=== PATIENT | female | born 1955 | race Caucasian/White ===

== ENCOUNTER 2021-04-03 11:48 | Inpatient (IN) | payer MEDICARE, BC ==
[2021-04-07] MEDS ORDERED: oxyCODONE 5 MG Tab PO ONE (18:03)
[2021-04-07] MEDS ORDERED: Aluminum Hydroxide/Magnesium Hydroxide/Simethicone Susp 30 ML Cup PO PRN (18:07)
[2021-04-07] MEDS ORDERED: Ondansetron 4 MG Tab.DIS PO PRN (18:07)
[2021-04-07] MEDS ORDERED: Calcium Carbonate 500 MG Tab.Chew PO PRN (18:07)
[2021-04-07] MEDS ORDERED: Acetaminophen 500 MG Tab PO PRN (18:16)
[2021-04-07] MEDS ORDERED: Naproxen 250 MG Tab PO PRN (18:17)
[2021-04-07] MEDS ORDERED: CEFAZOLIN 2 GM/50 ML IV SCH (18:30)
[2021-04-07] MEDS ORDERED: Diazepam 5 MG/ML ML Oral Soln 30 ML Bottle PO SCH (18:30)
--- NOTE | 2021-04-07 18:39 | PCM.HP.2 ---
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 She was was admitted to [facility] on 03/27/2021 following a 1 day history of worsening low back pain that radiated down her right leg. She has a history of sciatic back pain for which she had a lumbar discectomy in the past. She initially afebrile but then developed a fever of 102.5. Labs were remarkable for leukocytosis and elevated CRP. She did have an MRI early on that showed possible early discitis at l%-S1 with no signs of osteomyelitis. Her pain was controlled with Dilaudid and Toradol and she was admitted for further management. Her pain worsened and she continued to run a fever. Eventually serial MRI was done along with labs and she was found to have developed positive blood cultures. She was given IV abx and had Infectious Disease and Neurosurgeon Consults. She did undergo PATTI and rule out any vegetation and these studies were negative. Her pain continued and the majority of her hospital stay was getting her pain under control. A lumbar abscess was noted on MRI and neurosurgeon ruled out need for surgery. She then developed constipation from the heavy opiate use for pain control and then also started to have urinary retention that was noted on an MRI. A jacobs was placed and it is planned that it will stay in place until she is more mobile and her constipation is resolved. She comes here for [facility] care and will receive Cefazolin via PICC line for 8 weeks and then also have Therapies. PCP:[facility] in [place] - Related Data Allergies/Adverse Reactions: Allergies Allergy/AdvReac Type Severity Reaction Status Date / Time codeine Allergy Nausea and Verified 04/07/21 18:02 Vomiting Home Medications: Home Meds Acetaminophen 1,000 mg PO BID PRN 04/07/21 [History] Alendronate [Fosamax] 10 mg PO DAILY 04/07/21 [History] Ascorbic Acid [Vitamin C] 500 mg PO DAILY 04/07/21 [History] Calcium Carb/Vit D3/Minerals [Calcium 600+D Plus Minerals] 1 tab PO DAILY 04/07/21 [History] Cholecalciferol (Vitamin D3) [Vitamin D3] 2 tab PO DAILY 04/07/21 [History] Famotidine 20 mg PO BID 04/07/21 [History] Gabapentin [Neurontin] 600 mg PO TID 04/07/21 [History] Heparin Sodium,Porcine [Heparin Lock] 3 ml IV ASDIRECTED PRN 04/07/21 [History] Lidocaine 5% [Lidoderm 5%] 3 patch TOP DAILY 04/07/21 [History] Multivit with Iron,Minerals [Complete Senior] 2 tab PO DAILY 04/07/21 [History] Naproxen [Naprosyn] 500 mg PO BID 04/07/21 [History] Naproxen [Naprosyn] 500 mg PO DAILY PRN 04/07/21 [History] Polyethylene Glycol [Polyox Wsr-301] 1 pack PO BID 04/07/21 [History] Sennosides/Docusate Sodium [Senna-S 8.6-50 mg Tablet] 2 tab PO BID PRN 04/07/21 [History] Sodium Chloride 0.9 % (Flush) [Gerson 0.9% NaCl with Cap] 10 ml IV ASDIRECTED PRN 04/07/21 [History] atorvaSTATin [Lipitor] 20 mg PO BEDTIME 04/07/21 [History] ceFAZolin [Ancef 2 GM/50 ML] 2,000 mg IV Q8H 04/07/21 [History] diazePAM [Valium] 2 mg PO TID 04/07/21 [History] fentaNYL [Duragesic] 25 mcg TOP Q72H 04/07/21 [History] hydrOXYzine pamoate [Hydroxyzine Pamoate] 25 mg PO Q6H PRN 04/07/21 [History] oxyCODONE HCl [Oxycodone HCL] 5 mg PO Q4H PRN 04/07/21 [History] oxyCODONE HCl [Oxycodone HCL] 10 mg PO Q4H PRN 04/07/21 [History] Past Medical History Musculoskeletal History: Reports: Other (See Below) (Discitis of L5-S1) Psychiatric History: Reports: Other (See Below) (Adjustment Disorder with Anxious Mood) Endocrine/Metabolic History: Reports: Obesity/BMI 30+, Other (See Below) (Hyperl ipidemia) - Infectious Disease History Infectious Disease History: Reports: Other (See Below) (MSSA Bacteremia Sepsis) Social & Family History - Tobacco Use Tobacco Use Status *Q: Never Tobacco User Second Hand Smoke Exposure: No - Caffeine Use Caffeine Use: Reports: Coffee Other Caffeine Use: 1 cup a day of coffee - Recreational Drug Use Recreational Drug Use: No - Living Situation & Occupation Living situation: Reports: , with Family H&P Review of Systems - Review of Systems: Review Of Systems: See Below General: Reports: Weakness HEENT: Reports: No Symptoms Pulmonary: Reports: No Symptoms Cardiovascular: Reports: No Symptoms Gastrointestinal: Reports: Constipation Genitourinary: Reports: Retention Musculoskeletal: Reports: Back Pain Skin: Reports: No Symptoms Psychiatric: Reports: No Symptoms Neurological: Reports: No Symptoms Hematologic/Lymphatic: Reports: No Symptoms Immunologic: Reports: No Symptoms Exam - Exam Exam: See Below - Vital Signs Vital Signs: Last Vital Signs Temp 36.6 C 04/07/21 17:15 Pulse 67 04/07/21 17:15 Resp 16 04/07/21 17:15 BP 142/75 H 04/07/21 17:15 Pulse Ox 91 L 04/07/21 18:07 Weight: 81.647 kg - Exam General: Alert, Oriented (Elderly female, dressed in street clothes, pleasant. Familt in room and supportive.) HEENT: Conjunctiva Clear, EACs Clear, Hearing Intact, Mucosa Moist & [place], Nares Patent Neck: Supple, Trachea Midline Lungs: Clear to Auscultation, Normal Respiratory Effort Cardiovascular: Regular Rate, Regular Rhythm, Normal S1, Normal S2 GI/Abdominal Exam: Normal Bowel Sounds, Soft, Non-Tender (Female) Exam: Deferred Rectal (Female) Exam: Deferred Back Exam: Other (Thoracic Back: Positive tenderness noted, no sx of trauma. Lumbar Back: Positive tenderness noted, no signs of trauma, tenderness extends to bilateral hip regions.) Extremities: Normal Inspection, Normal Range of Motion, No Pedal Edema, Normal Capillary Refill Skin: Warm, Dry, Intact Neurological: Cranial Nerves Intact Neuro Extensive - Mental Status: Alert, Oriented x3, Normal Mood/Affect, Normal Cognition, Memory Intact Psychiatric: Alert, Normal Affect, Normal Mood Sepsis Event Note - Focused Exam Vital Signs: Vital Signs Temp Pulse Resp BP Pulse Ox Pulse Ox 04/07/21 18:07 91 L 04/07/21 17:15 36.6 C 67 16 142/75 H 91 L - Problem List (1) Sepsis due to methicillin susceptible Staphylococcus aureus (MSSA) with acute hypercapnic respiratory failure SNOMED Code(s): 606428964 ICD Code: A41.01 - SEPSIS DUE TO METHICILLIN SUSCEPTIBLE STAPHYLOCOCCUS AUREUS; R65.20 - SEVERE SEPSIS WITHOUT SEPTIC SHOCK; J96.02 - ACUTE RESPIRATORY FAILURE WITH HYPERCAPNIA Status: Acute Current Visit: Yes Problem Details: Admitted to [facility] 03/28/21 with back pain and fever. Started on Vanco and Cefepime. Now being admitted her in [place] to [facility] and will continue Cefazolin course for 8 weeks, ending on 05/10/2021. (2) Bacteremia SNOMED Code(s): 7964103 ICD Code: R78.81 - BACTEREMIA Status: Acute Current Visit: Yes Problem Details: See above. Blood Cx positive for MSSA at [place]. (3) Discitis of lumbosacral region SNOMED Code(s): 2186268 ICD Code: M46.47 - DISCITIS, UNSPECIFIED, LUMBOSACRAL REGION Status: Acute Current Visit: Yes Problem Details: Still having significant back pain and needing oral Oxycdone, Naproxsen, and APAP along with Diazepam and Gabpentin. Will work on pain control. Also here for PT/OT to work on strenghtening so she can get back to her own home. (4) Constipation due to opioid therapy SNOMED Code(s): 218014565299069 ICD Code: K59.03 - DRUG INDUCED CONSTIPATION; T40.2X5A - ADVERSE EFFECT OF OTHER OPIOIDS, INITIAL ENCOUNTER Status: Acute Current Visit: Yes Problem Details: Had 2 BMs today prior to leaving [place]. Will monitor while here and using pain meds. Stol softners and laxatives ordered. (5) Urinary retention SNOMED Code(s): 291979811 ICD Code: R33.9 - RETENTION OF URINE, UNSPECIFIED Status: Acute Current Visit: Yes Problem Details: Jacobs is currently in place. Thought to be from the constipation. If bowels are working regularly with increased activity in therapy and pain controlled, will d/c and monitor for urinary retention. (6) Hyperlipidemia SNOMED Code(s): 66117246 ICD Code: E78.5 - HYPERLIPIDEMIA, UNSPECIFIED Status: Acute Current Visit: Yes Problem Details: Stable and will continue Lipitor 20mg po qd. Problem List Initiated/Reviewed/Updated: Yes Orders Last 24hrs: Active Orders 24 hr Category Date Time Status Patient Status [ADT] Stat ADT 04/07/21 18:07 Ordered Ambulate [RC] ASDIRECTED Care 04/07/21 18:07 Ordered Ambulate [RC] PER UNIT ROUTINE Care 04/07/21 18:14 Ordered Central Line Assessment [RC] QSHIFT Care 04/07/21 18:26 Ordered Enema [RC] PRN Care 04/07/21 18:09 Ordered Intake and Output [RC] QSHIFT Care 04/07/21 18:08 Ordered May Shower [RC] ASDIRECTED Care 04/07/21 18:07 Ordered Oxygen Therapy [RC] PRN Care 04/07/21 18:07 Ordered PICC Line [Central Line Insert Checklist] [RC] Care 04/07/21 18:24 Ordered ASDIRECTED Up With Assistance [RC] ASDIRECTED Care 04/07/21 18:07 Ordered VTE/DVT Education [RC] PER UNIT ROUTINE Care 04/07/21 18:07 Ordered Vital Signs [RC] PER UNIT ROUTINE Care 04/07/21 18:07 Ordered Consult to Case Management/Precinct Captain [CONS] Cons 04/07/21 18:07 Ordered Routine OT Evaluation and Treatment [CONS] Routine Cons 04/07/21 18:07 Ordered PT Evaluation and Treatment [CONS] Routine Cons 04/07/21 18:07 Ordered Regular Diet [DIET] Diet 04/07/21 Breakfast Ordered Acetaminophen [Tylenol Extra Strength] Med 04/07/21 18:16 Ordered 1,000 mg PO BID PRN Alendronate [Fosamax] Med 04/08/21 08:00 Ordered 10 mg PO DAILY Alum Hydrox/Mag Hydrox/Simeth [Mag-Al Plus] Med 04/07/21 18:07 Ordered 30 ml PO Q4H PRN Ascorbic Acid [Vitamin C] Med 04/08/21 08:00 Ordered 500 mg PO DAILY Calcium Carb/Vit D3/Minerals [Calcium 600+D Plus Med 04/08/21 08:00 Ordered Minerals] 1 tab PO DAILY Calcium Carbonate [Tums] Med 04/07/21 18:07 Ordered 500 mg PO Q2HR PRN Cholecalciferol (Vitamin D3) [Vitamin D3] Med 04/08/21 08:00 Ordered 50 mcg PO DAILY Docusate Sodium/Sennosides [Senna Plus] Med 04/07/21 18:17 Ordered 2 tab PO BID PRN Famotidine [Pepcid] Med 04/08/21 08:00 Ordered 20 mg PO BID Gabapentin [Neurontin] Med 04/08/21 08:00 Ordered 600 mg PO TID Heparin Sodium,Porcine [Heparin Lock] Med 04/07/21 18:17 Ordered 3 ml IV ASDIRECTED PRN Lidocaine 5% Med 04/08/21 08:00 Ordered 3 patch TOP DAILY Multivit with Iron,Minerals [Complete Senior] Med 04/08/21 08:00 Ordered 2 tab PO DAILY Naproxen [Naprosyn] Med 04/08/21 08:00 Ordered 500 mg PO BID Naproxen [Naprosyn] Med 04/07/21 18:17 Ordered 500 mg PO DAILY PRN Ondansetron [Zofran ODT] Med 04/07/21 18:07 Ordered 4 mg PO Q4H PRN Polyethylene Glycol [Polyox Wsr-301] Med 04/08/21 08:00 Ordered 1 pack PO BID Sodium Chloride 0.9 % (Flush) [Gerson 0.9% NaCl with Med 04/07/21 18:17 Ordered Cap] 10 ml IV ASDIRECTED PRN atorvaSTATin [Lipitor] Med 04/07/21 20:00 Ordered 20 mg PO BEDTIME ceFAZolin [Ancef 2 GM/50 ML] Med 04/07/21 18:30 Ordered 2,000 mg IV Q8H diazePAM [Valium] Med 04/08/21 08:00 Ordered 2 mg PO TID fentaNYL [Duragesic] Med 04/07/21 18:30 Ordered 25 mcg TOP Q72H hydrOXYzine pamoate [Vistaril] Med 04/07/21 18:17 Ordered 25 mg PO Q6H PRN oxyCODONE HCl Med 04/07/21 18:17 Ordered 10 mg PO Q4H PRN oxyCODONE HCl Med 04/07/21 18:17 Ordered 5 mg PO Q4H PRN Central Line PICC Discontinue [OM.PC] Routine Oth 04/07/21 18:19 Ordered Family to Bring [COMM] Click to Edit Oth 04/07/21 18:21 Ordered Resuscitation Status Routine Resus Stat 04/07/21 18:07 Ordered Medication Orders Acetaminophen (Acetaminophen 500 Mg Tab) 1,000 mg PO BID PRN PRN Reason: Fever Al Hydroxide/Mg Hydroxide (Aluminum Hydroxide/Magnesium Hydroxide/Simethicone Susp 30 Ml Cup) 30 ml PO Q4H PRN PRN Reason: Nausea Ascorbic Acid (Ascorbic Acid 500 Mg Tab) 500 mg PO DAILY [facility] Atorvastatin Calcium (Atorvastatin 10 Mg Tab) 20 mg PO BEDTIME [facility] Calcium Carbonate/Glycine (Calcium Carbonate 500 Mg Tab.Chew) 500 mg PO Q2HR PRN PRN Reason: Nausea Cholecalciferol (Cholecalciferol (Vitamin D3) 25 Mcg Tab) 50 mcg PO DAILY [facility] Famotidine (Famotidine 20 Mg Tab) 20 mg PO BID [facility] Fentanyl (Fentanyl 12 Mcg/Hr Transdermal Patch) 25 mcg TOP Q72H [facility] Gabapentin (Gabapentin 300 Mg Cap) 600 mg PO TID [facility] Hydroxyzine Pamoate (Hydroxyzine Pamoate 25 Mg Cap) 25 mg PO Q6H PRN PRN Reason: Anxiety Non-Formulary Medication (Alendronate [Fosamax]) 10 mg PO DAILY [facility] Non-Formulary Medication (Calcium Carb/Vit D3/Minerals [Calcium 600+D Plus Minerals]) 1 tab PO DAILY [facility] Non-Formulary Medication (Cefazolin [Ancef 2 Gm/50 Ml]) 2,000 mg IV Q8H [facility] Stop: 05/10/21 23:00 Non-Formulary Medication (Diazepam [Valium]) 2 mg PO TID [facility] Non-Formulary Medication (Heparin Sodium,Porcine [Heparin Lock]) 3 ml IV ASDIRECTED PRN PRN Reason: PICC Non-Formulary Medication (Lidocaine 5%) 3 patch TOP DAILY [facility] Non-Formulary Medication (Multivit With Iron,Minerals [Complete Senior]) 2 tab PO DAILY [facility] Non-Formulary Medication (Naproxen [Naprosyn]) 500 mg PO BID [facility] Non-Formulary Medication (Naproxen [Naprosyn]) 500 mg PO DAILY PRN PRN Reason: Pain Non-Formulary Medication (Oxycodone Hcl) 5 mg PO Q4H PRN PRN Reason: Pain Non-Formulary Medication (Oxycodone Hcl) 10 mg PO Q4H PRN PRN Reason: Pain Non-Formulary Medication (Polyethylene Glycol [Polyox Wsr-301]) 1 pack PO BID [facility] Non-Formulary Medication (Sodium Chloride 0.9 % (Flush) [Gerson 0.9% Nacl With Cap]) 10 ml IV ASDIRECTED PRN PRN Reason: PICC Ondansetron HCl (Ondansetron 4 Mg Tab.Dis) 4 mg PO Q4H PRN PRN Reason: Nausea/Vomiting Senna/Docusate Sodium (Docusate Sodium/Sennosides 50-8.6 Mg Tab) 2 tab PO BID PRN PRN Reason: Constipation Assessment/Plan Comment:: See above. - Mortality Measure Prognosis:: Good
[2021-04-07] MEDS: ceFAZolin 2 GM in Premix Bag 1 BAG IV SCH (19:49)
[2021-04-07] MEDS: atorvaSTATin 10 MG Tab PO SCH (19:49)
[2021-04-07] MEDS: Polyethylene Glycol 3350 Powder 17 GM Packet PO SCH (19:51)
[2021-04-07] MEDS: Naproxen 250 MG Tab PO SCH (19:51)
[2021-04-07] MEDS: Sodium Chloride 0.9% 10 ML Syringe FLUSH PRN (20:28)
[2021-04-08] MEDS: Sodium Chloride 0.9% 10 ML Syringe FLUSH PRN ×2 (02:21→17:32)
[2021-04-08] MEDS: ceFAZolin 2 GM in Premix Bag 1 BAG IV SCH ×3 (02:21→17:33)
[2021-04-08] MEDS: oxyCODONE 5 MG Tab PO PRN ×4 (04:07→19:50)
[2021-04-08] MEDS ORDERED: ALENDRONATE 10 MG PO SCH (08:00)
[2021-04-08] MEDS: Lidocaine 4% 1 each Patch TOP SCH (08:38)
[2021-04-08] MEDS: Cholecalciferol (Vitamin D3) 25 MCG Tab PO SCH (08:39)
[2021-04-08] MEDS: hydrOXYzine Pamoate 25 MG Cap PO PRN (08:39)
[2021-04-08] MEDS: Multivitamins with Iron and Minerals Tab.Chew PO SCH (08:39)
[2021-04-08] MEDS: Gabapentin 300 MG Cap PO SCH ×3 (08:40→17:31)
[2021-04-08] MEDS: Ascorbic Acid 500 MG Tab PO SCH (08:40)
[2021-04-08] MEDS: Famotidine 20 MG Tab PO SCH ×2 (08:41→17:31)
[2021-04-08] MEDS: Calcium Carbonate/Vitamin D3 625 MG-125 Unit Tab PO SCH (08:41)
[2021-04-08] MEDS: Diazepam 5 MG Tab PO SCH ×3 (08:41→17:31)
[2021-04-08] MEDS: Naproxen 250 MG Tab PO SCH ×2 (08:42→17:43)
[2021-04-08] MEDS: Polyethylene Glycol 3350 Powder 17 GM Packet PO SCH ×2 (13:36→17:32)
[2021-04-08] MEDS: fentaNYL 50 MCG/HR Transdermal Patch TRDERM SCH (15:20)
[2021-04-08] MEDS: atorvaSTATin 10 MG Tab PO SCH (19:50)
[2021-04-08] MEDS ORDERED: Naloxone 0.4 MG/ML SDV IVPUSH PRN (20:54)
[2021-04-09] MEDS: ceFAZolin 2 GM in Premix Bag 1 BAG IV SCH ×3 (02:28→17:40)
[2021-04-09] MEDS: Sodium Chloride 0.9% 10 ML Syringe FLUSH PRN ×3 (02:29→17:41)
[2021-04-09] MEDS: Ascorbic Acid 500 MG Tab PO SCH (08:00)
[2021-04-09] MEDS: Multivitamins with Iron and Minerals Tab.Chew PO SCH (08:00)
[2021-04-09] MEDS: Diazepam 5 MG Tab PO SCH ×3 (08:01→17:37)
[2021-04-09] MEDS: oxyCODONE 5 MG Tab PO PRN ×2 (08:01→12:55)
[2021-04-09] MEDS: Gabapentin 300 MG Cap PO SCH ×3 (08:01→17:37)
[2021-04-09] MEDS: Naproxen 250 MG Tab PO SCH ×2 (08:01→17:37)
[2021-04-09] MEDS: Calcium Carbonate/Vitamin D3 625 MG-125 Unit Tab PO SCH (08:01)
[2021-04-09] MEDS: Cholecalciferol (Vitamin D3) 25 MCG Tab PO SCH (08:02)
[2021-04-09] MEDS: Famotidine 20 MG Tab PO SCH ×2 (08:02→17:38)
[2021-04-09] MEDS: Lidocaine 4% 1 each Patch TOP SCH (08:02)
[2021-04-09] MEDS: Polyethylene Glycol 3350 Powder 17 GM Packet PO SCH ×2 (08:09→17:40)
[2021-04-09] MEDS: atorvaSTATin 10 MG Tab PO SCH (19:32)
[2021-04-10] MEDS: Sodium Chloride 0.9% 10 ML Syringe FLUSH PRN (02:30)
[2021-04-10] MEDS: ceFAZolin 2 GM in Premix Bag 1 BAG IV SCH ×3 (02:30→17:44)
[2021-04-10] MEDS: Lidocaine 4% 1 each Patch TOP SCH (07:51)
[2021-04-10] MEDS: Polyethylene Glycol 3350 Powder 17 GM Packet PO SCH ×2 (07:52→17:44)
[2021-04-10] MEDS: Multivitamins with Iron and Minerals Tab.Chew PO SCH (07:56)
[2021-04-10] MEDS: oxyCODONE 5 MG Tab PO PRN ×3 (07:57→19:35)
[2021-04-10] MEDS: Famotidine 20 MG Tab PO SCH ×2 (07:57→17:44)
[2021-04-10] MEDS: Gabapentin 300 MG Cap PO SCH ×3 (07:58→17:44)
[2021-04-10] MEDS ORDERED: fentaNYL 25 MCG/HR Transdermal Patch TOP SCH (08:00)
[2021-04-10] MEDS: Naproxen 250 MG Tab PO SCH ×2 (08:00→17:45)
[2021-04-10] MEDS: Calcium Carbonate/Vitamin D3 625 MG-125 Unit Tab PO SCH (08:02)
[2021-04-10] MEDS: Ascorbic Acid 500 MG Tab PO SCH (08:02)
[2021-04-10] MEDS: Diazepam 5 MG Tab PO SCH ×3 (08:03→19:38)
[2021-04-10] MEDS: Cholecalciferol (Vitamin D3) 25 MCG Tab PO SCH (08:04)
[2021-04-10] MEDS ORDERED: Saliva Substitute Oral Spray 120 ML Bottle MUCMEM PRN (11:52)
[2021-04-10] MEDS: atorvaSTATin 10 MG Tab PO SCH (19:36)
[2021-04-11] MEDS: ceFAZolin 2 GM in Premix Bag 1 BAG IV SCH ×3 (02:54→18:11)
[2021-04-11] MEDS: Sodium Chloride 0.9% 10 ML Syringe FLUSH PRN ×3 (03:09→18:12)
[2021-04-11] MEDS: Polyethylene Glycol 3350 Powder 17 GM Packet PO SCH ×2 (07:50→17:37)
[2021-04-11] MEDS: Gabapentin 300 MG Cap PO SCH ×3 (07:51→17:36)
[2021-04-11] MEDS: Ascorbic Acid 500 MG Tab PO SCH (07:52)
[2021-04-11] MEDS: Naproxen 250 MG Tab PO SCH (07:52)
[2021-04-11] MEDS: Diazepam 5 MG Tab PO SCH ×2 (07:53→15:06)
[2021-04-11] MEDS: Cholecalciferol (Vitamin D3) 25 MCG Tab PO SCH (07:53)
[2021-04-11] MEDS: Multivitamin Tab PO SCH (07:54)
[2021-04-11] MEDS: Calcium Carbonate/Vitamin D3 625 MG-125 Unit Tab PO SCH (07:54)
[2021-04-11] MEDS: Famotidine 20 MG Tab PO SCH ×2 (07:54→17:36)
[2021-04-11] MEDS: Lidocaine 4% 1 each Patch TOP SCH (07:55)
[2021-04-11] MEDS: Alendronate 70 MG Tab PO SCH (07:59)
[2021-04-11] MEDS: oxyCODONE 5 MG Tab PO PRN (17:37)
[2021-04-11] MEDS: fentaNYL 50 MCG/HR Transdermal Patch TRDERM SCH (18:52)
[2021-04-11] MEDS: Acetaminophen 500 MG Tab PO SCH (19:41)
[2021-04-11] MEDS: atorvaSTATin 10 MG Tab PO SCH (19:41)
[2021-04-12] MEDS: ceFAZolin 2 GM in Premix Bag 1 BAG IV SCH ×3 (02:33→17:34)
[2021-04-12] MEDS: Sodium Chloride 0.9% 10 ML Syringe FLUSH PRN ×4 (02:34→17:35)
[2021-04-12] MEDS: Polyethylene Glycol 3350 Powder 17 GM Packet PO SCH ×2 (07:56→17:34)
[2021-04-12] MEDS: Multivitamin Tab PO SCH (07:57)
[2021-04-12] MEDS: Lidocaine 4% 1 each Patch TOP SCH (07:57)
[2021-04-12] MEDS: Acetaminophen 500 MG Tab PO SCH ×3 (07:58→19:38)
[2021-04-12] MEDS: Ascorbic Acid 500 MG Tab PO SCH (07:59)
[2021-04-12] MEDS: Famotidine 20 MG Tab PO SCH ×2 (07:59→17:34)
[2021-04-12] MEDS: Calcium Carbonate/Vitamin D3 625 MG-125 Unit Tab PO SCH (07:59)
[2021-04-12] MEDS: Gabapentin 300 MG Cap PO SCH ×3 (08:00→17:33)
[2021-04-12] MEDS: Cholecalciferol (Vitamin D3) 25 MCG Tab PO SCH (08:07)
[2021-04-12] MEDS: oxyCODONE 5 MG Tab PO PRN ×3 (10:34→19:38)
[2021-04-12] MEDS: hydrOXYzine Pamoate 25 MG Cap PO PRN ×2 (11:00→17:34)
[2021-04-12] MEDS ORDERED: Morphine 2 MG/ML SYRINGE IVPUSH ONE (15:20)
[2021-04-12] MEDS: atorvaSTATin 10 MG Tab PO SCH (19:38)
[2021-04-13] MEDS: ceFAZolin 2 GM in Premix Bag 1 BAG IV SCH ×3 (02:32→17:52)
[2021-04-13] MEDS: Sodium Chloride 0.9% 10 ML Syringe FLUSH PRN (02:33)
[2021-04-13] MEDS: hydrOXYzine Pamoate 25 MG Cap PO PRN (02:36)
[2021-04-13] MEDS: oxyCODONE 5 MG Tab PO PRN ×4 (02:37→20:44)
[2021-04-13] MEDS: Cholecalciferol (Vitamin D3) 25 MCG Tab PO SCH (08:13)
[2021-04-13] MEDS: Multivitamin Tab PO SCH (08:13)
[2021-04-13] MEDS: Ascorbic Acid 500 MG Tab PO SCH (08:14)
[2021-04-13] MEDS: Acetaminophen 500 MG Tab PO SCH ×3 (08:14→20:44)
[2021-04-13] MEDS: Famotidine 20 MG Tab PO SCH ×2 (08:15→17:05)
[2021-04-13] MEDS: Gabapentin 300 MG Cap PO SCH ×3 (08:15→17:05)
[2021-04-13] MEDS: Calcium Carbonate/Vitamin D3 625 MG-125 Unit Tab PO SCH (08:15)
[2021-04-13] MEDS: Polyethylene Glycol 3350 Powder 17 GM Packet PO SCH ×2 (08:15→17:06)
[2021-04-13] MEDS: Lidocaine 4% 1 each Patch TOP SCH (08:15)
[2021-04-13] MEDS: atorvaSTATin 10 MG Tab PO SCH (20:44)
[2021-04-14] MEDS: ceFAZolin 2 GM in Premix Bag 1 BAG IV SCH ×3 (02:42→17:37)
[2021-04-14] MEDS: oxyCODONE 5 MG Tab PO PRN ×5 (02:45→21:43)
[2021-04-14] MEDS: hydrOXYzine Pamoate 25 MG Cap PO PRN ×2 (06:20→12:24)
[2021-04-14] MEDS: Lidocaine 4% 1 each Patch TOP SCH (08:04)
[2021-04-14] MEDS: Polyethylene Glycol 3350 Powder 17 GM Packet PO SCH ×2 (08:04→17:37)
[2021-04-14] MEDS: Multivitamin Tab PO SCH (08:05)
[2021-04-14] MEDS: Calcium Carbonate/Vitamin D3 625 MG-125 Unit Tab PO SCH (08:06)
[2021-04-14] MEDS: Famotidine 20 MG Tab PO SCH ×2 (08:07→17:37)
[2021-04-14] MEDS: Acetaminophen 500 MG Tab PO SCH ×3 (08:07→19:52)
[2021-04-14] MEDS: Cholecalciferol (Vitamin D3) 25 MCG Tab PO SCH (08:07)
[2021-04-14] MEDS: Ascorbic Acid 500 MG Tab PO SCH (08:07)
[2021-04-14] MEDS: Gabapentin 300 MG Cap PO SCH ×3 (08:08→17:36)
[2021-04-14] MEDS: Sodium Chloride 0.9% 10 ML Syringe FLUSH PRN ×2 (11:06→17:39)
[2021-04-14] MEDS: atorvaSTATin 10 MG Tab PO SCH (19:53)
[2021-04-15] MEDS: ceFAZolin 2 GM in Premix Bag 1 BAG IV SCH ×3 (02:43→17:47)
[2021-04-15] MEDS: Sodium Chloride 0.9% 10 ML Syringe FLUSH PRN ×4 (02:44→18:39)
[2021-04-15] MEDS: oxyCODONE 5 MG Tab PO PRN ×5 (03:26→22:18)
[2021-04-15] MEDS: Gabapentin 300 MG Cap PO SCH ×3 (08:18→17:45)
[2021-04-15] MEDS: Calcium Carbonate/Vitamin D3 625 MG-125 Unit Tab PO SCH (08:19)
[2021-04-15] MEDS: Acetaminophen 500 MG Tab PO SCH ×3 (08:19→19:51)
[2021-04-15] MEDS: hydrOXYzine Pamoate 25 MG Cap PO PRN (08:25)
[2021-04-15] MEDS: Ascorbic Acid 500 MG Tab PO SCH (08:26)
[2021-04-15] MEDS: Multivitamin Tab PO SCH (08:26)
[2021-04-15] MEDS: Cholecalciferol (Vitamin D3) 25 MCG Tab PO SCH (08:26)
[2021-04-15] MEDS: Famotidine 20 MG Tab PO SCH ×2 (08:27→17:45)
[2021-04-15] MEDS: Lidocaine 4% 1 each Patch TOP SCH (08:35)
[2021-04-15] MEDS: Polyethylene Glycol 3350 Powder 17 GM Packet PO SCH ×2 (09:42→17:46)
[2021-04-15] MEDS: atorvaSTATin 10 MG Tab PO SCH (19:51)
[2021-04-16] MEDS: ceFAZolin 2 GM in Premix Bag 1 BAG IV SCH ×3 (02:13→17:48)
[2021-04-16] MEDS: Sodium Chloride 0.9% 10 ML Syringe FLUSH PRN ×4 (02:14→18:25)
[2021-04-16] MEDS: oxyCODONE 5 MG Tab PO PRN ×5 (03:00→20:00)
[2021-04-16] MEDS: Lidocaine 4% 1 each Patch TOP SCH (07:56)
[2021-04-16] MEDS: Calcium Carbonate/Vitamin D3 625 MG-125 Unit Tab PO SCH (07:58)
[2021-04-16] MEDS: Multivitamin Tab PO SCH (07:58)
[2021-04-16] MEDS: Cholecalciferol (Vitamin D3) 25 MCG Tab PO SCH (07:59)
[2021-04-16] MEDS: hydrOXYzine Pamoate 25 MG Cap PO PRN ×2 (07:59→13:58)
[2021-04-16] MEDS: Gabapentin 300 MG Cap PO SCH ×3 (08:00→17:49)
[2021-04-16] MEDS: Famotidine 20 MG Tab PO SCH ×2 (08:00→17:49)
[2021-04-16] MEDS: Ascorbic Acid 500 MG Tab PO SCH (08:00)
[2021-04-16] MEDS: Acetaminophen 500 MG Tab PO SCH ×3 (08:01→20:00)
[2021-04-16] MEDS: Polyethylene Glycol 3350 Powder 17 GM Packet PO SCH ×2 (08:05→17:48)
[2021-04-16] MEDS: atorvaSTATin 10 MG Tab PO SCH (20:00)
[2021-04-17] MEDS: oxyCODONE 5 MG Tab PO PRN ×5 (02:21→17:53)
[2021-04-17] MEDS: ceFAZolin 2 GM in Premix Bag 1 BAG IV SCH ×3 (02:23→17:52)
[2021-04-17] MEDS: Sodium Chloride 0.9% 10 ML Syringe FLUSH PRN ×4 (02:24→18:23)
[2021-04-17] MEDS: Lidocaine 4% 1 each Patch TOP SCH (07:31)
[2021-04-17] MEDS: Polyethylene Glycol 3350 Powder 17 GM Packet PO SCH ×2 (07:32→17:54)
[2021-04-17] MEDS: Ascorbic Acid 500 MG Tab PO SCH (07:33)
[2021-04-17] MEDS: Calcium Carbonate/Vitamin D3 625 MG-125 Unit Tab PO SCH (07:33)
[2021-04-17] MEDS: Famotidine 20 MG Tab PO SCH ×2 (07:33→17:53)
[2021-04-17] MEDS: Acetaminophen 500 MG Tab PO SCH ×3 (07:34→19:39)
[2021-04-17] MEDS: Gabapentin 300 MG Cap PO SCH ×3 (07:34→17:53)
[2021-04-17] MEDS: Multivitamin Tab PO SCH (07:35)
[2021-04-17] MEDS: hydrOXYzine Pamoate 25 MG Cap PO PRN ×2 (07:35→17:52)
[2021-04-17] MEDS: Cholecalciferol (Vitamin D3) 25 MCG Tab PO SCH (07:35)
[2021-04-17] MEDS: atorvaSTATin 10 MG Tab PO SCH (19:38)
[2021-04-18] MEDS: ceFAZolin 2 GM in Premix Bag 1 BAG IV SCH ×3 (02:16→18:03)
[2021-04-18] MEDS: Sodium Chloride 0.9% 10 ML Syringe FLUSH PRN (02:17)
[2021-04-18] MEDS: oxyCODONE 5 MG Tab PO PRN ×4 (02:30→20:44)
[2021-04-18] MEDS: Alendronate 70 MG Tab PO SCH (07:40)
[2021-04-18] MEDS: Polyethylene Glycol 3350 Powder 17 GM Packet PO SCH ×2 (07:59→17:10)
[2021-04-18] MEDS: Cholecalciferol (Vitamin D3) 25 MCG Tab PO SCH (08:00)
[2021-04-18] MEDS: Calcium Carbonate/Vitamin D3 625 MG-125 Unit Tab PO SCH (08:00)
[2021-04-18] MEDS: Multivitamin Tab PO SCH (08:00)
[2021-04-18] MEDS: Gabapentin 300 MG Cap PO SCH ×3 (08:00→17:10)
[2021-04-18] MEDS: Ascorbic Acid 500 MG Tab PO SCH (08:00)
[2021-04-18] MEDS: hydrOXYzine Pamoate 25 MG Cap PO PRN (08:00)
[2021-04-18] MEDS: Acetaminophen 500 MG Tab PO SCH ×3 (08:01→20:44)
[2021-04-18] MEDS: Famotidine 20 MG Tab PO SCH ×2 (08:02→17:10)
[2021-04-18] MEDS: Lidocaine 4% 1 each Patch TOP SCH (08:03)
[2021-04-18] MEDS: atorvaSTATin 10 MG Tab PO SCH (20:44)
[2021-04-19] MEDS: Sodium Chloride 0.9% 10 ML Syringe FLUSH PRN ×3 (03:01→11:38)
[2021-04-19] MEDS: ceFAZolin 2 GM in Premix Bag 1 BAG IV SCH ×3 (03:01→19:59)
[2021-04-19] MEDS: oxyCODONE 5 MG Tab PO PRN ×5 (03:15→19:57)
[2021-04-19] MEDS: hydrOXYzine Pamoate 25 MG Cap PO PRN ×2 (06:34→12:07)
[2021-04-19] MEDS: Acetaminophen 500 MG Tab PO SCH ×4 (06:34→19:57)
[2021-04-19] MEDS: Cholecalciferol (Vitamin D3) 25 MCG Tab PO SCH (07:39)
[2021-04-19] MEDS: Calcium Carbonate/Vitamin D3 625 MG-125 Unit Tab PO SCH (07:39)
[2021-04-19] MEDS: Lidocaine 4% 1 each Patch TOP SCH (07:41)
[2021-04-19] MEDS: Gabapentin 300 MG Cap PO SCH ×3 (07:41→19:58)
[2021-04-19] MEDS: Ascorbic Acid 500 MG Tab PO SCH (07:41)
[2021-04-19] MEDS: Multivitamin Tab PO SCH (07:41)
[2021-04-19] MEDS: Famotidine 20 MG Tab PO SCH ×2 (07:41→19:58)
[2021-04-19] MEDS: Polyethylene Glycol 3350 Powder 17 GM Packet PO SCH (07:42)
[2021-04-19] MEDS: atorvaSTATin 10 MG Tab PO SCH (19:59)
[2021-04-20] MEDS: Sodium Chloride 0.9% 10 ML Syringe FLUSH PRN ×3 (01:42→11:29)
[2021-04-20] MEDS: ceFAZolin 2 GM in Premix Bag 1 BAG IV SCH ×3 (01:42→18:24)
[2021-04-20] MEDS: oxyCODONE 5 MG Tab PO PRN ×3 (02:25→21:06)
[2021-04-20] MEDS: Polyethylene Glycol 3350 Powder 17 GM Packet PO SCH (08:55)
[2021-04-20] MEDS: Multivitamin Tab PO SCH (08:55)
[2021-04-20] MEDS: Famotidine 20 MG Tab PO SCH ×2 (08:56→17:30)
[2021-04-20] MEDS: Gabapentin 300 MG Cap PO SCH ×3 (08:56→17:29)
[2021-04-20] MEDS: Acetaminophen 500 MG Tab PO SCH ×3 (08:57→21:05)
[2021-04-20] MEDS: Calcium Carbonate/Vitamin D3 625 MG-125 Unit Tab PO SCH (08:58)
[2021-04-20] MEDS: Cholecalciferol (Vitamin D3) 25 MCG Tab PO SCH (08:58)
[2021-04-20] MEDS: Ascorbic Acid 500 MG Tab PO SCH (08:58)
[2021-04-20] MEDS: Lidocaine 4% 1 each Patch TOP SCH (09:00)
[2021-04-20] MEDS: atorvaSTATin 10 MG Tab PO SCH (21:04)
[2021-04-21] MEDS: ceFAZolin 2 GM in Premix Bag 1 BAG IV SCH ×3 (03:44→18:24)
[2021-04-21] MEDS: oxyCODONE 5 MG Tab PO PRN ×3 (04:33→18:26)
[2021-04-21] MEDS: Ascorbic Acid 500 MG Tab PO SCH (08:07)
[2021-04-21] MEDS: Famotidine 20 MG Tab PO SCH ×2 (08:07→18:24)
[2021-04-21] MEDS: Polyethylene Glycol 3350 Powder 17 GM Packet PO SCH (08:07)
[2021-04-21] MEDS: Calcium Carbonate/Vitamin D3 625 MG-125 Unit Tab PO SCH (08:07)
[2021-04-21] MEDS: Lidocaine 4% 1 each Patch TOP SCH (08:07)
[2021-04-21] MEDS: Gabapentin 300 MG Cap PO SCH ×3 (08:08→18:24)
[2021-04-21] MEDS: Multivitamin Tab PO SCH (08:08)
[2021-04-21] MEDS: Cholecalciferol (Vitamin D3) 25 MCG Tab PO SCH (08:08)
[2021-04-21] MEDS: Acetaminophen 500 MG Tab PO SCH ×3 (08:09→21:47)
[2021-04-21] MEDS: Sodium Chloride 0.9% 10 ML Syringe FLUSH PRN ×3 (11:26→18:24)
[2021-04-21] MEDS: atorvaSTATin 10 MG Tab PO SCH (21:48)
[2021-04-22] MEDS: ceFAZolin 2 GM in Premix Bag 1 BAG IV SCH ×3 (02:41→19:02)
[2021-04-22] MEDS: oxyCODONE 5 MG Tab PO PRN ×2 (04:32→17:48)
[2021-04-22] MEDS: Ascorbic Acid 500 MG Tab PO SCH (08:01)
[2021-04-22] MEDS: Polyethylene Glycol 3350 Powder 17 GM Packet PO SCH (08:01)
[2021-04-22] MEDS: Lidocaine 4% 1 each Patch TOP SCH (08:01)
[2021-04-22] MEDS: Famotidine 20 MG Tab PO SCH ×2 (08:01→17:48)
[2021-04-22] MEDS: Acetaminophen 500 MG Tab PO SCH ×3 (08:02→19:04)
[2021-04-22] MEDS: Cholecalciferol (Vitamin D3) 25 MCG Tab PO SCH (08:02)
[2021-04-22] MEDS: Calcium Carbonate/Vitamin D3 625 MG-125 Unit Tab PO SCH (08:02)
[2021-04-22] MEDS: Multivitamin Tab PO SCH (08:02)
[2021-04-22] MEDS: Gabapentin 300 MG Cap PO SCH ×3 (08:03→17:48)
[2021-04-22] MEDS: Sodium Chloride 0.9% 10 ML Syringe FLUSH PRN (10:57)
[2021-04-22] MEDS: atorvaSTATin 10 MG Tab PO SCH (19:04)
[2021-04-23] MEDS: ceFAZolin 2 GM in Premix Bag 1 BAG IV SCH ×3 (02:57→17:52)
[2021-04-23] MEDS: Cholecalciferol (Vitamin D3) 25 MCG Tab PO SCH (07:05)
[2021-04-23] MEDS: Calcium Carbonate/Vitamin D3 625 MG-125 Unit Tab PO SCH (07:05)
[2021-04-23] MEDS: Famotidine 20 MG Tab PO SCH ×2 (07:06→17:52)
[2021-04-23] MEDS: Polyethylene Glycol 3350 Powder 17 GM Packet PO SCH (07:06)
[2021-04-23] MEDS: Gabapentin 300 MG Cap PO SCH ×3 (07:06→17:52)
[2021-04-23] MEDS: Multivitamin Tab PO SCH (07:06)
[2021-04-23] MEDS: Acetaminophen 500 MG Tab PO SCH ×3 (07:06→20:44)
[2021-04-23] MEDS: Ascorbic Acid 500 MG Tab PO SCH (07:06)
[2021-04-23] MEDS: Lidocaine 4% 1 each Patch TOP SCH (07:07)
[2021-04-23] MEDS: oxyCODONE 5 MG Tab PO PRN ×3 (07:08→20:44)
[2021-04-23] MEDS: Sodium Chloride 0.9% 10 ML Syringe FLUSH PRN ×4 (11:16→18:35)
[2021-04-23] MEDS: hydrOXYzine Pamoate 25 MG Cap PO PRN (18:35)
[2021-04-23] MEDS: atorvaSTATin 10 MG Tab PO SCH (20:44)
[2021-04-24] MEDS: oxyCODONE 5 MG Tab PO PRN ×4 (02:44→18:16)
[2021-04-24] MEDS: ceFAZolin 2 GM in Premix Bag 1 BAG IV SCH ×3 (02:44→18:16)
[2021-04-24] MEDS: Acetaminophen 500 MG Tab PO SCH ×3 (07:43→20:38)
[2021-04-24] MEDS: Multivitamin Tab PO SCH (07:43)
[2021-04-24] MEDS: Calcium Carbonate/Vitamin D3 625 MG-125 Unit Tab PO SCH (07:43)
[2021-04-24] MEDS: Cholecalciferol (Vitamin D3) 25 MCG Tab PO SCH (07:43)
[2021-04-24] MEDS: Gabapentin 300 MG Cap PO SCH ×3 (07:44→17:42)
[2021-04-24] MEDS: Famotidine 20 MG Tab PO SCH ×2 (07:44→17:42)
[2021-04-24] MEDS: Ascorbic Acid 500 MG Tab PO SCH (07:44)
[2021-04-24] MEDS: Polyethylene Glycol 3350 Powder 17 GM Packet PO SCH (07:45)
[2021-04-24] MEDS: Lidocaine 4% 1 each Patch TOP SCH (07:45)
[2021-04-24] MEDS ORDERED: Gadobenate Dimeglumine 529 MG/ML 20 ML SDV IVPUSH ONE (09:23)
[2021-04-24] MEDS: hydrOXYzine Pamoate 25 MG Cap PO PRN ×2 (11:38→18:17)
[2021-04-24] MEDS: atorvaSTATin 10 MG Tab PO SCH (20:38)
[2021-04-25] MEDS: Sodium Chloride 0.9% 10 ML Syringe FLUSH PRN ×2 (03:29→03:30)
[2021-04-25] MEDS: ceFAZolin 2 GM in Premix Bag 1 BAG IV SCH ×3 (03:29→18:35)
[2021-04-25] MEDS: hydrOXYzine Pamoate 25 MG Cap PO PRN ×2 (04:17→16:19)
[2021-04-25] MEDS: oxyCODONE 5 MG Tab PO PRN ×4 (04:17→17:58)
[2021-04-25] MEDS: Alendronate 70 MG Tab PO SCH (07:03)
[2021-04-25] MEDS: Polyethylene Glycol 3350 Powder 17 GM Packet PO SCH (08:11)
[2021-04-25] MEDS: Lidocaine 4% 1 each Patch TOP SCH (08:12)
[2021-04-25] MEDS: Multivitamin Tab PO SCH (08:12)
[2021-04-25] MEDS: Cholecalciferol (Vitamin D3) 25 MCG Tab PO SCH (08:12)
[2021-04-25] MEDS: Calcium Carbonate/Vitamin D3 625 MG-125 Unit Tab PO SCH (08:13)
[2021-04-25] MEDS: Ascorbic Acid 500 MG Tab PO SCH (08:13)
[2021-04-25] MEDS: Famotidine 20 MG Tab PO SCH ×2 (08:13→18:34)
[2021-04-25] MEDS: Acetaminophen 500 MG Tab PO SCH ×2 (08:14→14:09)
[2021-04-25] MEDS: Gabapentin 300 MG Cap PO SCH ×3 (08:14→18:34)
== END 2021-04-25 18:05 | DRG 872 ==
LOC: LL.MS 04-07 17:08
PROVIDERS: ADMIT Nurse Practitioner Family; ATTEND Physician Assistant
DX: A41.02 Sepsis due to Methicillin resistant Staphylococcus aureus (principal); J96.12 Chronic respiratory failure with hypercapnia; M46.46 Discitis, unspecified, lumbar region; K59.03 Drug induced constipation; T40.605A Adverse effect of unspecified narcotics, initial encounter; E78.5 Hyperlipidemia, unspecified; R33.9 Retention of urine, unspecified; Z88.5 Allergy status to narcotic agent; Z79.899 Other long term (current) drug therapy
CPT/HCPCS: 36415; 72158; 82565; 84460; 85025; 85652; 86140; 97110-GO; 97110-GP; 97112-GP; 97161-GP; 97165-GO; 97530-GO; 97530-GP; 97535-GO; A9270-GY; J0690; J1642; J2270; Q0177

== ENCOUNTER 2021-04-27 09:23 | Inpatient (IN) | payer MEDICARE, BC ==
[2021-04-27] MEDS: oxyCODONE 5 MG Tab PO PRN ×2 (15:03→21:08)
[2021-04-27] MEDS: Oxacillin 2 GM in Sodium Chloride 0.9% 100 ML IV SCH ×2 (16:13→19:50)
[2021-04-27] MEDS: Sodium Chloride 0.9% 10 ML Syringe FLUSH SCH ×4 (16:15→20:54)
[2021-04-27] MEDS ORDERED: Acetaminophen 500 MG Tab PO PRN (17:09)
--- NOTE | 2021-04-27 17:14 | PCM.SN.2 ---
- Free Text/Narrative Note: 04/25/2021 Late (repeat) entry: Patient evaluated at bedside and MRI reviewed with patient. Discussed care plan and transfer as arranged through [facility]. See EPIC documentation. Patient to be transferred to [facility] with neurosurgery consultation. Patient aware. Time Documentation
[2021-04-27] MEDS: Famotidine 20 MG Tab PO SCH (17:57)
[2021-04-27] MEDS: Gabapentin 300 MG Cap PO SCH (17:57)
[2021-04-27] MEDS: Acetaminophen 500 MG Tab PO SCH (17:58)
[2021-04-27] MEDS ORDERED: oxyCODONE 5 MG Tab PO PRN (18:03)
[2021-04-27] MEDS ORDERED: Sodium Chloride 0.9% 10 ML Syringe IV PRN (18:14)
[2021-04-27] MEDS: atorvaSTATin 10 MG Tab PO SCH (19:48)
[2021-04-27] MEDS: Polyethylene Glycol 3350 Powder 17 GM Packet PO SCH (19:49)
[2021-04-27] MEDS: Remove Patch LIDOCAINE PATCHES TRDERM SCH (19:49)
[2021-04-27] MEDS: hydrOXYzine Pamoate 25 MG Cap PO PRN (21:08)
[2021-04-28] MEDS: Sodium Chloride 0.9% 10 ML Syringe FLUSH SCH ×12 (00:05→20:55)
[2021-04-28] MEDS: Oxacillin 2 GM in Sodium Chloride 0.9% 100 ML IV SCH ×6 (00:05→20:55)
[2021-04-28] MEDS: oxyCODONE 5 MG Tab PO PRN ×3 (07:27→20:53)
[2021-04-28] MEDS: Multivitamin Tab PO SCH (07:28)
[2021-04-28] MEDS: Polyethylene Glycol 3350 Powder 17 GM Packet PO SCH ×2 (07:28→17:24)
[2021-04-28] MEDS: Calcium Carbonate/Vitamin D3 1500 MG-400 Units Tab PO SCH (07:29)
[2021-04-28] MEDS: Acetaminophen 500 MG Tab PO SCH ×3 (07:29→17:23)
[2021-04-28] MEDS: Cholecalciferol (Vitamin D3) 25 MCG Tab PO SCH (07:29)
[2021-04-28] MEDS: Gabapentin 300 MG Cap PO SCH ×3 (07:30→17:23)
[2021-04-28] MEDS: Famotidine 20 MG Tab PO SCH ×2 (07:30→17:23)
[2021-04-28] MEDS: Ascorbic Acid 500 MG Tab PO SCH (07:30)
[2021-04-28] MEDS: Lidocaine 4% 1 each Patch TOP SCH (08:25)
--- NOTE | 2021-04-28 13:40 | PCM.HP.2 ---
H&P History of Present Illness - General Date of Service: 04/27/21 Admit Problem/Dx: Admission Diagnosis/Problem Admission Diagnosis/Problem Abscess Source of Information: Patient, Old Records History Limitations: Reports: No Limitations - History of Present Illness Initial Comments - Free Text/Narative: Re-admitted to [facility] from [place] after neurosurgical consultation related to abscess post lumbar surgical intervention. Onset of Symptoms: Reports: Gradual Duration of Symptoms: Reports: Week(s): Location: Reports: Back, Lower Extremity, Left, Lower Extremity, Right Quality: Reports: Ache Severity: Moderate Improves with: Reports: None Worsens with: Reports: Movement Context: Reports: Other Associated Symptoms: Reports: No Other Symptoms Bilateral Sacral Pain Score (Numeric/FACES): 5 - Related Data Allergies/Adverse Reactions: Allergies Allergy/AdvReac Type Severity Reaction Status Date / Time codeine Allergy Nausea and Verified 04/07/21 18:02 Vomiting Home Medications: Home Meds Acetaminophen 1,000 mg PO TID 04/07/21 [History] Ascorbic Acid [Vitamin C] 500 mg PO DAILY 04/07/21 [History] Calcium Carb/Vit D3/Minerals [Calcium 600+D Plus Minerals] 1 tab PO DAILY 04/07/21 [History] Cholecalciferol (Vitamin D3) [Vitamin D3] 2 tab PO DAILY 04/07/21 [History] Famotidine 20 mg PO BID 04/07/21 [History] Heparin Sodium,Porcine [Heparin Lock] 3 ml IV ASDIRECTED PRN 04/07/21 [History] Lidocaine 5% [Lidoderm 5%] 3 patch TOP DAILY 04/07/21 [History] Multivit with Iron,Minerals [Complete Senior] 2 tab PO DAILY 04/07/21 [History] Polyethylene Glycol [Polyox Wsr-301] 1 pack PO BID 04/07/21 [History] Sennosides/Docusate Sodium [Senna-S 8.6-50 mg Tablet] 2 tab PO BID PRN 04/07/21 [History] Sodium Chloride 0.9 % (Flush) [Gerson 0.9% NaCl with Cap] 10 ml FLUSH ASDIRECTED PRN 04/07/21 [History] atorvaSTATin [Lipitor] 20 mg PO BEDTIME 04/07/21 [History] hydrOXYzine pamoate [Hydroxyzine Pamoate] 25 mg PO Q6H PRN 04/07/21 [History] oxyCODONE HCl [Oxycodone HCL] 5 mg PO Q4H PRN 04/07/21 [History] oxyCODONE HCl [Oxycodone HCL] 10 mg PO Q4H PRN 04/07/21 [History] Acetaminophen [Acetaminophen Extra Strength] 500 mg PO BID PRN 04/27/21 [History] Alendronate Sodium 70 mg PO Q7D 04/27/21 [History] Gabapentin [Neurontin] 300 mg PO TID 04/27/21 [History] Past Medical History HEENT History: Reports: Impaired Vision Cardiovascular History: Reports: High Cholesterol Respiratory History: Reports: None 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: Musculoskeletal History: Reports: Other (See Below) Other Musculoskeletal History: bilateral bunions, hx of plantar fasciitis of right foot Neurological History: Reports: Migraines Psychiatric History: Reports: Other (See Below) Endocrine/Metabolic History: Reports: Obesity/BMI 30+, Other (See Below) Other Endocrine/Metabolic History: osteopenia to left femoral neck Hematologic History: Reports: None Immunologic History: Reports: None Oncologic (Cancer) History: Reports: None - Infectious Disease History Infectious Disease History: Reports: Other (See Below) Other Infectious Disease History: MSSA infection - Past Surgical History Cardiovascular Surgical History: Reports: None GI Surgical History: Reports: Appendectomy, Colonoscopy Female Surgical History: Reports: Breast Reconstruction, Hysterectomy, Tubal Ligation, Other (See Below) Other Female Surgeries/Procedures: repair of vesico-vaginal fistula Musculoskeletal Surgical History: Reports: Carpal Tunnel, Other (See Below) Other Musculoskeletal Surgeries/Procedures:: hx of lumbar discectomy, bilat carpal tunnel release, bilat rotator cuff repair, back surgery x 2, bilat thumb release, open reduction internal fixation right distal radius Social & Family History - Family History Cardiac: Reports: Heart Valve Replacement, High Cholesterol, Hypertension OBGYN: Reports: Oncologic: Reports: Breast, Colon, Ovarian - Tobacco Use Tobacco Use Status *Q: Never Tobacco User Second Hand Smoke Exposure: No - Caffeine Use Caffeine Use: Reports: Soda Other Caffeine Use: 1 cup a day of coffee - Alcohol Use Days Per Week of Alcohol Use: 1 Number of Drinks Per Day: 1 Total Drinks Per Week: 1 - Recreational Drug Use Recreational Drug Use: No - Living Situation & Occupation Living situation: Reports: , with Family H&P Review of Systems - Review of Systems: Review Of Systems: See Below General: Reports: Weakness HEENT: Reports: No Symptoms Pulmonary: Reports: No Symptoms Cardiovascular: Reports: No Symptoms Gastrointestinal: Reports: No Symptoms Genitourinary: Reports: Incontinence Musculoskeletal: Reports: Back Pain, Muscle Stiffness Skin: Reports: No Symptoms Psychiatric: Reports: No Symptoms Neurological: Reports: Numbness Hematologic/Lymphatic: Reports: No Symptoms Immunologic: Reports: No Symptoms Exam - Exam Exam: See Below - Vital Signs Vital Signs: Last Vital Signs Temp 98.8 F 04/28/21 07:44 Pulse 67 04/28/21 07:44 Resp 14 04/28/21 07:44 BP 127/70 04/28/21 07:44 Pulse Ox 97 04/28/21 07:44 - Exam General: Alert, Oriented, Cooperative HEENT: Conjunctiva Clear, EOMI, Hearing Intact, Mucosa Moist & [place] Neck: Supple Lungs: Clear to Auscultation, Normal Respiratory Effort Cardiovascular: Regular Rate, Regular Rhythm GI/Abdominal Exam: Normal Bowel Sounds Sepsis Event Note - Evaluation Sepsis Screening Result: No Definite Risk - Focused Exam Vital Signs: Vital Signs Temp Pulse Resp BP Pulse Ox 04/28/21 07:44 98.8 F 67 14 127/70 97 - Problem List (1) Discitis of lumbosacral region SNOMED Code(s): 0712878 ICD Code: M46.47 - DISCITIS, UNSPECIFIED, LUMBOSACRAL REGION Status: Acute Current Visit: No Problem Details: Still having significant back pain and needing oral Oxycdone, Naproxsen, and APAP along with Diazepam and Gabpentin. Will work on pain control. Also here for PT/OT to work on strenghtening so she can get back to her own home. Problem List Initiated/Reviewed/Updated: Yes Orders Last 24hrs: Active Orders 24 hr Category Date Time Status Patient Status [ADT] Routine ADT 04/27/21 17:04 Active Ambulate [RC] ASDIRECTED Care 04/27/21 17:04 Active Ambulate [RC] ASDIRECTED Care 04/27/21 17:04 Active Bedrest Bathroom Privileges [RC] ASDIRECTED Care 04/27/21 17:04 Active Communication Order [RC] BID Care 04/27/21 20:00 Active Communication Order [RC] BID Care 04/27/21 20:00 Active Height and Weight [RC] PER UNIT ROUTINE Care 04/27/21 17:07 Active May Shower [RC] ASDIRECTED Care 04/27/21 17:04 Active Up With Assistance [RC] ASDIRECTED Care 04/27/21 17:04 Active VTE/DVT Education [RC] PER UNIT ROUTINE Care 04/27/21 17:04 Active Vital Signs [RC] 08,20 Care 04/27/21 17:04 Active Consult to Occupational Therapy [OT Evaluation and Cons 04/28/21 10:39 Active Treatment] [CONS] Routine PT Evaluation and Treatment [CONS] Routine Cons 04/27/21 17:04 Active Regular Diet [DIET] Diet 04/27/21 Dinner Active ALANINE AMINOTRANSFERASE,ALT [CHEM] Q7D Lab 05/01/21 06:00 Ordered ALANINE AMINOTRANSFERASE,ALT [CHEM] Q7D Lab 05/08/21 06:00 Ordered ALANINE AMINOTRANSFERASE,ALT [CHEM] Q7D Lab 05/15/21 06:00 Ordered ALANINE AMINOTRANSFERASE,ALT [CHEM] Q7D Lab 05/22/21 06:00 Ordered ALANINE AMINOTRANSFERASE,ALT [CHEM] Q7D Lab 05/29/21 06:00 Ordered ALANINE AMINOTRANSFERASE,ALT [CHEM] Q7D Lab 06/05/21 06:00 Ordered ALANINE AMINOTRANSFERASE,ALT [CHEM] Q7D Lab 06/12/21 06:00 Ordered ALANINE AMINOTRANSFERASE,ALT [CHEM] Q7D Lab 06/19/21 06:00 Ordered CBC WITH AUTO DIFF [HEME] Q7D Lab 05/01/21 06:00 Ordered CBC WITH AUTO DIFF [HEME] Q7D Lab 05/08/21 06:00 Ordered CBC WITH AUTO DIFF [HEME] Q7D Lab 05/15/21 06:00 Ordered CBC WITH AUTO DIFF [HEME] Q7D Lab 05/22/21 06:00 Ordered CBC WITH AUTO DIFF [HEME] Q7D Lab 05/29/21 06:00 Ordered CBC WITH AUTO DIFF [HEME] Q7D Lab 06/05/21 06:00 Ordered CBC WITH AUTO DIFF [HEME] Q7D Lab 06/12/21 06:00 Ordered CBC WITH AUTO DIFF [HEME] Q7D Lab 06/19/21 06:00 Ordered CREATININE W/GFR [CHEM] Q7D Lab 05/01/21 06:00 Ordered CREATININE W/GFR [CHEM] Q7D Lab 05/08/21 06:00 Ordered CREATININE W/GFR [CHEM] Q7D Lab 05/15/21 06:00 Ordered CREATININE W/GFR [CHEM] Q7D Lab 05/22/21 06:00 Ordered CREATININE W/GFR [CHEM] Q7D Lab 05/29/21 06:00 Ordered CREATININE W/GFR [CHEM] Q7D Lab 06/05/21 06:00 Ordered CREATININE W/GFR [CHEM] Q7D Lab 06/12/21 06:00 Ordered CREATININE W/GFR [CHEM] Q7D Lab 06/19/21 06:00 Ordered CRP [C-REACTIVE PROTEIN] [CHEM] Q7D Lab 05/01/21 06:00 Ordered CRP [C-REACTIVE PROTEIN] [CHEM] Q7D Lab 05/08/21 06:00 Ordered CRP [C-REACTIVE PROTEIN] [CHEM] Q7D Lab 05/15/21 06:00 Ordered CRP [C-REACTIVE PROTEIN] [CHEM] Q7D Lab 05/22/21 06:00 Ordered CRP [C-REACTIVE PROTEIN] [CHEM] Q7D Lab 05/29/21 06:00 Ordered CRP [C-REACTIVE PROTEIN] [CHEM] Q7D Lab 06/05/21 06:00 Ordered CRP [C-REACTIVE PROTEIN] [CHEM] Q7D Lab 06/12/21 06:00 Ordered CRP [C-REACTIVE PROTEIN] [CHEM] Q7D Lab 06/19/21 06:00 Ordered ESR [SEDIMENTATION RATE AUTO] [HEME] Q7D Lab 05/01/21 06:00 Ordered ESR [SEDIMENTATION RATE AUTO] [HEME] Q7D Lab 05/08/21 06:00 Ordered ESR [SEDIMENTATION RATE AUTO] [HEME] Q7D Lab 05/15/21 06:00 Ordered ESR [SEDIMENTATION RATE AUTO] [HEME] Q7D Lab 05/22/21 06:00 Ordered ESR [SEDIMENTATION RATE AUTO] [HEME] Q7D Lab 05/29/21 06:00 Ordered ESR [SEDIMENTATION RATE AUTO] [HEME] Q7D Lab 06/05/21 06:00 Ordered ESR [SEDIMENTATION RATE AUTO] [HEME] Q7D Lab 06/12/21 06:00 Ordered ESR [SEDIMENTATION RATE AUTO] [HEME] Q7D Lab 06/19/21 06:00 Ordered Acetaminophen [Tylenol Extra Strength] Med 04/27/21 18:00 Active 1,000 mg PO TID Acetaminophen [Tylenol Extra Strength] Med 04/27/21 17:09 Active 500 mg PO BID PRN Alendronate [Fosamax] Med 05/02/21 07:00 Active 70 mg PO Q7D Ascorbic Acid [Vitamin C] Med 04/28/21 08:00 Active 500 mg PO DAILY Calcium Carbonate/Vitamin D3 [Caltrate 600+D 1500 MG- Med 04/28/21 08:00 Active 400 Units] 1 tab PO DAILY Cholecalciferol (Vitamin D3) [Vitamin D3] Med 04/28/21 08:00 Active 50 mcg PO DAILY Docusate Sodium/Sennosides [Senna Plus] Med 04/27/21 17:09 Active 2 tab PO BID PRN Famotidine [Pepcid] Med 04/27/21 18:00 Active 20 mg PO BID Gabapentin [Neurontin] Med 04/27/21 18:00 Active 300 mg PO TID Heparin Sodium [Heparin Lock Flush 100 Units/ML] Med 04/27/21 18:15 Active 3 units FLUSH ASDIRECTED PRN Heparin Sodium [Heparin Lock Flush 100 Units/ML] Med 04/27/21 17:00 Active 300 units FLUSH Q4H Lidocaine 4% [Aspercreme 4%] Med 04/28/21 09:00 Active 3 each TOP DAILY@0900 Multivitamins [Tab-A-Ashley] Med 04/28/21 08:00 Active 2 tab PO DAILY Oxacillin 2 gm Med 04/27/21 16:00 Active Sodium Chloride 0.9% [Normal Saline] 100 ml IV Q4H Remove Patch Med 04/27/21 20:00 Active 1 ea TRDERM BEDTIME Remove Patch Med 04/28/21 20:00 Active 1 ea TRDERM Q24H Sodium Chloride 0.9% [Saline Flush] Med 04/27/21 16:00 Active 10 ml FLUSH Q4H Sodium Chloride 0.9% [Saline Flush] Med 04/27/21 17:00 Active 10 ml FLUSH Q4H Sodium Chloride 0.9% [Saline Flush] Med 04/27/21 18:14 Active 10 ml IV ASDIRECTED PRN atorvaSTATin [Lipitor] Med 04/27/21 20:00 Active 20 mg PO BEDTIME hydrOXYzine pamoate [Vistaril] Med 04/27/21 17:09 Active 25 mg PO Q6H PRN oxyCODONE Med 04/27/21 15:00 Active 10 mg PO Q4H PRN oxyCODONE Med 04/27/21 18:03 Active 5 mg PO Q4H PRN polyethylene glycoL 3350 [MiraLAX] Med 04/27/21 18:15 Active 17 gm PO BID CM Case Management Follow Up [CM] Routine Oth 04/28/21 10:39 Ordered Resuscitation Status Routine Resus Stat 04/27/21 17:04 Ordered Medication Orders Acetaminophen (Acetaminophen 500 Mg Tab) 1,000 mg PO TID [facility] Last Admin: 04/28/21 11:58 Dose: 1,000 mg Documented by: Admin: 04/28/21 07:29 Dose: 1,000 mg Documented by: Admin: 04/27/21 17:58 Dose: 1,000 mg Documented by: AIDA Acetaminophen (Acetaminophen 500 Mg Tab) 500 mg PO BID PRN PRN Reason: Fever Alendronate Sodium (Alendronate 70 Mg Tab) 70 mg PO Q7D [facility] Ascorbic Acid (Ascorbic Acid 500 Mg Tab) 500 mg PO DAILY [facility] Last Admin: 04/28/21 07:30 Dose: 500 mg Documented by: SUNITHA Atorvastatin Calcium (Atorvastatin 10 Mg Tab) 20 mg PO BEDTIME [facility] Last Admin: 04/27/21 19:48 Dose: 20 mg Documented by: YUMIKO Calcium Carbonate (Calcium Carbonate/Vitamin D3 1500 Mg-400 Units Tab) 1 tab PO DAILY [facility] Last Admin: 04/28/21 07:29 Dose: 1 tab Documented by: SUNITHA Cholecalciferol (Cholecalciferol (Vitamin D3) 25 Mcg Tab) 50 mcg PO DAILY [facility] Last Admin: 04/28/21 07:29 Dose: 50 mcg Documented by: SUNITHA Famotidine (Famotidine 20 Mg Tab) 20 mg PO BID [facility] Last Admin: 04/28/21 07:30 Dose: 20 mg Documented by: Admin: 04/27/21 17:57 Dose: 20 mg Documented by: AIDA Gabapentin (Gabapentin 300 Mg Cap) 300 mg PO TID [facility] Last Admin: 04/28/21 11:58 Dose: 300 mg Documented by: Admin: 04/28/21 07:30 Dose: 300 mg Documented by: Admin: 04/27/21 17:57 Dose: 300 mg Documented by: AIDA Heparin Sodium (Porcine) (Heparin Sodium 100 Units/Ml 5 Ml Syringe) 300 units FLUSH Q4H [facility] Last Admin: 04/28/21 12:00 Dose: 300 units Documented by: Admin: 04/28/21 08:25 Dose: 300 units Documented by: Admin: 04/28/21 04:20 Dose: 300 units Documented by: Admin: 04/28/21 00:06 Dose: 300 units Documented by: Admin: 04/27/21 20:53 Dose: 300 units Documented by: Admin: 04/27/21 16:14 Dose: 300 units Documented by: AIDA Heparin Sodium (Porcine) (Heparin Sodium 100 Units/Ml 5 Ml Syringe) 3 units FLUSH ASDIRECTED PRN PRN Reason: PICC Hydroxyzine Pamoate (Hydroxyzine Pamoate 25 Mg Cap) 25 mg PO Q6H PRN PRN Reason: Anxiety Last Admin: 04/27/21 21:08 Dose: 25 mg Documented by: YUMIKO Oxacillin Sodium 2 gm/ Sodium (Chloride) 100 mls @ 100 mls/hr IV Q4H [facility] Last Admin: 04/28/21 11:59 Dose: 100 mls/hr Documented by: Admin: 04/28/21 07:31 Dose: 100 mls/hr Documented by: Admin: 04/28/21 04:19 Dose: 100 mls/hr Documented by: Admin: 04/28/21 00:05 Dose: 100 mls/hr Documented by: Admin: 04/27/21 19:50 Dose: 100 mls/hr Documented by: Admin: 04/27/21 16:13 Dose: 100 mls/hr Documented by: AIDA Lidocaine (Lidocaine 4% 1 Each Patch) 3 each TOP DAILY@0900 [facility] Last Admin: 04/28/21 08:25 Dose: 3 each Documented by: SUNITHA Gamezcellaneous Information (Remove Patch Lidocaine Patches) 1 ea TRDERM BEDTIME [facility] Last Admin: 04/27/21 19:49 Dose: 1 ea Documented by: YUMIKO Gamezcellaneous Information (Remove Patch) 1 ea TRDERM Q24H [facility] Multivitamins/Minerals/Vitamin C (Multivitamin Tab) 2 tab PO DAILY [facility] Last Admin: 04/28/21 07:28 Dose: 2 tab Documented by: SUNITHA Oxycodone HCl (Oxycodone 5 Mg Tab) 10 mg PO Q4H PRN PRN Reason: SEVERE PAIN Last Admin: 04/28/21 07:27 Dose: 10 mg Documented by: Admin: 04/27/21 21:08 Dose: 10 mg Documented by: Admin: 04/27/21 15:03 Dose: 10 mg Documented by: SUNITHA Oxycodone HCl (Oxycodone 5 Mg Tab) 5 mg PO Q4H PRN PRN Reason: PAIN Last Admin: 04/28/21 10:38 Dose: 5 mg Documented by: SUNITHA Polyethylene Glycol (Polyethylene Glycol 3350 Powder 17 Gm Packet) 17 gm PO BID [facility] Last Admin: 04/28/21 07:28 Dose: 17 gm Documented by: Admin: 04/27/21 19:49 Dose: Not Given Documented by: YUMIKO Senna/Docusate Sodium (Docusate Sodium/Sennosides 50-8.6 Mg Tab) 2 tab PO BID PRN PRN Reason: Constipation Sodium Chloride (Sodium Chloride 0.9% 10 Ml Syringe) 10 ml FLUSH Q4H [facility] Last Admin: 04/28/21 12:00 Dose: 10 ml Documented by: Admin: 04/28/21 08:25 Dose: 10 ml Documented by: Admin: 04/28/21 04:19 Dose: 10 ml Documented by: Admin: 04/28/21 00:05 Dose: 10 ml Documented by: Admin: 04/27/21 19:50 Dose: 10 ml Documented by: Admin: 04/27/21 16:15 Dose: 10 ml Documented by: AIDA Sodium Chloride (Sodium Chloride 0.9% 10 Ml Syringe) 10 ml FLUSH Q4H [facility] Last Admin: 04/28/21 12:01 Dose: 10 ml Documented by: Admin: 04/28/21 08:26 Dose: 10 ml Documented by: Admin: 04/28/21 04:19 Dose: 10 ml Documented by: Admin: 04/28/21 00:09 Dose: 10 ml Documented by: Admin: 04/27/21 20:54 Dose: 10 ml Documented by: Admin: 04/27/21 17:59 Dose: 10 ml Documented by: PTACCMARÍA Sodium Chloride (Sodium Chloride 0.9% 10 Ml Syringe) 10 ml IV ASDIRECTED PRN PRN Reason: PICC - Mortality Measure Prognosis:: Good
[2021-04-28] MEDS: atorvaSTATin 10 MG Tab PO SCH (20:53)
[2021-04-28] MEDS: Remove Patch LIDOCAINE PATCHES TRDERM SCH (20:55)
[2021-04-29] MEDS: Oxacillin 2 GM in Sodium Chloride 0.9% 100 ML IV SCH ×6 (00:16→20:24)
[2021-04-29] MEDS: Sodium Chloride 0.9% 10 ML Syringe FLUSH SCH ×12 (00:16→20:24)
[2021-04-29] MEDS: Multivitamin Tab PO SCH (07:43)
[2021-04-29] MEDS: Cholecalciferol (Vitamin D3) 25 MCG Tab PO SCH (07:43)
[2021-04-29] MEDS: Famotidine 20 MG Tab PO SCH ×2 (07:43→17:12)
[2021-04-29] MEDS: Acetaminophen 500 MG Tab PO SCH ×3 (07:44→17:12)
[2021-04-29] MEDS: oxyCODONE 5 MG Tab PO PRN ×3 (07:45→20:23)
[2021-04-29] MEDS: Calcium Carbonate/Vitamin D3 1500 MG-400 Units Tab PO SCH (07:45)
[2021-04-29] MEDS: Gabapentin 300 MG Cap PO SCH ×3 (07:45→17:12)
[2021-04-29] MEDS: Ascorbic Acid 500 MG Tab PO SCH (07:45)
[2021-04-29] MEDS: Polyethylene Glycol 3350 Powder 17 GM Packet PO SCH ×2 (07:46→17:13)
[2021-04-29] MEDS: Lidocaine 4% 1 each Patch TOP SCH (08:55)
[2021-04-29] MEDS: atorvaSTATin 10 MG Tab PO SCH (20:23)
[2021-04-29] MEDS: Remove Patch LIDOCAINE PATCHES TRDERM SCH (20:25)
[2021-04-30] MEDS: Sodium Chloride 0.9% 10 ML Syringe FLUSH SCH ×12 (01:03→20:00)
[2021-04-30] MEDS: Oxacillin 2 GM in Sodium Chloride 0.9% 100 ML IV SCH ×6 (01:04→19:41)
[2021-04-30] MEDS: Acetaminophen 500 MG Tab PO SCH ×3 (08:01→17:15)
[2021-04-30] MEDS: Multivitamin Tab PO SCH (08:02)
[2021-04-30] MEDS: Calcium Carbonate/Vitamin D3 1500 MG-400 Units Tab PO SCH (08:03)
[2021-04-30] MEDS: Cholecalciferol (Vitamin D3) 25 MCG Tab PO SCH (08:03)
[2021-04-30] MEDS: Ascorbic Acid 500 MG Tab PO SCH (08:04)
[2021-04-30] MEDS: oxyCODONE 5 MG Tab PO PRN ×3 (08:04→23:00)
[2021-04-30] MEDS: Famotidine 20 MG Tab PO SCH ×2 (08:04→17:15)
[2021-04-30] MEDS: Gabapentin 300 MG Cap PO SCH ×3 (08:05→17:15)
[2021-04-30] MEDS: Lidocaine 4% 1 each Patch TOP SCH (08:06)
[2021-04-30] MEDS: Polyethylene Glycol 3350 Powder 17 GM Packet PO SCH ×2 (08:37→17:17)
[2021-04-30] MEDS: Remove Patch LIDOCAINE PATCHES TRDERM SCH (19:47)
[2021-04-30] MEDS: atorvaSTATin 10 MG Tab PO SCH (19:48)
[2021-05-01] MEDS: Oxacillin 2 GM in Sodium Chloride 0.9% 100 ML IV SCH ×6 (00:27→21:04)
[2021-05-01] MEDS: Sodium Chloride 0.9% 10 ML Syringe FLUSH SCH ×12 (00:30→21:07)
[2021-05-01] MEDS: Polyethylene Glycol 3350 Powder 17 GM Packet PO SCH ×2 (07:52→17:14)
[2021-05-01] MEDS: Gabapentin 300 MG Cap PO SCH ×3 (07:53→17:11)
[2021-05-01] MEDS: Calcium Carbonate/Vitamin D3 1500 MG-400 Units Tab PO SCH (07:53)
[2021-05-01] MEDS: Cholecalciferol (Vitamin D3) 25 MCG Tab PO SCH (07:53)
[2021-05-01] MEDS: Ascorbic Acid 500 MG Tab PO SCH (07:53)
[2021-05-01] MEDS: oxyCODONE 5 MG Tab PO PRN ×3 (07:53→22:07)
[2021-05-01] MEDS: Multivitamin Tab PO SCH (07:53)
[2021-05-01] MEDS: Famotidine 20 MG Tab PO SCH ×2 (07:54→17:12)
[2021-05-01] MEDS: Acetaminophen 500 MG Tab PO SCH ×3 (07:54→17:12)
[2021-05-01 08:09] LABS: CHLORIDE,CL 109 mmol/L (98-107); SODIUM,NA 144 mmol/L (136-145)
[2021-05-01] MEDS: Lidocaine 4% 1 each Patch TOP SCH (08:10)
[2021-05-01 08:13] LABS: ANION GAP 12.5 meq/L (7-15)
--- OUTSIDE RECORDS SUMMARY | 2021-05-01 16:26 | XMSREPORT ---
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 enhancement of the nerve roots within the thecal sac potentially related to component of underlying radiculitis/arachnoiditis. Multilevel degenerative changes Patient was discussed and examined with Dr. Mesa who agrees with treatment and plan. CARISSA Guerin [place] [facility] Trauma abib, Susanna Ha MD - 04/26/2021 1:01 PM CDT Images from the original note were not included. Hospital Progress Note Patient Name: Na Centeno 04/25/2021 04/26/2021 [facility]: [id number] Date of service:04/26/2021 Interval History: mentions of moderately controlled pain. Seen by neurosurgery and no plan for intervention. Discussed with infectious disease and plan to continue current antibiotic plan. Required Jacobs catheter placement for urinary retention. Will follow blood culture results. Plan for swing bed tomorrow Assessment and Plan: Lumbar epidural abscess: Patient had recent admission and was evaluated by neurosurgery and ID and plan was for 8 weeks of IV antibiotics with cefazolin secondary to MSSA growth and plan to continue same. Patient presented with worsening weakness and numbness of lower extremities. CRP mildly elevated and MRI shows small epidural abscess without any drainable area. Neurosurgery evaluated patient and no plan for intervention. Continue as needed pain medication. Continue antiemetics. Discussed with infectious disease and plan to continue current antibiotics Acute on chronic back pain: Continue scheduled Tylenol, as needed narcotics. Continue Lidoderm patch. Continue gabapentin, Valium as needed. GERD: Continue famotidine DVT prophylaxis: Lovenox Hyperlipidemia: Continue Lipitor Constipation: Continue current bowel regimen. Neuropathy: Continue gabapentin Normocytic anemia: Hemoglobin stable Thrombocytosis: Secondary to underlying acute infection. Urinary retention: Possibly from underlying pain and epidural abscess and continue Jacobs catheter Review of Systems: Constitutional: No fever. No chills. HE: No headache. No red eye or discharge. Neck: No neck swelling. ENT: No ear discharge. No rhinorrhea. No trouble swallowing. Respiratory: No cough. No SOB. Cardiovascular: No chest pain, No palpitation. GI: No abdominal pain. No nausea or vomiting. : No dysuria. No testicular pain. Musc: No arthralgia, = back pain. Skin: No skin rash or pallor. Neuro: No headache. No dizziness. Pshyciatry: No confusion. No mood swings. Endo: No polyuria. No cold intolerance. Physical Exam: Current Vital Signs: Temp: 98.2 F (36.8 C) BP: 137/77 Pulse: 68 O2 Device: Room Air Resp: 18 Pain Ratin (out of 10) Weight: 81.6 kg (180 lb) SpO2: 98 % Vitals Min/Max Last 24 Hours: Vital Signs Min/Max (last 24 hours) Flowsheet Row Name Min Max Temp 97.7 F (36.5 C) 98.3 F (36.8 C) BP: Systolic 133 171 BP: Diastolic 64 100 Pulse 68 75 Resp 16 18 SpO2 (!) 81 % 100 % MAP (mm Hg) 91 mm Hg 114 mm Hg Intake and Output Last 24 Hours: No intake/output data recorded. General: A obese female lying in bed without any distress. HE: Head atraumatic, normocephalic. PERRLA. EOMI. No scleral icterus or conjunctival paleness present. Neck: No lymphadenopathy present ENT: No nasal discharge, sinus tenderness, ear discharge, palatal erythema present. No cyanosis present. Hearing intact. Chest: No chest wall deformity present. Symmetric chest wall movement present. Clear to auscultate bilaterally with vesicular breath sound. No rales or rhonchi present. Heart: Non displaced PMI.No thrill or heave present. Normal rate and regular rhythm S1,S2 present and no murmur, gallop or rub present. Abdomen: Soft, non tender, non distended. No organomegaly appreciated and bowel sounds normoactive in all four quadrants.No inguinal hernia present. Neuro: Alert, awake and oriented to time, place and person.Motor function 5/5 in all four extremities. Bilaterally plantar downgoing . Reflexes 1+. No clonus present. All sensory modalities intact. No cerebellar dysfunction present. Gait intact. Groin numbness Extremity: No gross deformity present. No joint swelling present. Bilateral brachialis and dorsalis pedis pulses intact. No evidence of bipedal edema. Skin: No skin rash present. Medications: Current Facility-Administered Medications Medication Dose Route Frequency ceFAZolin (ANCEF) 2000 mg/20 mL sterile water IV syringe 2,000 mg IV Every 8 hours gabapentin (NEURONTIN) capsule 300 mg 300 mg Oral 3 times a day oxyCODONE (OXY-IR) tablet 5 mg 5 mg Oral Every 6 hours prn diazePAM (VALIUM) tablet 2 mg 2 mg Oral 3 times a day prn lidocaine (LIDODERM) 5% patch 1 patch Apply externally Daily And lidocaine (LIDODERM) 5% patch 1 patch Apply externally Daily And lidocaine (LIDODERM) 5% patch 1 patch Apply externally Daily [START ON 04/27/2021] sodium chloride 0.9% flush (adult) 10 mL 10 mL IV Daily and prn acetaminophen (TYLENOL) tablet 1,000 mg 1,000 mg Oral 3 times a day atorvaSTATin (LIPITOR) tablet 20 mg 20 mg Oral at bedtime famotidine (PEPCID) tablet 20 mg 20 mg Oral Daily hydrOXYzine pamoate (VISTARIL) capsule 25 mg 25 mg Oral Every 6 hours prn oxyCODONE (OXY-IR) tablet 10 mg 10 mg Oral Every 6 hours prn polyethylene glycol (MIRALAX) packet 1 packet 1 packet Oral 2 times a day senna-docusate sodium (SENOKOT-S;PERICOLACE) tablet 2 tablet 2 tablet Oral 2 times a day prn sodium chloride 0.9% flush (adult) 10 mL 10 mL IV 2 times a day and prn nalOXone (NARCAN) injection solution (vial) 0.4 mg 0.4 mg Injection Every 2 minutes prn nalOXone (NARCAN) injection solution (vial) 0.2 mg 0.2 mg Injection Every 2 minutes prn ondansetron (ZOFRAN ODT) dispersible tablet 4 mg 4 mg Oral 4 times a day prn And ondansetron (ZOFRAN) injection solution 4 mg 4 mg IV 4 times a day prn sodium chloride 0.9% IV solution IV Continuous Labs: Labs and imaging reviewed Labs (Last day) 04/26/21319 - 04/26/21319 BLOOD BANK 04/26/21319 BLOOD BANK ABO Type O Rh Type Positive Antibody Screen Negative Expiration Date 04/29/2021 23:59 04/25/212100 - 04/25/212100 CBC 04/25/212100 CBC WBC 4.0-11.0 (K/uL) 8.5 RBC 3.80-5.30 (M/uL) 3.36 Hemoglobin 11.5-15.8 (g/dL) 9.5 Hematocrit 35.0-45.0 (%) 30.9 MCV 80.0-98.0 (fL) 92.0 MCH 25.5-34.0 (pg) 28.3 MCHC 31.5-36.5 (g/dL) 30.7 RDW-CV 11.5-15.5 (%) 14.1 RDW-SD 35.5-50.0 (fl) 47.5 Platelet Count 140-400 (K/uL) 419 MPV 8.5-12.0 (fL) 8.8 04/25/212100 - 04/25/212100 CHEMISTRY 04/25/21210004/25/21210004/25/21210004/25/212100 CHEMISTRY Glucose 70-99 (mg/dL) 93 Sodium 136-145 (meq/L) 139 Potassium 3.5-5.1 (meq/L) 4.4 Chloride 98-109 (meq/L) 106 CO2 20-29 (meq/L) 24 Anion Gap with K 6-20 (meq/L) 13 BUN 6-22 (mg/dL) 13 Creatinine 0.60-1.10 (mg/dL) 0.82 BUN/Creatinine Ratio 10.0-25.0 15.9 Calcium 8.5-10.5 (mg/dL) 9.2 Corrected Calcium 8.5-10.5 (mg/dL) 9.8 Bilirubin Total 0.2-1.2 (mg/dL) 0.2 Alkaline Phosphatase 40-150 (U/L) 98 ALT - SGPT 0-55 (U/L) <6 AST - SGOT 5-34 (U/L) 18 Protein Total 6.0-8.3 (g/dL) 7.2 Albumin 3.2-4.6 (g/dL) 3.3 CRP <5.0 (mg/L) 12.3 Lactic Acid 0.5-2.2 (mmol/L) 1.0 Procalcitonin <0.07 (ng/mL) 0.04 eGFR >=60 (mL/min/1.73m2) 84 eGFR Non- >=60 (mL/min/1.73m2) 69 04/25/212100 - 04/25/212100 DIFFERENTIAL 04/25/212100 DIFFERENTIAL Seg Neut Absolute 1.8-8.0 (K/uL) 3.9 Lymphocytes Absolute 0.8-4.1 (K/uL) 3.5 Monocytes Absolute 0.0-1.0 (K/uL) 0.6 Eosinophils Absolute 0.0-0.7 (K/uL) 0.4 Basophil Absolute 0.0-0.2 (K/uL) 0.1 Immature Granulocyte Absolute 0.00-0.06 (K/uL) 0.06 Neutrophils Percent (%) 46.3 Neutrophils Abs. (Segs and Bands) (/uL) 3,900 Lymphocytes Percent (%) 40.8 Monocytes Percent (%) 6.9 Immature Granulocyte Percent (%) 0.7 Eosinophils Percent (%) 4.7 Basophil Percent (%) 0.6 Nucleated RBC (/100 WBC's) 0 04/26/21 0139 - 04/26/21 0139 GENERAL COAGULATION 04/26/21138 GENERAL COAGULATION Protime 12.0-14.5 (secs) 13.8 INR 0.9-1.1 1.1 04/25/212100 - 04/25/212100 HEMATOLOGY MISC 04/25/212100 HEMATOLOGY MISC ESR 0-29 (mm/Hr) 40 04/25/212100 - 04/25/212100 OTHER 04/25/212100 OTHER Age (Years) 66 Susanna Thompson MD This note was prepared, at least in part, with the help of a voice recognition software. Attempts were made to mitigate any errors in virtual customer assistant. If any remain, they are purely incidental. Bernardino Redding PA-C - 04/26/2021 11:31 AM CDT Neurosurgery Supplemental Consult Note: Patient was seen again this with Dr. Patel for further assessment and examination of Ms. Centeno. After further analyzing the patient's chart it seems that her symptoms have no worsened and are notnew compared to when she was seen by Dr. Mesa for neurosurgery consult on 03/27/21. Neuro exam she is alert and orientated, and in quite a bit of pain. CN 2-12 remain intact. Although her ROM may be slightly limited by pain, her BLE are still displaying 5/5 strengths in all muscle groups. No clonus and negative babinski. Groin numbness is the newest component of her exam. Urinary retention is again a similar finding to her prior admission. - We discussed with patient that at this time we do not think surgical intervention to remove her abscess would improve her symptoms at this time - Neurosurgery feels that continued antibiotic therapy, pain control, and rehab with PT/OT would be the most appropriate intervention at this time - She no longer needs to be NPO, as there is no immediate surgical intervention planned. - OK for DVT chemoprophylaxis - NSR will continue to follow patient at this time - Antibiotic therapy per ID recs DTDavid Tidwell, YASH D - 04/26/2021 12:26 AM CDT 04/26/2021 12:27 AM CDT - Patient was seen by pharmacy. HOME MEDICATIONS have been reconciled and updated to match the patient's home usage. Medications added: -nonw Medications removed: -naproxen -diazepam Medications changed: -alendronate from daily to weekly -gabapentin from 600 mg tid to 300 mg tid Of note, patient has not been getting fentanyl patch administered at the swing- bed facility in [place]. Prior to Admission Medications Prescriptions Last Dose Informant Patient Reported? Taking? Multiple Vitamin (MULTIVITAMIN) tablet 04/26/2021 at AM Self Yes Yes Sig: Take 2 tablets by mouth 1 time per day. acetaminophen (TYLENOL) 500 mg tablet 04/26/2021 at afternoon No Yes Sig: Take 2 tablets (1,000 mg) by mouth 3 times a day acetaminophen (TYLENOL) 500 mg tablet Past Week at Unknown time No Yes Sig: Take 1 tablet (500 mg) by mouth 2 times a day as needed for fever > (indicate temp) (100.5 degrees F) No more then 4000 mg daily of acetaminophen alendronate (FOSAMAX) 10 MG TABS Past Week at Unknown time Self No Yes Sig: Take 1 tablet (10 mg) by mouth 1 time per day Patient taking differently: Take 70 mg by mouth 1 time a week atorvaSTATin (LIPITOR) 20 mg tablet 04/25/2021 at PM No Yes Sig: Take 1 tablet (20 mg) by mouth every night at bedtime calcium-vitamin D 600-200 MG-UNIT TABS tablet 04/26/2021 at AM Self Yes Yes Sig: Take 1 tablet by mouth 1 time per day ceFAZolin (ANCEF;KEFZOL) 2,000 mg in sodium chloride 0.9% 50 mL 04/26/2021 at 1030 No Yes Sig: Administer 2,000 mg intravenously Every 8 hours famotidine (PEPCID) 20 mg tablet 04/26/2021 at AM No Yes Sig: Take 1 tablet (20 mg) by mouth 2 times a day fentaNYL (DURAGESIC) 25 mcg/hr patch Not Taking at Unknown time No No Sig: Apply 1 patch to the skin Every 72 hours Remove old patch prior to placing new patch. Rotate sites where patches are placed. Patient not taking: Reported on 04/26/2021 gabapentin (NEURONTIN) 300 mg capsule 04/26/2021 at afternoon No Yes Sig: Take 2 capsules (600 mg) by mouth 3 times a day Patient taking differently: Take 300 mg by mouth 3 times a day hEParin 100 units/mL injection solution 04/26/2021 at 1030 No Yes Sig: Administer 3 mL (300 Units) intravenously As often as necessary for other (Specify) (heparin 300 units/3 mL IV FLUSH after completion of each antibiotic infusion (after saline flush)) heparin 300 units/3 mL IV FLUSH after completion of each antibiotic infusion (after saline flush) hydrOXYzine pamoate (VISTARIL) 25 mg capsule 04/26/2021 at afternoon No Yes Sig: Take 1 capsule (25 mg) by mouth every 6 hours as needed for anxiety or other (Specify) (pain) lidocaine (LIDODERM) 5% patch 04/26/2021 at AM No Yes Sig: Apply 3 patches topically 1 time per day Patches may be left on for up 12 hours in a 24 hour period. oxyCODONE (OXY-IR) 10 mg tablet 04/26/2021 at afternoon No Yes Sig: Take 1/2 tab for moderate pain and 1 tab for severe pain every 4 hours as needed by mouth. polyethylene glycol (MIRALAX) 17 g packet 04/26/2021 at AM No Yes Sig: Take 1 packet by mouth 2 times a day Dissolve in 4 to 8 ounces of water, juice, soda, coffee, tea. Hold for more then 1 BM per day Patient taking differently: Take 1 packet by mouth 1 time a day as needed Dissolve in 4 to 8 ounces of water, juice, soda, coffee, tea. Hold for more then 1 BM per day senna-docusate sodium (SENOKOT-S;PERICOLACE) 8.6-50 MG tablet Past Month at Unknown time No Yes Sig: Take 2 tablets by mouth 2 times a day as needed for constipation sodium chloride 0.9% prefilled 10 mL syringe 0.9% SOLN 04/26/2021 at 1030 No Yes Sig: Administer 10 mL intravenously As often as necessary for other (Specify) (Flush infusion line before each antibiotic infusion and after each infusion completed) Flush infusion line before each antibiotic infusion and after each infusion completed. Flush line with heparin 300 units/ 3 mL after the last saline flush vitamin C (ASCORBIC ACID) 500 mg chewable tablet 04/26/2021 at AM Self No Yes Sig: Take 1 tablet by mouth 1 time per day. vitamin D3, cholecalciferol, 1000 UNITS tablet 04/26/2021 at AM Self Yes Yes Sig: Take 2,000 Units by mouth 1 time per day. Facility-Administered Medications: None Patient denies use of other inhalers, creams/ointments, eye/ear drops, patches or injectables, OTCs,vitamins and/or herbal products. David Tidwell, PHARM D documented in this encounter H&P Notes Susanna Thompson MD - 04/25/2021 10:25 PM CDT Images from the original note were not included. ADMISSION HISTORY AND PHYSICAL NOTE Patient ID: Na Centeno is a 66yr female. PCP: Sydney Wilder PA-C Attending Provider: Susanna Thompson MD IVETTE: [id number] Chief Complaint Back pain, lower extremity weakness numbness and urinary incontinence HPI This is a 66-year-old white female with past medical history of back surgery, recent epidural abscess on IV antibiotics, neuropathy, hyperlipidemia, osteoporosis Who was sent from swing bed with worsening neurologic symptoms of lower extremity with weakness numbness and urinary incontinence and back pain. Patient had recent hospital admission and found to haveMSSA epidural abscess and was evaluated by neurosurgery and infectious disease and plan was for 8 weeks of IV antibiotics till end of April. No intervention was recommended during her previous admission. Patient was found to have L4-5 discitis with adjacent myositis and epidural abscess on MRI. She had some difficulty with urination and catheter was placed and discharged to swing bed. Since herdischarge she has noticed progressive worsening of numbness from her hips all the way down to her legs and increasing weakness. When her catheter was removed she was unable to sense of bladder or urgeto void and was wearing a diaper with frequent overflow incontinence. She had marked diminished sensation in her rectum on exam at ER. She underwent MRI lumbar spine yesterday showing epidural abscess, moderate to severe spinal canal stenosis at lumbar area and nerve root enhancement and plan was for evaluation by neurosurgery and continuation of IV antibiotics. She otherwise denies any fever, headache, nausea, vomiting, diarrhea, chest pain, shortness of breath, dysuria, weight loss, loss of appetite. During my evaluation blood pressure 151/74, heart rate 72, temperature 97.7, respiration 16, oxygen saturation 90% on room air. Lab work shows WBC 8.5, hemoglobin 9.5 platelet 419, normal CMP, lactic acid 1, CRP 12.3, procalcitonin 0.04, ESR 40. Patient received normal saline at ER. Impression / Plan Active Problems: Back pain Epidural abscess Plan: Lumbar epidural abscess: Patient had recent admission and was evaluated by neurosurgery and ID and plan was for 8 weeks of IV antibiotics with cefazolin secondary to MSSA growth and plan to continue that. Overflow incontinence. Currently has progressive neurologic decline with weakness and numbness of lower extremity and urinary CRP mildly elevated and MRI shows small epidural abscess without any drainable area. Neurosurgery evaluation will be done and if any sample collected will consult ID if new organism growth on cultures. Continue IV fluid. Continue as needed pain medication. Continue antiemetics. Acute on chronic back pain: Continue scheduled Tylenol, as needed narcotics. Continue fentanyl patch and Lidoderm patch. Continue gabapentin, Valium. GERD: Continue famotidine DVT prophylaxis: Lovenox Hyperlipidemia: Continue Lipitor Constipation: Continue current bowel regimen. Neuropathy: Continue gabapentin Normocytic anemia: Hemoglobin stable Thrombocytosis: Secondary to underlying acute infection. 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 Past Surgical History: Procedure Laterality Date APPENDECTOMY BLADDER SURGERY BREAST SURGERY breast reduction CARPAL TUNNEL RELEASE R) and L) COLONOSCOPY N/A 01/15/2019 Procedure: COLONOSCOPY;; Surgeon: Desmond Mckeon MD HARDWARE REMOVAL Right 04/08/2015 Procedure: RIGHT RADIUS HARDWARE REMOVAL ;; Surgeon: Miky Grossman MD LAP HYSTERECTOMY ROBOTIC Bilateral 12/06/2014 Procedure: DAVINCI TOTAL LAPAROSCOPIC HYSTERECTOMY, BILATERAL SALPINGO OOPHORECTOMY, INCIDENTAL CYSTOTOMY REPAIR AND POST OPERATIVE CYSTOSCOPY.;; Surgeon: Ysabel Espinal MD MAMMOPLASTY REDUCTION Bilateral 1989 OPEN REDUCTION Right 03/06/2015 Procedure: OPEN REDUCTION INTERNAL FIXATION RIGHT DISTAL RADIUS AND CARPUS WITH LIGAMENT REPAIR ANDCARPAL TUNNEL RELEASE;; Surgeon: Miky Grossman MD REPAIR VESICO-VAGINAL FISTULA N/A 03/17/2015 Procedure: OPEN REPAIR VESICO VAGINAL FISTULA, CYSTOSCOPY, LEFT RETROGRADE PYELOGRAM, LEFT STENT INSERTION;; Surgeon: Laron Shah MD SHOULDER SURGERY bilateral rotator cuff SPINE SURGERY back surgery x2 SURGERY R) and L) thumb release TUBAL LIGATION Family History Problem Relation Age of Onset Not otherwise listed - Cancer Mother 67 ovarian & uterine Other Mother fibromyalgia Ovarian Cancer Mother 39 Not otherwise listed - Cancer Father colon Hypertension Father High Cholesterol Father Heart Disease Father valve replacement Hypertension Sister Other Sister fibromyalgia Hypertension Brother Kidney Disease Maternal Grandmother Not otherwise listed - Cancer Maternal Grandfather lung and throat Lung Disease Maternal Grandfather Liver Disease Maternal Grandfather Alcohol Abuse Maternal Grandfather Heart Disease Paternal Grandfather Other Daughter Fibromyalgia Not otherwise listed - Cancer Maternal Aunt breast cancer, throat cancer Breast Cancer Maternal Aunt 65 Ovarian Cancer Maternal Aunt in her 50's Not otherwise listed - Cancer Cousin maternal; breast cancer Breast Cancer Cousin 54 Maternal Cousin Ovarian Cancer Cousin in her 40's Heart Disease Son 37 aorta tear No Known Problems Daughter Diabetes Paternal Aunt Diabetes Paternal Uncle Not otherwise listed - Cancer Maternal Uncle cancer; type unknown Not otherwise listed - Cancer Maternal Aunt 18 bone cancer Bladder Cancer Neg Hx Kidney Cancer Neg Hx Nephrolithiasis Neg Hx Prostate Cancer Neg Hx Testicular Cancer Neg Hx Social History Social History Tobacco Use Smoking status: Never Smoker Smokeless tobacco: Never Used Substance Use Topics Alcohol use: Yes Alcohol/week: 1.0 standard drinks Types: 1 Glasses of wine per week Comment: rare/ 0-1 Drug use: No Medications Prior to Admission Medications Prescriptions Last Dose Informant Patient Reported? Taking? Multiple Vitamin (MULTIVITAMIN) tablet Self Yes No Sig: Take 2 tablets by mouth 1 time per day. acetaminophen (TYLENOL) 500 mg tablet No No Sig: Take 2 tablets (1,000 mg) by mouth 3 times a day acetaminophen (TYLENOL) 500 mg tablet No No Sig: Take 1 tablet (500 mg) by mouth 2 times a day as needed for fever > (indicate temp) (100.5 degrees F) No more then 4000 mg daily of acetaminophen alendronate (FOSAMAX) 10 MG TABS Self No No Sig: Take 1 tablet (10 mg) by mouth 1 time per day atorvaSTATin (LIPITOR) 20 mg tablet No No Sig: Take 1 tablet (20 mg) by mouth every night at bedtime calcium-vitamin D 600-200 MG-UNIT TABS tablet Self Yes No Sig: Take 1 tablet by mouth 1 time per day ceFAZolin (ANCEF;KEFZOL) 2,000 mg in sodium chloride 0.9% 50 mL No No Sig: Administer 2,000 mg intravenously Every 8 hours diazePAM (VALIUM) 2 mg tablet No No Sig: Take 1 tablet (2 mg) by mouth 3 times a day famotidine (PEPCID) 20 mg tablet No No Sig: Take 1 tablet (20 mg) by mouth 2 times a day fentaNYL (DURAGESIC) 25 mcg/hr patch No No Sig: Apply 1 patch to the skin Every 72 hours Remove old patch prior to placing new patch. Rotate sites where patches are placed. gabapentin (NEURONTIN) 300 mg capsule No No Sig: Take 2 capsules (600 mg) by mouth 3 times a day hEParin 100 units/mL injection solution No No Sig: Administer 3 mL (300 Units) intravenously As often as necessary for other (Specify) (heparin 300 units/3 mL IV FLUSH after completion of each antibiotic infusion (after saline flush)) heparin 300 units/3 mL IV FLUSH after completion of each antibiotic infusion (after saline flush) hydrOXYzine pamoate (VISTARIL) 25 mg capsule No No Sig: Take 1 capsule (25 mg) by mouth every 6 hours as needed for anxiety or other (Specify) (pain) lidocaine (LIDODERM) 5% patch No No Sig: Apply 3 patches topically 1 time per day Patches may be left on for up 12 hours in a 24 hour period. naproxen (NAPROSYN) 500 mg tablet No No Sig: Take 1 tablet (500 mg) by mouth 2 times a day naproxen (NAPROSYN) 500 mg tablet No No Sig: Take 1 tablet (500 mg) by mouth 1 time when needed for moderate pain or severe pain oxyCODONE (OXY-IR) 10 mg tablet No No Sig: Take 1/2 tab for moderate pain and 1 tab for severe pain every 4 hours as needed by mouth. polyethylene glycol (MIRALAX) 17 g packet No No Sig: Take 1 packet by mouth 2 times a day Dissolve in 4 to 8 ounces of water, juice, soda, coffee, tea. Hold for more then 1 BM per day senna-docusate sodium (SENOKOT-S;PERICOLACE) 8.6-50 MG tablet No No Sig: Take 2 tablets by mouth 2 times a day as needed for constipation sodium chloride 0.9% prefilled 10 mL syringe 0.9% SOLN No No Sig: Administer 10 mL intravenously As often as necessary for other (Specify) (Flush infusion line before each antibiotic infusion and after each infusion completed) Flush infusion line before each antibiotic infusion and after each infusion completed. Flush line with heparin 300 units/ 3 mL after the last saline flush vitamin C (ASCORBIC ACID) 500 mg chewable tablet Self No No Sig: Take 1 tablet by mouth 1 time per day. vitamin D3, cholecalciferol, 1000 UNITS tablet Self Yes No Sig: Take 2,000 Units by mouth 1 time per day. Facility-Administered Medications: None Allergies Allergies Allergen Reactions Codeine Nausea and Vomiting and Diarrhea ROS Review of Systems Constitutional: No fever. No chills. HE: No headache. No red eye or discharge. ENT: No ear discharge. No rhinorrhea. No trouble swallowing. Respiratory: No cough. No SOB. Cardiovascular: No chest pain, No palpitation. GI: No abdominal pain. No nausea or vomiting. : No dysuria. No testicular pain. Positive for bladder incontinence Musc: No arthralgia, + back pain. Skin: No skin rash or pallor. Neuro: No headache. No dizziness. Positive for lower extremity weakness and numbness Pshyciatry: No confusion. No mood swings. Endo: No polyuria. No cold intolerance. Physical Exam BP 155/74 Pulse 72 Temp 97.7 F (36.5 C) Resp 16 SpO2 98%|| General: A healthy female reclining in bed without any distress. HE: Head atraumatic, normocephalic. PERRLA. EOMI. No scleral icterus or conjunctival paleness present. ENT: No nasal discharge, sinus tenderness, ear discharge, palatal erythema present. Chest: No chest wall deformity present. Symmetric chest wall movement present. Clear to auscultate bilaterally with vesicular breath sound. No rales or rhonchi present. Heart: Non displaced PMI.No thrill or heave present. Normal rate and regular rhythm.S1,S2 present and no murmur, gallop or rub present. Abdomen: Soft, non tender, non distended. No organomegaly appreciated and bowel sounds normoactive in all four quadrants.No inguinal hernia present. Neuro: Alert, awake and oriented to time, place and person.Motor function $+5 in all four extremities. Bilaterally plantar downgoing . Reflexes 1+. No clonus present. All sensory modalities intact. No cerebellar dysfunction present. Gait intact. Decreased sensation in lower extremity with decreased sensation in rectum Extremity: No gross deformity present. Bilateral brachialis and dorsalis pedis pulses intact. No evidence of bipedal edema. Skin: No skin rash present. Labs Labs (Last day) 04/25/212100 - 04/25/212100 CBC 04/25/212100 CBC WBC 4.0-11.0 (K/uL) 8.5 RBC 3.80-5.30 (M/uL) 3.36 Hemoglobin 11.5-15.8 (g/dL) 9.5 Hematocrit 35.0-45.0 (%) 30.9 MCV 80.0-98.0 (fL) 92.0 MCH 25.5-34.0 (pg) 28.3 MCHC 31.5-36.5 (g/dL) 30.7 RDW-CV 11.5-15.5 (%) 14.1 RDW-SD 35.5-50.0 (fl) 47.5 Platelet Count 140-400 (K/uL) 419 MPV 8.5-12.0 (fL) 8.8 04/25/212100 - 04/25/212100 CHEMISTRY 04/25/21210004/25/21210004/25/21210004/25/212100 CHEMISTRY Glucose 70-99 (mg/dL) 93 Sodium 136-145 (meq/L) 139 Potassium 3.5-5.1 (meq/L) 4.4 Chloride 98-109 (meq/L) 106 CO2 20-29 (meq/L) 24 Anion Gap with K 6-20 (meq/L) 13 BUN 6-22 (mg/dL) 13 Creatinine 0.60-1.10 (mg/dL) 0.82 BUN/Creatinine Ratio 10.0-25.0 15.9 Calcium 8.5-10.5 (mg/dL) 9.2 Corrected Calcium 8.5-10.5 (mg/dL) 9.8 Bilirubin Total 0.2-1.2 (mg/dL) 0.2 Alkaline Phosphatase 40-150 (U/L) 98 ALT - SGPT 0-55 (U/L) <6 AST - SGOT 5-34 (U/L) 18 Protein Total 6.0-8.3 (g/dL) 7.2 Albumin 3.2-4.6 (g/dL) 3.3 CRP <5.0 (mg/L) 12.3 Lactic Acid 0.5-2.2 (mmol/L) 1.0 Procalcitonin <0.07 (ng/mL) 0.04 eGFR >=60 (mL/min/1.73m2) 84 eGFR Non- >=60 (mL/min/1.73m2) 69 04/25/212100 - 04/25/212100 DIFFERENTIAL 04/25/212100 DIFFERENTIAL Seg Neut Absolute 1.8-8.0 (K/uL) 3.9 Lymphocytes Absolute 0.8-4.1 (K/uL) 3.5 Monocytes Absolute 0.0-1.0 (K/uL) 0.6 Eosinophils Absolute 0.0-0.7 (K/uL) 0.4 Basophil Absolute 0.0-0.2 (K/uL) 0.1 Immature Granulocyte Absolute 0.00-0.06 (K/uL) 0.06 Neutrophils Percent (%) 46.3 Neutrophils Abs. (Segs and Bands) (/uL) 3,900 Lymphocytes Percent (%) 40.8 Monocytes Percent (%) 6.9 Immature Granulocyte Percent (%) 0.7 Eosinophils Percent (%) 4.7 Basophil Percent (%) 0.6 Nucleated RBC (/100 WBC's) 0 04/25/212100 - 04/25/212100 HEMATOLOGY MISC 04/25/212100 HEMATOLOGY MISC ESR 0-29 (mm/Hr) 40 04/25/212100 - 04/25/212100 OTHER 04/25/212100 OTHER Age (Years) 66 Imaging This note was prepared, at least in part, with the help of a voice recognition software. Attempts were made to mitigate any errors in virtual customer assistant. If any remain, they are purely incidental. documented in this encounter Consult Notes Quinton Baron MD - 04/27/2021 10:00 AM CDTAssociated Order(s): CONSULT INFECTIOUS DISEASE Infectious Disease Consult Note Requesting Physician: --Dr Vianca Thompson Reason for consultation: L spine epidural abscess MSSA septicemia. History of present illness: The patient is a 66-year-old female known to me from her previous hospitalization from 03/27 through 04/07 where she was admitted for sepsis, back pain, and an MSSA septicemia. Imaging on MRI dated 03/27without contrast did not reveal any involvement of the lumbar spine. However, in light of her continued pain and fever, repeat MRI with contrast was done on 04/03 showing a peripherally enhancing fluid collection in the epidural space from L3-S1. She was seen by neurosurgery during the hospitalizationand overall they do not feel there were immediate indications for surgical intervention. The patient was discharged on cefazolin. Prior to discharge, the patient did undergo a transesophageal echo on 03/31 which did not show evidence of endocarditis. The patient was seen by me in clinic on 04/19 and at that point she was telling me that she was having urinary incontinence and persistently weak in her lower extremities. She was requiring assistance of a walker in order to ambulate. Her sensation was limited on the lateral portions of her feet. Tothat end, a repeat MRI with contrast was requested and this was ultimately performed on 04/24 where it showed the following findings: Continued epidural enhancement of the lower lumbar region from L3-S1 with tiny pockets of nonenhancing fluid. There was no large drainable collection. There is a moderate amount of central canal narrowing and there was an epidural phlegmon at the area near the thecal sac at L4-5. Furthermore, therewas abnormal enhancement of the nerve roots within that area. The patient was hospitalized and again seen by neurosurgery who at this point did not recommend anysurgical intervention. The patient continues to have some urinary incontinence and continues to have weakness in the lower extremities is that her weakness is essentially the same for neurosurgery evaluation. She is also on narcotics which could be contributing to her urinary incontinence. Otherwise, 12 systems were reviewed and are negative except for what was mentioned above. Past medical history/problem list: Allergies Hyperlipidemia Migraines Osteopenia Urinary tract infections History of vesicovaginal fistula History of bladder surgery Breast reduction surgery Carpal tunnel release Right elbow hardware removal in March 2015 Vesicovaginal fistula repair in February 2015 Bilateral rotator cuff surgery Tubal ligation Family history: Ovarian cancer, hypertension, hyperlipidemia, kidney disease, liver disease, alcohol use, breast cancer, ovarian cancer Social history/risk factors: No known antibiotic intolerances No prior history of tobacco use Does endorse alcohol use No drug use Medications: Current Facility-Administered Medications: ceFAZolin (ANCEF) 2000 mg/20 mL sterile water IV syringe, 2,000 mg, IV, Every 8 hours, Susanna Thompson MD, 2,000 mg at 04/27/21 0944 gabapentin (NEURONTIN) capsule 300 mg, 300 mg, Oral, 3 times a day, Susanna Thompson MD, 300mg at 04/27/21 0803 oxyCODONE (OXY-IR) tablet 5 mg, 5 mg, Oral, Every 6 hours prn, Susanna Thompson MD diazePAM (VALIUM) tablet 2 mg, 2 mg, Oral, 3 times a day prn, Susanna Thompson MD lidocaine (LIDODERM) 5% patch, 1 patch, Apply externally, Daily, 1 patch at 04/27/21803 AND lidocaine (LIDODERM) 5% patch, 1 patch, Apply externally, Daily, 1 patch at 04/27/21802 AND lidocaine (LIDODERM) 5% patch, 1 patch, Apply externally, Daily, Susanna Thompson MD, 1 patch at 04/27/21802 sodium chloride 0.9% flush (adult) 10 mL, 10 mL, IV, Daily and prn, Susanna Thompson MD, 10 mL at 04/27/21803 acetaminophen (TYLENOL) tablet 1,000 mg, 1,000 mg, Oral, 3 times a day, Susanna Thompson MD,1,000 mg at 04/27/21801 atorvaSTATin (LIPITOR) tablet 20 mg, 20 mg, Oral, at bedtime, Susanna Thompson MD, 20 mg at 04/26/211956 famotidine (PEPCID) tablet 20 mg, 20 mg, Oral, Daily, Susanna Thompson MD, 20 mg at hydrOXYzine pamoate (VISTARIL) capsule 25 mg, 25 mg, Oral, Every 6 hours prn, Susanna Thompson MD oxyCODONE (OXY-IR) tablet 10 mg, 10 mg, Oral, Every 6 hours prn, Susanna Thompson MD, 10 mg at 04/27/21808 polyethylene glycol (MIRALAX) packet 1 packet, 1 packet, Oral, 2 times a day, Susanna Thompson MD, 1 packet at 04/27/21802 senna-docusate sodium (SENOKOT-S;PERICOLACE) tablet 2 tablet, 2 tablet, Oral, 2 times a day prn, Susanna Thompson MD sodium chloride 0.9% flush (adult) 10 mL, 10 mL, IV, 2 times a day and prn, Susanna Thompson MD, 10 mL at 04/27/21802 nalOXone (NARCAN) injection solution (vial) 0.4 mg, 0.4 mg, Injection, Every 2 minutes prn, Susanna Thompson MD nalOXone (NARCAN) injection solution (vial) 0.2 mg, 0.2 mg, Injection, Every 2 minutes prn, Susanna Thompson MD ondansetron (ZOFRAN ODT) dispersible tablet 4 mg, 4 mg, Oral, 4 times a day prn AND ondansetron (ZOFRAN) injection solution 4 mg, 4 mg, IV, 4 times a day prn, Susanna Thompson MD, 4 mg at 04/26/21 0426 Vitals: Vitals: 04/27/21 0708 BP: 141/75 Pulse: 67 Resp: 16 Temp: 97.3 F (36.3 C) SpO2: 98% Physical Exam: Calm Nontoxic-appearing Sitting upright in her chair Head atraumatic Neck supple Heart sounds are regular Lungs are clear Abdomen nontender No lower extremity edema Sensation limited in the lateral portions of her legs bilaterally 3-4 out of 5 strength in the lower extremities in the distal muscle groups bilaterally No other hot red or swollen joints No other rash or sign of infection Alert Oriented x3 Pleasant affect without sign of psychosis or delirium Labs: Lab Results Component Value Date GLUCOSE 93 04/25/2021 BUN 13 04/25/2021 CREATSERUM 0.82 04/25/2021 BCRATIO 15.9 04/25/2021 NA 139 04/25/2021 POTASSIUM 4.4 04/25/2021 CL 106 04/25/2021 CO2 24 04/25/2021 ANIONGAP 10 03/10/2015 CA 9.2 04/25/2021 EGFR 69 04/25/2021 EGFRAF 84 04/25/2021 Lab Results Component Value Date WBC 8.5 04/25/2021 NUCRBC 0 04/25/2021 RBC 3.36 (L) 04/25/2021 HEMOGLOBIN 9.5 (L) 04/25/2021 HEMATOCRIT 30.9 (L) 04/25/2021 MCV 92.0 04/25/2021 MCH 28.3 04/25/2021 MCHC 30.7 (L) 04/25/2021 RDW 14.2 04/24/2021 PLTCOUNT 419 (H) 04/25/2021 NEUTROPCT 46.3 04/25/2021 BANDPCT 6.0 04/07/2021 LYMPHSPCT 40.8 04/25/2021 MONOSPCT 6.9 04/25/2021 EOSPCT 4.7 04/25/2021 BASOPHILPCT 0.6 04/25/2021 METAMYELOPCT 1.0 04/06/2021 MYELOCYTEPCT 7.0 04/06/2021 Lab Results Component Value Date CRP 12.3 (H) 04/25/2021 Lab Results Component Value Date ESR 40 (H) 04/25/2021 Radiology: 04/24 MRI reviewed 04/03 MRI reviewed ASSESSMENT: 1. L-spine epidural abscess 2. MSSA septicemia 3. Phlegmon of the L-spine 4. Continued lower extremity weakness 5. Urinary incontinence 66-year-old female who was hospitalized in early March for MSSA septicemia and L-spine epidural abscess. She was not a surgical candidate then nor she now. She was rehospitalized due to worseningweakness and urinary incontinence. Urinary continence could be in part contributed from her narcotic medications. I have counseled her to try to avoid these as much as possible. Neurosurgery has evaluated here and they do not see any immediate need to intervene surgically. At this point, we will continue with medical management alone. Her antibiotics are essentially optimized. We can however switch over to Oxacillin continuous infusion or Oafcillin 2 g IV every 4 hour which ever is most convenient for her skilled facility. I did elementary school counselor the patient in this regard and we were both in agreement and will move forward with this. Otherwise, I will see her again in clinic and at that point we can consider a repeat MRI. RECOMMENDATIONS: Discharged on Oxacillin 2 g IV every 4 hour or 12 g IV every 24 hour continuous infusion Follow-up in ID clinic as planned Thank you for the consult. ID will follow. Please call with questions. Quinton Baron MD Infectious Disease [place], [place] Miguel Patel MD - 04/26/2021 1:32 AM CDTAssociated Order(s): CONSULT NEUROSURGERY Consult Note Assessment/Plan Active Problems: Back pain Epidural abscess Plan:66 yo female with progressive epidural abscess collection and worsening low back pain, LE numbness, groin numbness, and continued urinary retention. Symptoms have been present since last admission in February but seem to be gradually worsening. 1. Admit to inpatient 2. Bladder scan 950cc. Place indwelling catheter. 3. Pain control 4. Possible surgery tomorrow for decompression. Will reassess in morning after pain is controlled.Patient is full strength but groin numbness is new. 5. Keep NPO, hold lovenox Reason for Consult Epidural Abscess HPI/History/ROS This is a 66-year-old white female with past medical history of back surgery (last 7 years prior), recent epidural abscess on IV antibiotics, neuropathy, hyperlipidemia, osteoporosis. Patient had recent hospital admission and found to have MSSA epidural abscess and was evaluated by neurosurgery and infectious disease and plan was for 8 weeks of IV antibiotics till end of April. No intervention was recommended during her previous admission. Patient was found to have L4-5 discitis with adjacent myositis and epidural abscess on MRI. She had some difficulty with urination and catheter was placed and discharged to swing bed. Since her discharge she has noticed progressive worsening of numbness from her hips all the way down to her legs and increasing weakness. When her catheter was removed shewas unable to sense of bladder or urge to void and was wearing a diaper with frequent overflow incontinence. She had marked diminished sensation in her rectum on exam at ER. She underwent MRI lumbar s pine yesterday showing epidural abscess, moderate to severe spinal canal stenosis at lumbar area andnerve root enhancement and plan was for evaluation by neurosurgery and continuation of IV antibiotics. She otherwise denies any fever, headache, nausea, vomiting, diarrhea, chest pain, shortness of breath, dysuria, weight loss, loss of appetite. Last note from Dr. Mesa (03/27/21): Severe LBP at and below belt line laterally, with severe pain focused at bilateral sacroiliac joints. There is severe pain at bilateral trochanteric bursa. She has normal 5/5 strength in the legs, including toes curl (S2). She has some tingling in the back of both thighs and calves, with decreased sensation to pinch in the feet in stocking distribution to ankles. Perineal sensation is normal. She had urinary retention 520 cc after MRI scan today, feeling the catheter pass as an unpleasant sensation. Likely severe back pain, constipation contributing to difficulty voiding, rather than small abscess compressing nerve roots. Today's MRI shows a right L3-L4 dorsal small epidural abscess.There is also paraspinal myositis and inflammation of facets, also contributing to severe LBP, plus 7 days constipation. Current Facility-Administered Medications Medication Dose Route Frequency acetaminophen (TYLENOL) tablet 1,000 mg 1,000 mg Oral 3 times a day atorvaSTATin (LIPITOR) tablet 20 mg 20 mg Oral at bedtime ceFAZolin (ANCEF;KEFZOL) 2,000 mg in sodium chloride 0.9% 50 mL 2,000 mg IV Every 8 hours diazePAM (VALIUM) tablet 2 mg 2 mg Oral 3 times a day famotidine (PEPCID) tablet 20 mg 20 mg Oral 2 times a day fentaNYL patch (DURAGESIC) 25 mcg/hr 25 mcg Transdermal Every 72 hours gabapentin (NEURONTIN) capsule 600 mg 600 mg Oral 3 times a day hydrOXYzine pamoate (VISTARIL) capsule 25 mg 25 mg Oral Every 6 hours prn lidocaine (LIDODERM) 5% patch 3 patch Apply externally daily oxyCODONE (OXY-IR) tablet 10 mg 10 mg Oral Every 6 hours prn polyethylene glycol (MIRALAX) packet 1 packet 1 packet Oral 2 times a day senna-docusate sodium (SENOKOT-S;PERICOLACE) tablet 2 tablet 2 tablet Oral 2 times a day prn sodium chloride 0.9% flush (adult) 10 mL 10 mL IV 2 times a day and prn nalOXone (NARCAN) injection solution (vial) 0.4 mg 0.4 mg Injection Every 2 minutes prn nalOXone (NARCAN) injection solution (vial) 0.2 mg 0.2 mg Injection Every 2 minutes prn ondansetron (ZOFRAN ODT) dispersible tablet 4 mg 4 mg Oral 4 times a day prn And ondansetron (ZOFRAN) injection solution 4 mg 4 mg IV 4 times a day prn sodium chloride 0.9% IV solution IV Continuous Allergies Allergen Reactions Codeine Nausea and Vomiting and Diarrhea Past Medical History: Diagnosis Date Allergy, unspecified not elsewhere classified Bilateral bunions 06/02/2014 Closed fracture of radius 05/09/2015 Dislocation of carpal joint of right wrist 03/06/2015 Elevated blood pressure reading without diagnosis of hypertension Family hx of ovarian malignancy 06/02/2014 Hyperlipidemia Leiomyoma of uterus Low back pain Migraines resolved Osteopenia Plantar fasciitis of right foot 11/20/2016 Primary osteoarthritis of knee 11/14/2015 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-vaginal fistula 01/17/2015 Past Surgical History: Procedure Laterality Date APPENDECTOMY BLADDER SURGERY BREAST SURGERY breast reduction CARPAL TUNNEL RELEASE R) and L) COLONOSCOPY N/A 01/15/2019 Procedure: COLONOSCOPY;; Surgeon: Desmond Mckeon MD HARDWARE REMOVAL Right 04/08/2015 Procedure: RIGHT RADIUS HARDWARE REMOVAL ;; Surgeon: Miky Grossman MD LAP HYSTERECTOMY ROBOTIC Bilateral 12/06/2014 Procedure: DAVINCI TOTAL LAPAROSCOPIC HYSTERECTOMY, BILATERAL SALPINGO OOPHORECTOMY, INCIDENTAL CYSTOTOMY REPAIR AND POST OPERATIVE CYSTOSCOPY.;; Surgeon: Ysabel Espinal MD MAMMOPLASTY REDUCTION Bilateral 1989 OPEN REDUCTION Right 03/06/2015 Procedure: OPEN REDUCTION INTERNAL FIXATION RIGHT DISTAL RADIUS AND CARPUS WITH LIGAMENT REPAIR ANDCARPAL TUNNEL RELEASE;; Surgeon: Miky rGossman MD REPAIR VESICO-VAGINAL FISTULA N/A 03/17/2015 Procedure: OPEN REPAIR VESICO VAGINAL FISTULA, CYSTOSCOPY, LEFT RETROGRADE PYELOGRAM, LEFT STENT INSERTION;; Surgeon: Laron Shah MD SHOULDER SURGERY bilateral rotator cuff SPINE SURGERY back surgery x2 SURGERY R) and L) thumb release TUBAL LIGATION Family History Problem Relation Age of Onset Not otherwise listed - Cancer Mother 67 ovarian & uterine Other Mother fibromyalgia Ovarian Cancer Mother 39 Not otherwise listed - Cancer Father colon Hypertension Father High Cholesterol Father Heart Disease Father valve replacement Hypertension Sister Other Sister fibromyalgia Hypertension Brother Kidney Disease Maternal Grandmother Not otherwise listed - Cancer Maternal Grandfather lung and throat Lung Disease Maternal Grandfather Liver Disease Maternal Grandfather Alcohol Abuse Maternal Grandfather Heart Disease Paternal Grandfather Other Daughter Fibromyalgia Not otherwise listed - Cancer Maternal Aunt breast cancer, throat cancer Breast Cancer Maternal Aunt 65 Ovarian Cancer Maternal Aunt in her 50's Not otherwise listed - Cancer Cousin maternal; breast cancer Breast Cancer Cousin 54 Maternal Cousin Ovarian Cancer Cousin in her 40's Heart Disease Son 37 aorta tear No Known Problems Daughter Diabetes Paternal Aunt Diabetes Paternal Uncle Not otherwise listed - Cancer Maternal Uncle cancer; type unknown Not otherwise listed - Cancer Maternal Aunt 18 bone cancer Bladder Cancer Neg Hx Kidney Cancer Neg Hx Nephrolithiasis Neg Hx Prostate Cancer Neg Hx Testicular Cancer Neg Hx Social History Socioeconomic History Marital status: Spouse name: Eron Number of children: 3 Years of education: 13 Highest education level: Not on file Occupational History 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 Enjoying senior care. Social Determinants of Health Physical Activity: Days of Exercise per Week: Minutes of Exercise per Session: Stress: Feeling of Stress : Social Connections: Frequency of Communication with Friends and Family: Frequency of Social Gatherings with Friends and Family: Attends Sikhism Services: Active Member of Clubs or Organizations: Attends Club or Organization Meetings: Marital Status: Intimate Partner Violence: Fear of Current or Ex-Partner: Emotionally Abused: Physically Abused: Sexually Abused: Financial Resource Strain: Difficulty of Paying Living Expenses: Food Insecurity: Worried About Running Out of Food in the Last Year: Ran Out of Food in the Last Year: Transportation Needs: Lack of Transportation (Medical): Lack of Transportation (Non-Medical): Alcohol Use: Not At Risk Frequency of Alcohol Consumption: Monthly or less Average Number of Drinks: 1 or 2 Frequency of Binge Drinking: Never Review of Systems As Above Physical Exam Current Vital Signs Temp: 97.7 F (36.5 C) BP: 134/76 SpO2: 99 % Resp: 16 Pulse: 69 Pain Ratin Exam: Alter, oriented, in moderate distress CN 2-12 intact Full strength and intact sensation in uppers LE exam pain limited but demonstrates 4/5 in bilateral IP and 5/5 in quad, ham, plantar and dorsiflexion, and EHL. Diminished reflexes throughout. Diminished sensation on backs of legs, calves, and bottom of feet. documented in this encounter ED Notes Sam Mcmullen MD - 04/25/2021 8:00 PM CDT Images from the original note were not included. DIAGNOSIS 1. Epidural abscess 2. Acute bilateral low back pain without sciatica 3. Urinary retention 4. Weakness of both lower extremities 5. Lower extremity numbness ASSESSMENT/PLAN/DECISION MAKING: The patient is alert and with lower extremity numbness, weakness, and bowel/bladder dysfunction. She has an abnormal MRI and known history of epidural abscess currently under treatment. Symptoms and differential diagnoses of back pain are carefully considered. Differential diagnoses include myofasci al back pain, disc herniation, pathologic cord compression syndromes, as well as intra-abdominal andvascular etiologies. Medical records are reviewed including recent hospitalization, transfer records, and MRI. The patient is placed on a curb worker and pulse oximeter and given an intravenous line and IV fluids. The case is discussed with Dr. Patel of Neurosurgery. He will see and evaluate the emergency department but would like the patient admitted to the internal medicine service for medical management and infectious disease consultation. Case was therefore discussed with the hospitalist. The patient i s admitted for further evaluation and treatment with neurosurgery to follow for surgical recommendations. DISPOSITION Data Unavailable Data Unavailable SatApr 25, 2021 8:00 PM CDT FOLLOW UP INFORMATION DISCHARGE MEDS Medication List ASK your doctor about these medications * acetaminophen 500 mg tablet Commonly known as: TYLENOL Take 2 tablets (1,000 mg) by mouth 3 times a day * acetaminophen 500 mg tablet Commonly known as: TYLENOL Take 1 tablet (500 mg) by mouth 2 times a day as needed for fever > (indicate temp) (100.5 degrees F) No more then 4000 mg daily of acetaminophen alendronate 10 MG Tabs Commonly known as: FOSAMAX Take 1 tablet (10 mg) by mouth 1 time per day atorvaSTATin 20 mg tablet Commonly known as: LIPITOR Take 1 tablet (20 mg) by mouth every night at bedtime calcium-vitamin D 600-200 MG-UNIT Tabs tablet ceFAZolin (ANCEF;KEFZOL) 2,000 mg in sodium chloride 0.9% 50 mL Administer 2,000 mg intravenously Every 8 hours diazePAM 2 mg tablet Commonly known as: VALIUM Take 1 tablet (2 mg) by mouth 3 times a day famotidine 20 mg tablet Commonly known as: PEPCID Take 1 tablet (20 mg) by mouth 2 times a day fentaNYL 25 mcg/hr patch Commonly known as: DURAGESIC Apply 1 patch to the skin Every 72 hours Remove old patch prior to placing new patch. Rotate sites where patches are placed. gabapentin 300 mg capsule Commonly known as: NEURONTIN Take 2 capsules (600 mg) by mouth 3 times a day hEParin 100 units/mL injection solution Administer 3 mL (300 Units) intravenously As often as necessary for other (Specify) (heparin 300 units/3 mL IV FLUSH after completion of each antibiotic infusion (after saline flush)) heparin 300 units/3 mL IV FLUSH after completion of each antibiotic infusion (after saline flush) hydrOXYzine pamoate 25 mg capsule Commonly known as: VISTARIL Take 1 capsule (25 mg) by mouth every 6 hours as needed for anxiety or other (Specify) (pain) lidocaine 5% patch Commonly known as: LIDODERM Apply 3 patches topically 1 time per day Patches may be left on for up 12 hours in a 24 hour period. multivitamin tablet * naproxen 500 mg tablet Commonly known as: NAPROSYN Take 1 tablet (500 mg) by mouth 2 times a day * naproxen 500 mg tablet Commonly known as: NAPROSYN Take 1 tablet (500 mg) by mouth 1 time when needed for moderate pain or severe pain oxyCODONE 10 mg tablet Commonly known as: OXY-IR Take 1/2 tab for moderate pain and 1 tab for severe pain every 4 hours as needed by mouth. polyethylene glycol 17 g packet Commonly known as: MIRALAX Take 1 packet by mouth 2 times a day Dissolve in 4 to 8 ounces of water, juice, soda, coffee, tea. Hold for more then 1 BM per day senna-docusate sodium 8.6-50 MG tablet Commonly known as: SENOKOT-S;PERICOLACE Take 2 tablets by mouth 2 times a day as needed for constipation sodium chloride 0.9% prefilled 10 mL syringe 0.9% Soln Administer 10 mL intravenously As often as necessary for other (Specify) (Flush infusion line beforeeach antibiotic infusion and after each infusion completed) Flush infusion line before each antibiotic infusion and after each infusion completed. Flush line with heparin 300 units/ 3 mL after the last saline flush vitamin C 500 mg chewable tablet Commonly known as: ascorbic acid Take 1 tablet by mouth 1 time per day. vitamin D3 (cholecalciferol) 25 mcg (1000 unit) tablet * This list has 4 medication(s) that are the same as other medications prescribed for you. Read thedirections carefully, and ask your doctor or other care provider to review them with you. HPI / History / ROS Chief Complaint Patient presents with Extremity Weakness Pt arrives via EMS. Pt comes from [facility]. Pt states she has had a worsening staph infection for the past 4 weeks. Pt states she is numb from the legs down and has lost control of bladder. HPI HPI The patient is a 66-year-old female who presents to the emergency department via EMS from a [place] swing bed unit. Patient is the primary historian. She notes that she was hospitalized here from March 27 through April 07 for methicillin sensitive staph aureus sepsis. She was also found to haveL4-5 discitis with adjacent myositis and epidural abscess. She was seen and evaluated by neurosurgery during her hospitalization and motor function and sensation found to be intact. She was noted to be having some difficulty with urinary retention and catheter placed. Catheter was present at the time of discharge. She notes that she has transferred to the swing bed unit and since being dischargedhas developed progressive numbness from her hips all the way down through her legs. She has had increasing weakness and difficulty in walking. She states that she is now barely able to get about witha walker. She notes that when the catheter was removed she was unable to sense her bladder or the urge to void. She notes that she has been wearing a diaper with frequent overflow incontinence. She has some but markedly diminished sensation of her rectum and need to defecate. She underwent MRI yesterday showing epidural abscess. Neurosurgery was contacted and it was recommended she be brought tot emergency department. Patient is currently receiving IV antibiotics and has been since discharge. She states that she has not had a fever for some time. She has pain in her lower back that has been persistent. Pain is 5/10 and aching. 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 Past Surgical History: Procedure Laterality Date APPENDECTOMY BLADDER SURGERY BREAST SURGERY breast reduction CARPAL TUNNEL RELEASE R) and L) COLONOSCOPY N/A 01/15/2019 Procedure: COLONOSCOPY;; Surgeon: Desmond Mckeon MD HARDWARE REMOVAL Right 04/08/2015 Procedure: RIGHT RADIUS HARDWARE REMOVAL ;; Surgeon: Miky Grossman MD LAP HYSTERECTOMY ROBOTIC Bilateral 12/06/2014 Procedure: DAVINCI TOTAL LAPAROSCOPIC HYSTERECTOMY, BILATERAL SALPINGO OOPHORECTOMY, INCIDENTAL CYSTOTOMY REPAIR AND POST OPERATIVE CYSTOSCOPY.;; Surgeon: Ysabel Espinal MD MAMMOPLASTY REDUCTION Bilateral 1989 OPEN REDUCTION Right 03/06/2015 Procedure: OPEN REDUCTION INTERNAL FIXATION RIGHT DISTAL RADIUS AND CARPUS WITH LIGAMENT REPAIR ANDCARPAL TUNNEL RELEASE;; Surgeon: Miky Grossman MD REPAIR VESICO-VAGINAL FISTULA N/A 03/17/2015 Procedure: OPEN REPAIR VESICO VAGINAL FISTULA, CYSTOSCOPY, LEFT RETROGRADE PYELOGRAM, LEFT STENT INSERTION;; Surgeon: Laron Shah MD SHOULDER SURGERY bilateral rotator cuff SPINE SURGERY back surgery x2 SURGERY R) and L) thumb release TUBAL LIGATION Family History Problem Relation Age of Onset Not otherwise listed - Cancer Mother 67 ovarian & uterine Other Mother fibromyalgia Ovarian Cancer Mother 39 Not otherwise listed - Cancer Father colon Hypertension Father High Cholesterol Father Heart Disease Father valve replacement Hypertension Sister Other Sister fibromyalgia Hypertension Brother Kidney Disease Maternal Grandmother Not otherwise listed - Cancer Maternal Grandfather lung and throat Lung Disease Maternal Grandfather Liver Disease Maternal Grandfather Alcohol Abuse Maternal Grandfather Heart Disease Paternal Grandfather Other Daughter Fibromyalgia Not otherwise listed - Cancer Maternal Aunt breast cancer, throat cancer Breast Cancer Maternal Aunt 65 Ovarian Cancer Maternal Aunt in her 50's Not otherwise listed - Cancer Cousin maternal; breast cancer Breast Cancer Cousin 54 Maternal Cousin Ovarian Cancer Cousin in her 40's Heart Disease Son 37 aorta tear No Known Problems Daughter Diabetes Paternal Aunt Diabetes Paternal Uncle Not otherwise listed - Cancer Maternal Uncle cancer; type unknown Not otherwise listed - Cancer Maternal Aunt 18 bone cancer Bladder Cancer Neg Hx Kidney Cancer Neg Hx Nephrolithiasis Neg Hx Prostate Cancer Neg Hx Testicular Cancer Neg Hx Social History Socioeconomic History Marital status: Spouse name: Eron Number of children: 3 Years of education: 13 Highest education level: Not on file Occupational History 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 Enjoying senior care. Social Determinants of Health Physical Activity: Days of Exercise per Week: Minutes of Exercise per Session: Stress: Feeling of Stress : Social Connections: Frequency of Communication with Friends and Family: Frequency of Social Gatherings with Friends and Family: Attends Sikhism Services: Active Member of Clubs or Organizations: Attends Club or Organization Meetings: Marital Status: Intimate Partner Violence: Fear of Current or Ex-Partner: Emotionally Abused: Physically Abused: Sexually Abused: Financial Resource Strain: Difficulty of Paying Living Expenses: Food Insecurity: Worried About Running Out of Food in the Last Year: Ran Out of Food in the Last Year: Transportation Needs: Lack of Transportation (Medical): Lack of Transportation (Non-Medical): HOME MEDICATIONS Current Outpatient Medications Medication Sig Note acetaminophen (TYLENOL) 500 mg tablet Take 2 tablets (1,000 mg) by mouth 3 times a day acetaminophen (TYLENOL) 500 mg tablet Take 1 tablet (500 mg) by mouth 2 times a day as needed for fever > (indicate temp) (100.5 degrees F) No more then 4000 mg daily of acetaminophen fentaNYL (DURAGESIC) 25 mcg/hr patch Apply 1 patch to the skin Every 72 hours Remove old patch prior to placing new patch. Rotate sites where patches are placed. oxyCODONE (OXY-IR) 10 mg tablet Take 1/2 tab for moderate pain and 1 tab for severe pain every 4hours as needed by mouth. naproxen (NAPROSYN) 500 mg tablet Take 1 tablet (500 mg) by mouth 2 times a day naproxen (NAPROSYN) 500 mg tablet Take 1 tablet (500 mg) by mouth 1 time when needed for moderate pain or severe pain diazePAM (VALIUM) 2 mg tablet Take 1 tablet (2 mg) by mouth 3 times a day hydrOXYzine pamoate (VISTARIL) 25 mg capsule Take 1 capsule (25 mg) by mouth every 6 hours as needed for anxiety or other (Specify) (pain) gabapentin (NEURONTIN) 300 mg capsule Take 2 capsules (600 mg) by mouth 3 times a day atorvaSTATin (LIPITOR) 20 mg tablet Take 1 tablet (20 mg) by mouth every night at bedtime lidocaine (LIDODERM) 5% patch Apply 3 patches topically 1 time per day Patches may be left on for up 12 hours in a 24 hour period. polyethylene glycol (MIRALAX) 17 g packet Take 1 packet by mouth 2 times a day Dissolve in 4 to 8 ounces of water, juice, soda, coffee, tea. Hold for more then 1 BM per day senna-docusate sodium (SENOKOT-S;PERICOLACE) 8.6-50 MG tablet Take 2 tablets by mouth 2 times a day as needed for constipation famotidine (PEPCID) 20 mg tablet Take 1 tablet (20 mg) by mouth 2 times a day sodium chloride 0.9% prefilled 10 mL syringe 0.9% SOLN Administer 10 mL intravenously As often as necessary for other (Specify) (Flush infusion line before each antibiotic infusion and after each infusion completed) Flush infusion line before each antibiotic infusion and after each infusion completed. Flush line with heparin 300 units/ 3 mL after the last saline flush hEParin 100 units/mL injection solution Administer 3 mL (300 Units) intravenously As often as necessary for other (Specify) (heparin 300 units/3 mL IV FLUSH after completion of each antibiotic infusion (after saline flush)) heparin 300 units/3 mL IV FLUSH after completion of each antibiotic infusion (after saline flush) ceFAZolin (ANCEF;KEFZOL) 2,000 mg in sodium chloride 0.9% 50 mL Administer 2,000 mg intravenously Every 8 hours alendronate (FOSAMAX) 10 MG TABS Take 1 tablet (10 mg) by mouth 1 time per day vitamin C (ASCORBIC ACID) 500 mg chewable tablet Take 1 tablet by mouth 1 time per day. calcium-vitamin D 600-200 MG-UNIT TABS tablet Take 1 tablet by mouth 1 time per day Multiple Vitamin (MULTIVITAMIN) tablet Take 2 tablets by mouth 1 time per day. 10/14/2012: . vitamin D3, cholecalciferol, 1000 UNITS tablet Take 2,000 Units by mouth 1 time per day. ROS Review of Systems Constitutional: Negative for appetite change, chills and fever. HENT: Negative for congestion, rhinorrhea and sore throat. Respiratory: Negative for cough and shortness of breath. Cardiovascular: Negative for chest pain. Gastrointestinal: Negative for abdominal pain, constipation, diarrhea, nausea and vomiting. Genitourinary: Positive for difficulty urinating. Negative for dysuria. Musculoskeletal: Positive for back pain and gait problem. Negative for arthralgias. Skin: Negative for rash. Neurological: Positive for weakness and numbness. Negative for dizziness and headaches. Hematological: Negative for adenopathy. Physical / Results PHYSICAL EXAM ED Triage Vitals [04/25/21 1929] Temp Temp Source Pulse Resp BP SpO2 O2 Flow Rate (L/min) O2 Device 97.7 F (36.5 C) Oral 72 16 155/74 98 % -- -- Physical Exam Vitals reviewed. Constitutional: General: She is not in acute distress. Appearance: She is well-developed. She is not ill-appearing, toxic-appearing or diaphoretic. HENT: Head: Normocephalic and atraumatic. Nose: Nose normal. Mouth/Throat: Mouth: Mucous membranes are moist. Pharynx: Oropharynx is clear. Eyes: General: No scleral icterus. Conjunctiva/sclera: Conjunctivae normal. Pupils: Pupils are equal, round, and reactive to light. Cardiovascular: Rate and Rhythm: Normal rate and regular rhythm. Pulmonary: Effort: Pulmonary effort is normal. No respiratory distress. Breath sounds: Normal breath sounds. No stridor. No wheezing or rales. Abdominal: General: There is no distension. Palpations: Abdomen is soft. There is no mass. Tenderness: There is no abdominal tenderness. There is no guarding or rebound. Musculoskeletal: General: No deformity. Cervical back: Normal range of motion and neck supple. Right lower leg: No edema. Left lower leg: No edema. Skin: General: Skin is warm and dry. Coloration: Skin is not pale. Findings: No rash. Neurological: Mental Status: She is alert and oriented to person, place, and time. Sensory: Sensory deficit present. Motor: Weakness present. No abnormal muscle tone. Coordination: Coordination normal. Psychiatric: Behavior: Behavior normal. Scoring Scales Sarah Coma Scale Score: 15 ED COURSE PROCEDURES Procedures MDM-CODING: MDM Number of Diagnoses or Management Options Acute bilateral low back pain without sciatica: new and requires workup Epidural abscess: new and requires workup Lower extremity numbness: new and requires workup Urinary retention: new and requires workup Weakness of both lower extremities: new and requires workup Diagnosis management comments: The patient is alert and with lower extremity numbness, weakness, andbowel/bladder dysfunction. She has an abnormal MRI and known history of epidural abscess currently under treatment. Symptoms and differential diagnoses of back pain are carefully considered. Differential diagnoses include myofascial back pain, disc herniation, pathologic cord compression syndromes,as well as intra-abdominal and vascular etiologies. Medical records are reviewed including recent hospitalization, transfer records, and MRI. The patient is placed on a curb worker and pulse oximeter and given an intravenous line and IV fluids. The case is discussed with Dr. Patel of Neurosurgery. He will see and evaluate the emergency department but would like the patient admitted to the internal medicine service for medical management and infectious disease consultation. Case was therefore discussed with the hospitalist. The patient i s admitted for further evaluation and treatment with neurosurgery to follow for surgical recommendations. Amount and/or Complexity of Data Reviewed Clinical lab tests: ordered and reviewed (Results for orders placed or performed during the hospitalencounter of 04/25/21 -COMPREHENSIVE METABOLIC PANEL Result Value Ref Range Glucose 93 70 - 99 mg/dL BUN 13 6 - 22 mg/dL Creatinine 0.82 0.60 - 1.10 mg/dL BUN/Creatinine Ratio 15.9 10.0 - 25.0 Sodium 139 136 - 145 meq/L Potassium 4.4 3.5 - 5.1 meq/L Chloride 106 98 - 109 meq/L CO2 24 20 - 29 meq/L Anion Gap with K 13 6 - 20 meq/L Calcium 9.2 8.5 - 10.5 mg/dL Protein Total 7.2 6.0 - 8.3 g/dL Albumin 3.3 3.2 - 4.6 g/dL Alkaline Phosphatase 98 40 - 150 U/L AST - SGOT 18 5 - 34 U/L ALT - SGPT <6 0 - 55 U/L Bilirubin Total 0.2 0.2 - 1.2 mg/dL Corrected Calcium 9.8 8.5 - 10.5 mg/dL Age 66 Years eGFR Non- 69 >=60 mL/min/1.73m2 eGFR 84 >=60 mL/min/1.73m2 -LACTIC ACID REFLEX TO REPEAT Result Value Ref Range Lactic Acid 1.0 0.5 - 2.2 mmol/L -PROCALCITONIN Result Value Ref Range Procalcitonin 0.04 <0.07 ng/mL -ESR Result Value Ref Range ESR 40 (H) 0 - 29 mm/Hr -C-REACTIVE PROTEIN (INFLAMMATION) Result Value Ref Range CRP 12.3 (H) <5.0 mg/L -LAB ONLY-COMPLETE BLOOD COUNT WITH DIFFERENTIAL Result Value Ref Range WBC 8.5 4.0 - 11.0 K/uL RBC 3.36 (L) 3.80 - 5.30 M/uL Hemoglobin 9.5 (L) 11.5 - 15.8 g/dL Hematocrit 30.9 (L) 35.0 - 45.0 % MCV 92.0 80.0 - 98.0 fL MCH 28.3 25.5 - 34.0 pg MCHC 30.7 (L) 31.5 - 36.5 g/dL RDW-CV 14.1 11.5 - 15.5 % RDW-SD 47.5 35.5 - 50.0 fl Platelet Count 419 (H) 140 - 400 K/uL MPV 8.8 8.5 - 12.0 fL Seg Neut Absolute 3.9 1.8 - 8.0 K/uL Lymphocytes Absolute 3.5 0.8 - 4.1 K/uL Monocytes Absolute 0.6 0.0 - 1.0 K/uL Eosinophils Absolute 0.4 0.0 - 0.7 K/uL Basophil Absolute 0.1 0.0 - 0.2 K/uL Immature Granulocyte Absolute 0.06 0.00 - 0.06 K/uL Neutrophils Abs. (Segs and Bands) 3,900 /uL Neutrophils Percent 46.3 % Lymphocytes Percent 40.8 % Monocytes Percent 6.9 % Immature Granulocyte Percent 0.7 % Eosinophils Percent 4.7 % Basophil Percent 0.6 % Nucleated RBC 0 /100 WBC's -PROTIME/INR Result Value Ref Range Protime 13.8 12.0 - 14.5 secs INR 1.1 0.9 - 1.1 ) Decide to obtain previous medical records or to obtain history from someone other than the patient: yes Review and summarize past medical records: yes (Patient Name: NA CENTENO Date of : 1955 Procedure: MRI SPINE LUMBAR WITH AND WITHOUT CONTRAST Date of Service: 04/24/2021 EXAM: MRI SPINE LUMBAR WITH AND WITHOUT CONTRAST INDICATION:ICD-10 R78.81 MSSA bacteremia ICD-10 B95.61 MSSA bacteremia MSSA BACTEREMIA COMPARISON(S):None Available TECHNIQUE: Sagittal T1, T2, and STIR sequences. Axial T1 and T2. FINDINGS: There is multilevel disc space narrowing mild to moderate in severity. There is degenerative-type 2 endplate marrow changes L5-S1 and also at T11-T12. No convincing evidence of discitis. There is however significant fluid signal and abnormal enhancement at the facet joints bilaterally at L4-L5 with effusions. There is also significant abnormal epidural soft tissue enhancement in the adjacent canal with epidural phlegmonous enhancement in spinal canal extending from mid L3 level down through the mid S1. There is abnormal enhancement of the nerve roots may relate to a component of underlying arachnoiditis/radiculitis. At the disk space level of L1-L2, there is no significant spinal stenosis or neural foraminal narrowing. At the disk space level of L2-L3, minor circumferential disc bulging with minimal central canal narrowing. There is mild bilateral facet arthropathy. No focal nerve root impingement At the disk space level of L3-L4, there is circumferential disc bulging, ligamentous hypertrophy, and mild to moderate facet arthropathy. Mild central canal narrowing. There is mild foraminal narrowingon the left and mild to moderate foraminal narrowing on the right with equivocal right L3 nerve root impingement in the neural foramen At the disc space level of L4-L5, there is circumferential disc bulge, ligamentous hypertrophy, and advanced bilateral facet arthropathy. There is moderate to severe central canal narrowing. There is lateral recess narrowing bilaterally with potential impingement of the traversing bilateral L5 nerve ro ots. There is moderate to advanced foraminal stenosis bilaterally with potential compression of the exiting low for nerve roots. Epidural phlegmon in the spinal canal posteriorly can further contributes to the central canal narrowing. At the disk space level of L5-S1, there is minor disc osteophyte ridging with minor central canal narrowing. Minor foraminal narrowing bilaterally. There is epidural phlegmonous changes in the spinal canal fairly circumferential fashion a focal area of relative hypoenhancement right anterior anterior lateral aspect of the canal may be some focal abscess changes. Nonenhancing disc material I think in the differential but felt to be less likely. IMPRESSION: 1. Abnormal epidural enhancement within the canal and the lower lumbar region spanning from about mid L3 down to S1. There are a few tiny pockets of nonenhancing fluid likely related to small pockets of epidural abscess. No large drainable collection. There is abnormal enhancement and effusions at thefacet joints bilaterally at L4-L5 concerning for septic facet arthritis. 2. There is moderate moderate to advanced central canal narrowing at L4-L5 with mild central canal narrowing at several other levels in the lumbar region secondary to underlying degenerative changes. This is compounded by the epidural phlegmonous changes combined to cause high-grade compression of thethecal sac at L4-L5. 3. There is a abnormal enhancement of the nerve roots within the thecal sac potentially related to component of underlying radiculitis/arachnoiditis. 4. Multilevel degenerative changes as outlined above. Finalized by: Toney Salas MD on 04/25/2021 8:27 AM CDT ) Discuss the patient with other providers: yes (Dr. Patel of Neurosurgery HOSPITALIST - The patient's case is dicussed with the admitting hospitalist. [place] portions of history, physical exam, and diagnostic evaluation are discussed. Diagnosis or suspected diagnosis and rationale for admit discussed. ) Risk of Complications, Morbidity, and/or Mortality General comments: ED Medication Administration from 04/25/2021 1923 to 04/26/2021 0348 Date/Time Order Dose Route Action Action by 04/26/2021 0307 ceFAZolin (ANCEF) 2000 mg/20 mL sterile water IV syringe 2,000 mg IV Given Laura Duncan RN 04/25/2021 2312 oxyCODONE (OXY-IR) tablet 10 mg 10 mg Oral Given Merari Perdomo RN 04/25/20212036 sodium chloride 0.9% IV solution 0 mL IV Stopped Merari Perdomo RN 04/25/20212031 sodium chloride 0.9% IV solution IV New Bag Merari Perdomo RN Patient Progress Patient progress: stable DTMerari Perdomo RN - 04/25/2021 7:33 PM CDT Plan of care includes addressing Neurological with attention to extremity weakness. Chief Complaint: Extremity Weakness (Pt arrives via EMS. Pt comes from [facility]. Pt states she has had a worsening staph infection for the past 4 weeks. Pt states she is numb from the legs down and has lost control of bladder. ) documented in this encounter Miscellaneous Notes Clinical Team - Maggie Mckeon RN - 04/27/2021 10:30 AM CDT Nurse report given to MEIR Gamble from [facility]. All questions and concerns addressed. Pt belongings reviewed/returned. Education provided regarding new med, appointments and follow up care following infection. Pt family to transport pt back to [facility]. ccupational Therapy - Cecy Villalobos OTR/Sanna - 04/27/2021 8:51 AM CDT Occupational Therapy Acute Care Evaluation Note Impression/Recommendations Pt continues to function below reported baseline level of independence. Pt requires assist x 1 for ADLs/transfers. Pt continues to present with impairments in strength, activity tolerance, safety, balance, functional transfers/mobility, and ADL/IADL completion. Pt to benefit from continued skilled OT to address areas of limitation. OT recommends low-intensity therapy setting (i.e. ST SNF, TCU, swing bed, etc) when medically stable with continued skilled OT services. Acute OT will continue per POC tomaximize functional outcomes needed for optimal quality of life. During OT session today, neurosurgery came to visit with Pt and also ordered an OTS LSO and lumbar corset (unsure if she will be getting 1 brace or 2?). Pt states neurosurgery staff just felt the bracemay help remind her to keep better spine alignment. The brace/corset was not available during OT session, however OT did initiate providing further education to Pt/spouse on don/doff and utilizing brace with ADLs/transfers for spine protection, also provided handouts (ADLs with back pain and ADLs withdon/doff LSO in sitting). Pt will plan to go to [facility] after she discharges today and diamond picker the brace on her way to the next facility. Encouraged Pt/spouse to ensure that the staff there educate them and don brace for Pt so that Pt/spouse understand how to use since that will be the first time for her to be introduced to a brace since we didn't have one available in therapy session this date and she states she's never used a brace in prior back surgeries or with current medical situation. Pt will benefit from further therapy at swing bed to further train with brace mgmt, AE training, training with ADLs/IADLs. Pt in agreement. Admitting Diagnosis: ICD-10-CM 1. Epidural abscess G06.2 2. Acute bilateral low back pain without sciatica M54.5 3. Urinary retention R33.9 4. Weakness of both lower extremities R29.898 5. 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 Pt to wear "PRN as desires", brace to be removed/applied "as Pt desires" Infection Control: Standard Precautions Patient History Social/Home Environment: Patient lives: with their House: House Steps to enter: Yes- 3 to enter from front door. Level entrance through garage, but then 3 steps up into rest of home as garage is now living room. All other needs on 1 level Home Environment: Bed/Bath on main level: Yes Bathroom Setup: walk in shower with door, grab bar, [id number] Prior Level of Function Independent with: all ADLs/IADLs Assistance needed with: States spouse can assist PRN Comments: Reports spouse is supportive and helpful, but that he's had his own health problems and she wants to be mindful of that and not put too much stress/work on him. Pt concerned about returninghome as she cannot navigate steps yet. Pt states she has continued to struggle with walking and ADLsand wants to continue working with therapies in SB setting to increase her safety, balance and independence with those areas prior to returning home. Adaptive Equipment Available: shower chair, grab bars tub/shower, handicapped- height toilet and front-wheeled walker Present for Eval: Patient and family (spouse present in later part of session) Objective Activities of Daily Living: Feeding: independent in sitting with items in reach Grooming: contact guard assistance in standing at sink. Education on safety/use/positioning of walker at sink. Education on spine protection. Recommend when brushing teeth to spit toothpaste into cup rather than leaning over sink to spit, in order to adhere to spinal precautions. Upper Extremity Dressing: minimal assistance. Educated on style of clothing to wear under brace. Initiated education on general brace mgmt, however unable to fully complete as brace is not present in session. Pt will benefit from OT to perform further training and practice with brace or corset mgmt when she obtains actual device. Lower Extremity Dressing: maximum assistance for don/doff clothing over distal LE's while seated without AE, Pt able to manage clothing from proximal thighs <> waist level in standing and increased time/effort with minimal assistance for safety/balance. Continued training with respiratory technician and sock aid will be beneficial for her. Provided education/training this date on using respiratory technician for other areas as well and bringing device on walker to use in bathroom to reach her pants around her ankles or ifshe stands and pants fall down to her feet, she can use the respiratory technician to access the clothing without bending and keeping proper alignment with spine. Bathing: to be assessed; initiated education/training provided on safety, technique, adaptive equipment options/recommendations and energy conservation techniques. Pt verbalized understanding/agreement. Toileting: maximum assistance for donning clean brief and shorts over distal LE's while seated, minimal assistance for clothing mgmt to waist level in standing. Instruction on safe hand placement withwalker use to manage balance during dynamic standing. stand-by assistance with anterior umberto-care (jacobs recently removed prior to toileting task). Did educate on toileting aid options, provided handout and education on compensatory strategies and body position to perform hygiene cares without AE while still adhering to spinal alignment/precautions. Handout provided. Homemaking: Extra time spent with educating on energy conservation techniques, kitchen safety, home safety, walker safety/using walker to transport ADL items safely and leave hands free to safely hold onto walker handles (I.e. draping clothing over front, attaching bag to carry items, how to place respiratory technician on walker to keep respiratory technician with her to use as needed t/o home, etc). Handouts provided for ECWStechniques. Transfers: Bed: to be assessed Chair: contact guard assistance x 1 with FWW for safety/balance with sit <> stand, stand-pivot transfer, and turning to align self with transfer surface. Instruction on safety and technique provided. Toilet: contact guard assistance x 1 with FWW and R wall-mounted grab bar for safety/balance with sit <> stand and turning to align self with transfer surface. Instruction on safety and technique provided. Tub/Shower: to be assessed; initiated ducation/training provided on safety, technique, adaptive equipment options/recommendations and energy conservation techniques. Functional mobility: contact guard assistance with FWW for safety/balance during dynamic standing/functional tasks and mobility related ADLs. At end of session: patient up in chair, call light and tray table within reach, education provided on use call light and waiting for assistance prior to transferring , RN updated on patient status, family at bedside, RN present at end of session and taking over pt care, safety precautions in place upon OT departure from room and Gripper socks and gait belt donned for all OOB activity. Pain: Reports low-back pain, but manageable during OT tasks this date Vitals: Pt on RA without signs of shortness of breath during OT. SpO2 at rest and with activity >90% Upper Extremity Function: Range of Motion: Right:within functional limits Left: within functional limits Strength: Right: within functional limits Left: within functional limits Endurance: limited Coordination: intact Edema: No Cognition: Orientation: alert. Oriented to: Person, place, time, situation Attention: intact Following Directions: intact Safety Awareness: Fairly intact, but will benefit from continued training with new AE and new techniques to optimize her safety and adhere to spinal precautions Impulsivity: None Visual/Perception: Denies acute changes Glasses: Yes- on t/o session Interdisciplinary Communication: Curriculum Developer/Excavation Laborer, Family/Caregivers and Nurse Meseret Serrano Education Education/Training provided: Role of OT, plan of care, ADLs, transfers/mobility, safety, AE needs,d/c recommendations, goals, handouts (for ADLs with back pain, LSO and ADLs, AE, energy conservation) Learners: Patient and family Readiness: eager Method of Training: verbal, handout, demonstration and hands on demonstration Response: Verbalizes understanding and Demonstrates understanding; Will benefit from continued reinforcement: yes Adaptive Equipment Recommendations Adaptive Equipment Recommended: grab bars by toilet, respiratory technician, sock aid, long-handled shoe horn, long handled sponge, toilet tongs/aid, elastic shoe laces and OT will continue to assess AE needs and will update as necessary Plan to obtain adaptive equipment: To further assess. Assessment/Plan Assessment: Patient demonstrates decreased physical conditioning, decreased independence with ADL/IADL tasks, decreased independence with functional mobility, decreased safety with meal prep and decreased safety judgement/insight into deficits Patient showing a decrease in ADL/transfer performance and will benefit from continued OT. Plan: Patient to be seen 3-5x/week to work toward goals listed below. Treatment plan will consist of Saturday thru Saturday sessions. Goals Patient/Family Stated Goal for Session: agreeable to therapy evaluation Goals to be met by discharge: 1. Patient will be modified independent with all functional transfers with adaptive equipment as needed. 2. Patient will be modified independent with all ADLs/self care skills with adaptive equipment as needed. 3. Pt/family to verbalize understanding of adaptive equipment recommendations PRN. 4. Pt to verbalize understanding of 2 energy conservation techniques to utilize in daily routines tofacilitate ease, safety and functional independence. 5. Pt will tolerate 20-30 minutes of UE AROM strengthening exercises with no shortness of breath, using 2# hand weight to increase functional strength/activity tolerance needed to complete ADLs and functional mobility. Treatment Provided Education/training on proper body mechanics to promote safety with ADLs. Education/training on correct technique and safety with ADLs (such as grooming, dressing, toileting and bathing) as well as transfers (including bed, chair, toilet, tub/shower and car transfers). Education on energy conservation t echniques and how to implement into daily routines. Education on sitting for safety with ADL's/IADL's as warranted (I.e. dressing, bathing, grooming, meal prep, etc). Education on home modifications and safety strategies to reduce fall risk and promote functional safety/independence t/o home setting (i.e. Remove scatter rugs, cords, clear pathways, keep frequently used items between hip <> shoulder height to increase ease/safety with item retrieval, etc). Education and training on adaptive equipment options and recommendations. Pt to benefit from further reinforcement of education/training provided this date. Pt verbalized understanding to all education. Answered all Pt's questions to their satisfaction. Please refer above for further details of ADL session. Charges Treatment/Minutes: Today's Evaluation/Treatment Evaluation Self care/home management: 40 minutes Total for time-based codes: 40 minutes Total treatment time: 55 minutes Evaluation Complexity PMH/Comorbidities that affect Occupational Performance: See PMHx Occupational Profile/Medical and Therapy History: LOW - Brief history relating to presenting problem Patient Assessment: HIGH- 5 or more performance deficits relating to physical, cognitive, psychosocial limitations/restrictions Clinical Decision Making: LOW - Low complexity, limited amount of treatment options, no assessment modification, no comorbidities Evaluation Complexity: Low Therapist Alpha Pager Number: [phone] ase Stephani - Angela Bowser LSW - 04/27/2021 8:21 AM CDT CASE MANAGEMENT / SOCIAL SERVICE FINAL TRANSITION PLAN TRANSITION DATE: 04/27/21 TRANSITION TIME: 1000 INTENDED PAYER SOURCE FOR AGENCY: Medicare TRANSITION DESTINATION: [address] [address] N2N: [phone] Pharm: Transfer 65 SPECIAL TRANSITION DAY INSTRUCTIONS TO NURSE / MD: PLANT OPERATIONS WORKER: Please fax paperwork to above fax number Nursing: please call report at above number before or just as patient leaves. MD: please do Interagency transfer order set, ensure orders for PT, OT, ST(if needed) are included.When doing medication orders, there cannot be any range orders, and indication is needed for all meds. DOES ACCEPTING FACILITY REQUIRE COVID TESTING BEFORE DISCHARGE: Other: not required TRANSITION TRANSPORTATION: Family Car TRANSPORTATION PAYMENT: Not applicable TRANSITION CHOICES OFFERED: Swing Bed DOES THE PATIENT HAVE A PRIMARY CARE PHYSICIAN? Yes Sydney Wilder PA-C PATIENT / SUBSTITUTE DECISION MAKER GOAL UPON TRANSITION: First Choice: Swing Bed PATIENT CHOICE EDUCATION: Not applicable MEDICARE 3 IP MIDNIGHT CRITERIA MET: No: had qualifying 3 IP nights in the last 30 days RESOURCE(S) PROVIDED: Placement DOES PATIENT HAVE CLOTHING TO WEAR AT DISCHARGE? Yes ANTICIPATED MODE OF TRANSPORT TO AND FROM FOLLOW UP APPOINTMENTS: Family Car VERIFIED CORRECT PHARMACY IS ENTERED FOR DISCHARGE: Yes - Pharmacy: . [facility] has in house pharmacy METHOD OF PRESCRIBING MEDICATIONS: Reconcile medications as Patient Transfer ("65 button") TRANSITION ROUNDING COMPLETED WITH THE FOLLOWING: Patient / family Curriculum Developer Discussed in person COMMENTS / PATIENT AND FAMILY RESPONSE TO PLAN: Pt medically stable today. Spoke with Lidya at [facility], she states that since pt had qualifying 3 IP midnights within 30 days she does not need to stay 3 IP nights. Was informed about change in IV abx. Dr. Baron spoke with pharmacy at [facility] and they are able to do oxacillin. They will check on q4hr meds or continuous. Pt to go home with a brace. states that they can diamond picker on the way to the swingbed. CURRENT READMISSION RISK SCORE / HANDOFF: Predictive Risk Score Risk of Unplanned Readmission: 15.3 Handoff given: N/A SIGNED: LEDA Larose Case Management- [address] [place] [address] PH. [phone] Pager: [phone] are Planning - Cheryl Singh RN - 04/27/2021 6:32 AM CDT Problem: PHYSICAL COMFORT Goal: CLIENT SATISFACTION: PAIN MANAGEMENT Description: DEFINITION: Extent of positive perception of nursing care to relieve pain. 1=Not at all satisfied, 2=Somewhat satisfied, 3=Moderately satisfied, 4=Very satisfied, 5=Completely satisfied. Outcome: NOC Rating 4 Flowsheets (Taken 04/27/2021 4829) Plan of care reviewed with: Patient Patient specific goal for the day: Pain control and get some sleep Patient specific goal for the stay: Discharge with adequate pain control Achieve goal for stay: By discharge Patient Progress: Patient's pain well controlled this shift with scheduled medications. Patient sleeping comfortably t/o the night, neuros remain intact, patient A/Ox4. VSS. Clinical Team - Keara Solorio RN - 04/26/2021 10:04 PM CDT [id number] No acute changes this shift Alert and oriented x4 VSS on RA Jacobs in place- draining adequately PRN oxycodone for back pain and schedule tylenol Assist x1 FWW to bathroom; Not out of bed this shift Report to oncoming RN are Planning - Keara Solorio RN - 04/26/2021 10:03 PM CDT Problem: PHYSICAL COMFORT Goal: CLIENT SATISFACTION: PAIN MANAGEMENT Description: DEFINITION: Extent of positive perception of nursing care to relieve pain. 1=Not at all satisfied, 2=Somewhat satisfied, 3=Moderately satisfied, 4=Very satisfied, 5=Completely satisfied. Outcome: NOC Rating 3 Flowsheets (Taken 04/26/20212201) Initial Score: 3 Target Score: 5 Plan of care reviewed with: Patient Patient specific goal for the day: Pt pain will be controlled with PRN/scheduled med, and PT/OT Patient specific goal for the stay: Discharge with adequate pain control Achieve goal for stay: By discharge Patient Progress: Patient rating pain 7-8/10 to her back. PRN oxycodone and scheduled tylenol given.repositioned pt for better comfort. N/T present to [facility]. Continue to monitor pain management and carerounding. are Planning - Maggie Mckeon RN - 04/26/2021 6:08 PM CDT Problem: PHYSICAL COMFORT Goal: CLIENT SATISFACTION: PAIN MANAGEMENT Description: DEFINITION: Extent of positive perception of nursing care to relieve pain. 1=Not at all satisfied, 2=Somewhat satisfied, 3=Moderately satisfied, 4=Very satisfied, 5=Completely satisfied. Outcome: NOC Rating 3 Flowsheets (Taken 04/26/2021 1049) Initial Score: 3 Target Score: 5 Plan of care reviewed with: Patient Patient specific goal for the day: Pt pain will be controlled with PRN/scheduled med, and PT/OT Patient specific goal for the stay: Discharge with adequate pain control Achieve goal for stay: By discharge Note: Pt A&Ox4, VSS, on RA. PRN Roxicodone given throughout shift, with some relief. Repositioning andambulation encouraged. No acute neuro changes noted. PICC PAUL, SL with int ATB. CHG bath completed. Regular diet, appetite good. Transfers with assist x1, FWW. Jacobs in place, good UOP. Jacobs cares completed. LBM 04/25 All need met, rounding completed. Call light and table within reach. Will cont to monitor. ase Mgmt - Angela Bowser LSW - 04/26/2021 1:20 PM CDT CASE MANAGEMENT / SOCIAL SERVICE TRANSITION PLAN - INITIAL ASSESSMENT TRANSITION PLAN: Awaiting Medical Doctor Recommendations for Transition Will Continue to Follow for Support and Progression Towards Final Transition Plan BARRIERS TO TRANSITION: Medical barriers:neuro surg c/s, PT/OT evals, pain mgmt COMMENTS / PATIENT AND FAMILY RESPONSE TO PLAN: Reviewed patient's medical record, Met with pt and at bedside. This CM is familiar with pt. Pt has been at [facility] since 04/07 for IV abx and therapies. Informed pt that she is medically clear to go back tomorrow. Sheis agreeable to this. would like to drive pt there if possible. Spoke with Lidya at [facility], they would like pt to leave around 1000 tomorrow. No screen is needed. Tentative d/c plan: [facility] on 04/27 at 1000 via family car. ADMISSION DX: No admission diagnoses are documented for this encounter. PATIENT STATUS: Inpatient RELEASE OF INFORMATION: Yes -- verbal for: DC planning SOURCES OF INFORMATION (See demographics for contact information): Family: Spouse Medical Doctor Medical Record Patient CURRENT LIVING SITUATION / LEVEL OF ASSISTANCE: Lives in Facility - [facility] Contact: Lidya Phone: [phone] Fax: . [facility]acy: [facility] Requires Some Assistance Four Wheeled Walker COMMUNITY SERVICES: None HEALTHCARE DIRECTIVE: No POWER OF SYNTHETIC DEPARTMENT SUPERVISOR: None FINANCIAL CONCERNS: No Concerns PRIMARY CARE PHYSICIAN: Yes Sydney Wilder PA-C : No IS PATIENT'S ADMISSION ASSOCIATED WITH TIA, ISCHEMIC, OR HEMORRHAGIC STROKE?: No LANGUAGE / COMMUNICATION BARRIERS: No PATIENT / SUBSTITUTE DECISION MAKER GOAL UPON TRANSITION: First Choice: Swing Bed ANTICIPATED NEEDS, TRANSITION CHOICES OFFERED: Swing Bed RESOURCE(S) PROVIDED: nothing needed at this time DOES PATIENT HAVE CLOTHING TO WEAR AT DISCHARGE? Yes ANTICIPATED MODE OF TRANSPORT UPON DISCHARGE: Family Car VERIFIED CORRECT PHARMACY IS ENTERED FOR DISCHARGE: Yes - Pharmacy: .Transfer 65 CURRENT READMISSION RISK SCORE Predictive Risk Score Risk of Unplanned Readmission: 14.7 Please refer to readmission risk assessment flowsheet for further details. SIGNED: LEDA Larose Case Management- [address] [place] [address] PH. [phone] Pager: [phone] Physical Therapy - Tobin Orona PT - 04/26/2021 1:14 PM CDT Physical Therapy Acute Inpatient Initial Evaluation ASSESSMENT/RECOMMENDATIONS Patient is somewhat unsteady ambulating and is unable to negotiate stairs independently. Na would benefit from continued physical therapy at a low intensity setting upon discharge. Activity Prescription with Nursing: With assist of 1 and FWW, walk in baez 3 times per day. At a minimum, up to chair for all meals or 3 times per day. Encourage patient to perform personal cares at sink when able. Encourage walking to bathroom rather than use commode or bedpan. Diagnosis: ICD-10-CM 1. Epidural abscess G06.2 Prescription: Eval and Treat Current medical status: Per chart, patient presents due to back pain, LE numbness and urinary incontinence. Precautions: Activity as tolerated. SUBJECTIVE Social History: Patient lives: With . Home environment: House. Steps: 3 steps to main level. Employment: Retired. Prior Level of Function: Activities of Daily Living: Independent. Mobility: Ambulates without AD normally but is now using a front-wheeled walker. History of falls: None. Home O2: None. Adaptive equipment available: front-wheeled walker Patient Concerns: concerned about steps to gain entry Patient/Family Goals: improve mobility OBJECTIVE Patient seen at bedside. Patient presents with IV. Cognition: Alert and oriented x 4. Pain: 5/10 low back pain. Posture: Unremarkable. Observation: Resting in bed upon PT arrival, no acute distress. Agreeable to PT. Range of Motion: Bilateral lower extremities within functional limits. Refer to Occupational Therapy report for upper extremity range of motion. Strength: Bilateral lower extremities within functional limits. Refer to Occupational Therapy report for upper extremity strength testing. Sensation: Numbness and tingling to bilateral LE. Bed Mobility: Supine to Sit: independent. Sit to Supine: independent Transfers: Sit to/from Stand: CGA. Balance: Static Sitting Balance: Good. Dynamic Sitting Balance: Good. Gait: Ambulates ~ 140 feet x 2 and 200 feet x 1 with front-wheeled walker. Somewhat unsteady but no LOB. No dizziness. Stairs: Ascends/descends 2 stairs with railing and mod assist of one. Education: Patient was educated on physical therapy role, plan of care and goals today through explanation. They accepted teaching and verbalized understanding. Interdisciplinary Communication: Spoke with interdisciplinary team members regarding patient plan ofcare. Today's Treatment Evaluation: Completed Gait trainin minutes Therapeutic exercise: 0 minutes Therapeutic activity: 10 minutes TOTAL TIME-CODED MINUTES: 10 minutes TOTAL TREATMENT TIME: 30 minutes Treatment provided: Physical therapy evaluation. Therapeutic activity consisting of: bed mobility, transfers and ambulation. GOALS Goals to be achieved by discharge. Patient will be aware of equipment recommendations as indicated in note to allow for safe mobility. Patient will be able to negotiate 3 stairs with rail in a step-to pattern with min assistance to progress to safe functional mobility in the home. Patient will demonstrate adequate awareness of fall prevention tactics to reduce risk of falling. PLAN Will continue 3 times per week. Physical Therapy Services: balance training bed mobility training education equipment gait training therapeutic activity therapeutic exercise transfer training Tobin Orona, PT, DPT Board-Certified Clinical Specialist in Geriatric Physical Therapy Certified Exercise Expert for Aging Adults Pager: [phone] [facility] Planning - Cheryl Singh RN - 04/26/2021 7:45 AM CDT Problem: PHYSICAL COMFORT Goal: CLIENT SATISFACTION: PAIN MANAGEMENT Description: DEFINITION: Extent of positive perception of nursing care to relieve pain. 1=Not at all satisfied, 2=Somewhat satisfied, 3=Moderately satisfied, 4=Very satisfied, 5=Completely satisfied. Outcome: NOC Rating 2 Flowsheets (Taken 04/26/2021 0743) Plan of care reviewed with: Patient Patient specific goal for the day: Pain control Patient specific goal for the stay: Discharge with adequate pain control Achieve goal for stay: By discharge Patient Progress: Patient rating pain 9/10 this shift to her back, PRN Dilaudid given per eMAR with good relief. Patient A/Ox4, N/T continues to her BLE. VSS. Clinical Team - Cheryl Singh RN - 04/26/2021 7:22 AM CDT Upon Admission to [facility]. skin assessment completed with Angela Curtis RN. Upon skin assessment including pressure points findings include: Redness to the ankle, skin is otherwise clean, dry, and intact. Plan/Intervention: Routine skin interventions, keep skin CDI, and encourage frequent activity. documented in this encounter Plan of Treatment Date Type Specialty Care Team Description 05/15/2021 Office Visit Infectious Diseases Jessica Baron MD [address] [place] [address] [phone] 12/29/2021 Office Visit Breast Specialty Sienna Barbosa MD [address] [place] [address] [phone] Name Type Priority Associated Diagnoses Date/Ti me CULTURE, BLOOD MICROBIOLOGY REPORT STAT 2020 9:01 PM CDT CULTURE, BLOOD MICROBIOLOGY REPORT STAT 2020 8:38 PM CDT Name Type Priority Associated Diagnoses Order S chedule MRI SPINE LUMBAR WITH Imaging Routine Epidural a bscess Expected: 06/27/2021 AND WITHOUT CONTRAST Spinal epidural absc ess (Approximate), Expires: 2021 documented as of this encounter Implants Implanted Type Area Conference Services Coordinator Device Shelf Model / Identifier Expiration Serial / Date Lot Fallon W 2-0 Orthocord N [id number] Ea - [id number] Ortho Right: [employer] [id number] / Implanted: Qty: 1 on 03/06/2015 by Miky Roth MD at [facility] Other RADIUS / [id number] Plate Acu-Loc Dorsal Std Rt N 70-0056 Ea - [id number] Ortho Right: ACUMED 70- 0056 / Implanted: Qty: 1 on 03/06/2015 by Miky Roth MD at [facility] Other RADIUS / Screw Charles Acum 3.5x12mm N Co-3120 Ea - [id number] Ortho Right: [employer] CO-3120 / Implanted: Qty: 1 on 03/06/2015 by Miky Roth MD at [facility] Other RADIUS / Screw Charles Acum 3.5x14mm N Co-3140 Ea - [id number] Ortho Right: [employer] CO-3140 / Implanted: Qty: 1 on 03/06/2015 by Miky Roth MD at [facility] Other RADIUS / Gdwire St Acum 0.035x6 N Ws-0906st Ea - [id number] Ortho Right: [employer]ED WS- [id number] / Implanted: Qty: 1 on 03/06/2015 by Miky Roth MD at [facility] Other RADIUS / Fallon W 2-0 Orthocord N [id number] Ea - [id number] Ortho Right: [employer] 09/25/[id number] / Implanted: Qty: 1 on 03/06/2015 by Miky Roth MD at [facility] Other RADIUS / [id number] Screw Va Lock Acum 2.3x16mm N [id number] Ea - [id number] Ortho Right: ACUMED [id number] / Implanted: Qty: 2 on 03/06/2015 by iMky Roth MD at [facility] Other RADIUS / Explanted: Qty: 1 on 04/08/2015 by Miky Roth MD at [facility] Description:2.3MM VARIABLE ANGLE SCREW 1 6MM, ACUMED [id number] FROM ACUMED ACU-LOC II DISTAL RADIUS SYSTEM Stnt Uretrl Inlay 6.0fr 24cm N [id number] - [id number] Urology Left: URETER BARD 08/17/2018 [id number] / Implanted: Qty: 1 on 03/17/2015 by Laron Shah MD at [facility] / [id number] Description:Verbally requested and ackno wledged by Dr. Shah. documented as of this encounter Procedures Procedure Name Priority Date/Time Associated Comments Diagnosis TYPE AND SCREEN STAT 04/26/2021 3:20 Results for this AM CDT procedure are i n the results section. PROTIME/INR STAT 04/26/2021 1:39 Results for this AM CDT procedure are i n the results section. LACTIC ACID REFLEX TO STAT 04/25/2021 9:01 Re sults for this REPEAT PM CDT procedure are i n the results section. LAB ONLY-COMPLETE STAT 04/25/2021 9:01 Result s for this BLOOD COUNT WITH PM CDT procedure a re in DIFFERENTIAL the results section. PROCALCITONIN STAT 04/25/2021 9:01 Results fo r this PM CDT procedure are i n the results section. CULTURE, BLOOD STAT 04/25/2021 9:01 PM CDT ESR STAT 04/25/2021 9:01 Results for this PM CDT procedure are i n the results section. C-REACTIVE PROTEIN STAT 04/25/2021 9:01 Resul ts for this (INFLAMMATION) PM CDT procedure are in the results section. COMPREHENSIVE STAT 04/25/2021 9:01 Results fo r this METABOLIC PANEL PM CDT procedure ar e in the results section. LAB ONLY-COMPLETE STAT 04/25/2021 9:01 Result s for this BLOOD COUNT WITH PM CDT procedure a re in DIFFERENTIAL the results section. CULTURE, BLOOD STAT 04/25/2021 8:38 PM CDT documented in this encounter Results TYPE AND SCREEN (04/26/2021 3:20 AM CDT) Pathologist Sig nature ABO Type O [address] BLOOD BANK Rh Type Positive [address] BLOOD BANK Antibody Screen Negative [address] Comment: BLOOD BANK Allogenic Red Cells Available 04/26/21 Expiration Date 04/29/2021 23:[address] BLOOD BANK Specimen Blood - Blood specimen (specimen) Performing Organization Address [facility] e Number [address] BLOOD BANK [address] [place] [id number] PROTIME/INR (04/26/2021 1:39 AM CDT) Pathologist Sig nature Protime 13.8 12.0 - 14.[address] INR 1.1 0.9 - 1.[address] Specimen Blood - Blood specimen (specimen) Narrative Performed At INR Standard Intensity = (2.0 - 3.0) [address] INR Higher Intensity = (2.5 - 3.5) Performing Organization Address [facility] e Number [address] [place] [id number] LAB ONLY-COMPLETE BLOOD COUNT WITH DIFFERENTIAL (04/25/2021 9:01 PM CDT) Pathologist Sig on license of [facility] WBC 8.5 4.0 - 11.0 K/uL [address] RBC 3.36 (L) 3.80 - 5.[address] M/uL Hemoglobin 9.5 (L) 11.5 - 15.[address] g/dL Hematocrit 30.9 (L) 35.0 - 45.0 % [address] MCV 92.0 80.0 - 98.[address] MCH 28.3 25.5 - 34.[address] MCHC 30.7 (L) 31.5 - 36.[address] g/dL RDW-CV 14.1 11.5 - 15.5 % [address] RDW-SD 47.5 35.5 - 50.[address] Platelet Count 419 (H) 140 - 400 K/uL [address] MPV 8.8 8.5 - 12.[address] Seg Neut Absolute 3.9 1.8 - 8.0 K/uL [address] Lymphocytes Absolute 3.5 0.8 - 4.1 K/uL [place] [address] [facility] Monocytes Absolute 0.6 0.0 - 1.0 K/uL [address] Eosinophils Absolute 0.4 0.0 - 0.7 K/uL [place] [address] [facility] Basophil Absolute 0.1 0.0 - 0.2 K/uL [address] Immature Granulocyte 0.06 0.00 - 0.[address] Absolute K/uL Neutrophils Abs. 3,900 /uL [address] (Segs and Bands) Neutrophils Percent 46.3 % [address] Lymphocytes Percent 40.8 % [address] Monocytes Percent 6.9 % [address] Immature Granulocyte 0.7 % [address] Percent Eosinophils Percent 4.7 % [address] Basophil Percent 0.6 % [place] [address] [facility] Nucleated RBC 0 /[address] Specimen Blood - Venous blood specimen (specimen) Performing Organization Address [facility] e Number [address] [place] [phone] C-REACTIVE PROTEIN (INFLAMMATION) (04/25/2021 9:01 PM CDT) Pathologist Sig nature CRP 12.3 (H) <5.0 mg/L [address] Specimen Blood - Venous blood specimen (specimen) Performing Organization Address [facility] e Number [address] [place] [id number] ESR (04/25/2021 9:01 PM CDT) Pathologist Sig nature ESR 40 (H) 0 - 29 mm/Hr [address] Specimen Blood - Venous blood specimen (specimen) Narrative Performed At This result was obtained with an ESR instrument that i s not based [address] on the standard Westergren method. The sensitivity and specificity of this method for various disease states may be different from the standard Westergren m ethod. Performing Organization Address [facility] e Number [address] [place] [address] [place] [address] PROCALCITONIN (04/25/2021 9:01 PM CDT) Pathologist Sig nature Procalcitonin 0.04 <0.07 ng/mL [address] Specimen Blood - Venous blood specimen (specimen) Narrative Performed At Suspected Lower Respiratory Tract Infect ion: [address] 0.1-0.25: Low risk for bacterial infection; Antibiotic s discouraged. > 0.25: Increased likelihood for bacterial infection; Antibiotics encouraged. Suspected Sepsis: 0.1-0.5: Low likelihood for sepsis; Anti biotics discouraged. > 0.5: Increased Likelihood for sepsis; Antibiotics encouraged. > 2.0: High risk of sepsis/septic shock; Antibiotics s trongly encouraged. Decisions on antibiotic use should not be based solely on procalcitonin levels. If antibiotics are administered, repeat procalcitonin testing should be performed every 2-3 da ys to consider early antibiotic cessation. PCT is a dynamic biomarker and most useful when trends are analyzed over time in accompaniment with other clinical data. Performing Organization Address [facility] Phon e Number [address] [place] [address], [place] [address] LACTIC ACID REFLEX TO REPEAT (04/25/2021 9:01 PM CDT) Pathologist Sig on license of [facility] Lactic Acid 1.0 0.5 - 2.2 mmol/L [address] Specimen Blood - Blood specimen (specimen) Performing Organization Address [facility] Phon e Number [address] [place] [phone] COMPREHENSIVE METABOLIC PANEL (04/25/2021 9:01 PM CDT) Pathologist Sig on license of [facility] Glucose 93 70 - 99 mg/dL [address] BUN 13 6 - 22 mg/dL [address] Creatinine 0.82 0.60 - 1.[address] mg/dL BUN/Creatinine Ratio 15.9 10.0 - 25.[address] Sodium 139 136 - 145 meq/L [address] Potassium 4.4 3.5 - 5.1 meq/L [address] Chloride 106 98 - 109 meq/L [address] CO2 24 20 - 29 meq/L [address] Anion Gap with K 13 6 - 20 meq/L [address] Calcium 9.2 8.5 - 10.5 mg/dL [address] Protein Total 7.2 6.0 - 8.3 g/dL [address] Albumin 3.3 3.2 - 4.6 g/dL [address] Alkaline Phosphatase 98 40 - 150 U/L [address] AST - SGOT 18 5 - 34 U/L [address] ALT - SGPT <6 0 - 55 U/L [address] Bilirubin Total 0.2 0.2 - 1.2 mg/dL [address] Corrected Calcium 9.8 8.5 - 10.5 mg/dL [address] Age [address] eGFR Non- 69 >=[address] [place] mL/min/1.73m2 eGFR 84 >=[address] mL/min/1.73m2 Specimen Blood - Venous blood specimen (specimen) Performing Organization Address City/State/ZIP Code Phon e Number [address] [place] [address] documented in this encounter Visit Diagnoses Diagnosis Epidural abscess - Primary Intracranial and intraspinal abscess of unspecified site Acute bilateral low back pain without sc iatica Urinary retention Retention of urine, unspecified Weakness of both lower extremities Lower extremity numbness Disturbance of skin sensation MSSA bacteremia Spinal epidural abscess Intraspinal abscess Back pain Backache, unspecified documented in this encounter Discharge Diagnoses Not on filedocumented in this encounter Administered Medications Medication Order MAR Action Action Date Dose Rate Site acetaminophen (TYLENOL) tablet Given 04/27/2021 8:02 AM CDT 1,0 00 mg 1,000 mg 1,000 mg, Oral, Three times a day, First dose on Sat04/26/21 at 0900, Until Discontinued, Adult patients: Total dose of acetaminophen from all acetaminophen containing products should not exceed 4 grams (4000 mg) per day. Pediatric Patients 0 - 3 months: Maximum of 60 mg/kg/24 hours of acetaminophen. Pediatric Patients older than 3 months: Maximum of 75 mg/kg/24 hours of acetaminophen (Never exceeding 4 grams/day). Given 04/26/2021 7:57 PM CDT 1,000 mg Given 04/26/2021 2:10 PM CDT 1,000 mg atorvaSTATin (LIPITOR) tablet 20 mg Given 04/26/2021 7:57 PM CDT 20 mg 20 mg, Oral, Bedtime, First dose on Sat04/25/21 at 2225, Until Discontinued ceFAZolin (ANCEF) 2000 mg/20 mL sterile Given 04/27/2021 9:44 A M CDT 2,000 mg water IV syringe 2,000 mg, IV, Every eight hours, First dose on Sat04/26/21 at 0200, Until Discontinued, 20 mL, Administer as IV push over 4 minutes. Given 04/27/2021 1:07 AM CDT 2,000 mg Given 04/26/2021 6:20 PM CDT 2,000 mg diazePAM (VALIUM) tablet 2 mg 2 mg, Oral, Three times a day prn, Starting on 03/30 at 0732, Until Discontinued, anxiety, muscle spasm famotidine (PEPCID) tablet 20 mg Given 04/27/2021 8:03 AM CDT 20 mg 20 mg, Oral, Daily, First dose on Sat04/26/21 at 0900, Until Discontinued Given 04/26/2021 8:37 AM CDT 20 mg gabapentin (NEURONTIN) capsule 300 mg Given 04/27/2021 8:03 AM CDT 300 mg 300 mg, Oral, Three times a day, First dose (after last modification) on Sat04/26/21 at 0900, Until Discontinued Given 04/26/2021 7:57 PM CDT 300 mg Given 04/26/2021 2:10 PM CDT 300 mg lidocaine (LIDODERM) 5% patch Applied 04/27/2021 8:04 AM CDT 1 patch 1 patch, Apply externally, Daily, First dose on Sat04/26/21 at 0900, Until Discontinued, Administer over 12 Hours Applied 04/26/2021 8:39 AM CDT 1 patch lidocaine (LIDODERM) 5% patch Applied 04/27/2021 8:03 AM CDT 1 patch 1 patch, Apply externally, Daily, First dose on Sat04/26/21 at 0900, Until Discontinued, Administer over 12 Hours Applied 04/26/2021 8:38 AM CDT 1 patch lidocaine (LIDODERM) 5% patch Applied 04/27/2021 8:03 AM CDT 1 patch 1 patch, Apply externally, Daily, First dose on Sat04/26/21 at 0900, Until Discontinued, Administer over 12 Hours Applied 04/26/2021 8:38 AM CDT 1 patch nalOXone (NARCAN) injection solution (vi al) 0.2 mg 0.2 mg, Injection, Every two minutes prn , Starting on Sat04/25/21 at 2223, Until Discontinued, other (Specify), opioid induced respirat ory depression - PARTIAL reversal, 0.5 mL, PARTIAL REVERSAL/RESPI RATORY DEPRESSION If respiratory rate less than 8/minute - call rapid response and administer (un til respiratory rate increases to 10/minute). Give IV (preferred), IM or S UBQ nalOXone (NARCAN) injection solution (vi al) 0.4 mg 0.4 mg, Injection, Every two minutes prn , Starting on Sat04/25/21 at 2223, Until Discontinued, other (Specify), opioid in duced respiratory arrest - FULL reversal, 1 mL, FULL REVERSAL/RESPIRATORY ARREST If patient is not breathing - call CODE BLUE and administer. Give IV (preferred), IM or SUBQ ondansetron (ZOFRAN ODT) dispersible tab let 4 mg 4 mg, Oral, Four times a day prn, Starting on 04/25 at 2225, Until Discontinued, nausea, vomiting, Use FIRS T for nausea / vomiting. If ineffective after 30 minutes use ondansetron IV ondansetron (ZOFRAN) injection solution 4 mg Given 04/26/2021 4:26 AM CDT 4 mg 4 mg, IV, Four times a day prn, Starting on Sat04/25/21 at 2225, Until Discontinued, nausea, vomiting, 2 mL, Use SECOND for nausea / vomiting. If ineffective after 30 minutes and ondansetron ODT used, call physician for alternative. If preference is to further dilute for IV administration: First draw up patient-specific dose, then dilute to 10 mL with 0.9% sodium chloride. oxyCODONE (OXY-IR) tablet 10 mg Given 04/27/2021 8:09 AM CDT 10 mg 10 mg, Oral, Every six hours prn, Starting on Sat04/25/21 at 2222, Until Discontinued, severe pain Given 04/26/2021 7:57 PM CDT 10 mg Given 04/26/2021 2:10 PM CDT 10 mg oxyCODONE (OXY-IR) tablet 5 mg 5 mg, Oral, Every six hours prn, Starting on Sat at 0731, Until Discontinued, moderate pain polyethylene glycol (MIRALAX) packet 1 Given 04/27/2021 8:03 AM CDT 1 packet packet 1 packet, Oral, Two times a day, First dose on Sat04/26/21 at 0900, Until Discontinued, Dissolve in 8 ounces of water, juice, soda, coffee, tea Do NOT give if patient on thickened liquids. Contact provider for alternative if needed. sodium chloride 0.9% flush (adult) 10 mL Given 04/27/2021 8:03 AM CDT 10 mL 10 mL, IV, Two times a day and prn, First dose on Sat04/26/21 at 0900, Until Discontinued, 10 mL, Flush PIV line as scheduled and as often as necessary before and after meds. Use a push / pause technique when flushing to create turbulence. Given 04/26/2021 10:12 PM CDT 10 mL Given 04/26/2021 8:38 AM CDT 10 mL sodium chloride 0.9% flush (adult) 10 mL Given 04/27/2021 8:04 AM CDT 10 mL 10 mL, IV, Daily and prn, First dose on Sat04/27/21 at 0900, Until Discontinued, 10 mL, Flush unused PICC LINE lumens as scheduled and as often as necessary before and after meds. Use a push / pause technique when flushing to create turbulence. Medication Order MAR Action Action Date Dose Rate Site HYDROmorphone (DILAUDID) Given 04/26/2021 4:15 AM CDT 0.5 mg injection solution (conc: 1 mg/mL) 0.5 mg 0.5 mg, IV, Now, 1 dose, On Sat04/26/21 at 0415, 0.5 mL sodium chloride 0.9% IV solution New Bag 04/25/2021 8:32 PM CDT 150 mL/hr IV, at 150 mL/hr, Now, 1 dose, On Sat04/25/21 at 2025, 1,000 mL sodium chloride 0.9% IV solution New Bag 04/26/2021 3:54 AM CDT 75 mL/hr IV, at 75 mL/hr, Continuous, Starting on Sat04/26/21 at 0030, Until Sat04/26/21 at 1305, 1,000 mL documented in this encounter Active and Recently Administered Medications Times are shown in CDT. Medication Order 04/25/2021 04/26/2021 04/27/2021 acetaminophen (TYLENOL) tablet 1,000 mg 0837 (Given - Provider: Maggie Mckeon RN)1410 (Given - Provider: Maggie Mckeon RN)195 (Given - Provider: Keara Solorio RN) 0802 (Given - Provider: Thom Winkler N)1500 (Due)2100 (Due) 1,000 mg, Oral, Three times a day, First dose on Sat04/26/21 at 0900, Until Discontinued, Adult patients: Total dose of acetaminophen from all acetaminophen containing products should not exceed 4 grams (4000 mg) per day. Pediatric Patients 0 - 3 months: Maximum of 60 mg/kg/24 hours of acetaminophen. Pediatric Patients older than 3 months: Maximum of 75 mg/kg/24 hours of acetaminophen (Never exceeding 4 grams/day). atorvaSTATin (LIPITOR) tablet 20 mg 0555 (Not Given - Provider: Cheryl Singh RN - Reason: Unable to verify administration)1956 (Given - Provider: Keara Solorio RN) 2100 (Due) 20 mg, Oral, Bedtime, First dose on Sat04/25/21 at 2225, Until D iscontinued ceFAZolin (ANCEF) 2000 mg/20 mL sterile water IV syringe 0307 (Given - Provider: Laura Duncan RN)0838 (Given - Provider: Maggie Mckeon, MEIR)1820 (Given - Provider: Maggie Mckeon RN) 0107 (Given - Provider: Cheryl Singh RN)0944 (Given - Provider: Maggie Mckeon, MEIR)1800 (Due) 2,000 mg, IV, Every eight hours, First d ose on Sat04/26/21 at 0200, Until Discontinued, 20 mL, Administer as IV push over 4 minutes. famotidine (PEPCID) tablet 20 mg 0837 (Given - P rovider: Maggie Mckeon RN) 0803 (Given - Provider: Maggie Mckeon RN) 20 mg, Oral, Daily, First dose on Sat04/26/21 at 0900, Until Dis continued gabapentin (NEURONTIN) capsule 300 mg 08 37 (Given - Provider: Maggie Mckeon RN)1410 (Given - Provider: Maggie Mckeon RN)1957 (Given - Provider: Keara Solorio RN) 08 (Given - Provider: Thom Winkler N)1500 (Due)2100 (Due) 300 mg, Oral, Three times a day, First d ose (after last modification) on Sat04/26/21 at 0900, Until Discontinued HYDROmorphone (DILAUDID) injection solution (conc: 1 mg/mL) 0.5 mg (COMPLETED) 0415 (Given - Provider: Cheryl Singh RN) 0.5 mg, IV, Now, 1 dose, On Sat04/26/21 at 0415, 0.5 mL lidocaine (LIDODERM) 5% patch(Linked Group 1) 0839 (Applied - Provider: Maggie Mckeon RN) 011 (Remove - Provider: Cheryl crum RN)08 (Applied - Provider: Maggie Mckeon RN)2003 (Due: Remove - Provider: Maggie Mckeon RN) 1 patch, Apply externally, Daily, First dose on Sat04/26/21 at 0900, Until Discontinued, Administer over 12 Hours lidocaine (LIDODERM) 5% patch(Linked Group 1) 0838 (Applied - Provider: Maggie Mckeon RN - Comment: lower back) 011 (Remove - Provider: Cheryl crum RN)08 (Applied - Provider: Maggie Mckeon RN)2002 (Due: Remove - Provider: Maggie Mckeon RN) 1 patch, Apply externally, Daily, First dose on Sat04/26/21 at 0900, Until Discontinued, Administer over 12 Hours lidocaine (LIDODERM) 5% patch(Linked Group 1) 0838 (Applied - Provider: Maggie Mckeon RN - Comment: lower back) 011 (Remove - Provider: Cheryl crum RN)08 (Applied - Provider: Maggie Mckeon RN)2002 (Due: Remove - Provider: Maggie Mckeon RN) 1 patch, Apply externally, Daily, First dose on Sat04/26/21 at 0900, Until Discontinued, Administer over 12 Hours miscellaneous injectable medication MISC 12 g 1025 (Due) 12 g, IV, Now, 1 dose, On Sat04/27/21 at 1025, Oxacillin 12g per day IV continuous infusion -OR- 2g IV Q4h polyethylene glycol (MIRALAX) packet 1 packet 0839 (Not Given - Provider: Maggie Mckeon RN - Reason: NPO)2019 (Refused - Provider: Keara Solorio, MEIR) 802 (Given - Provider: Maggie Mckeon RN)2099 (Due) 1 packet, Oral, Two times a day, First d ose on Sat04/26/21 at 0900, Until Discontinued, Dissolve in 8 ounces of water, juice, soda, coffee, tea Do NOT give if patient on thickened liquids. Contact provider for alternative if needed. sodium chloride 0.9% flush (adult) 10 mL 0838 (Given - Provider: Maggie Mckeon RN)2211 (Given - Provider: Keara Solorio, MEIR) 802 (Given - Provider: Maggie Mckeon RN)2100 (Due) 10 mL, IV, Two times a day and prn, Firs t dose on Sat04/26/21 at 0900, Until Discontinued, 10 mL, Flush PIV line as scheduled and as often as necessary before and after meds. Use a push / pause technique when flushing to create turbulence. sodium chloride 0.9% flush (adult) 10 mL 08 (Given - Provider: Maggie Mcekon RN) 10 mL, IV, Daily and prn, First dose on Sat04/27/21 at 0900, Until Discontinued, 10 mL, Flush unused PICC LINE lumens as scheduled and as often as necessary before and after meds. Use a push / pause technique when flushing to create turbulence. sodium chloride 0.9% IV solution (COMPLETED) 2031 (New Bag - Provider: Merari Perdomo RN)2036 (Stopped - Provider: Merari Perdomo RN) IV, at 150 mL/hr, Now, 1 dose, On Sat04/25/21 at 2025, 1,000 mL Medication Order 04/25/2021 04/26/2021 04/27/2021 sodium chloride 0.9% IV solution (CANCELED) 0354 (New Bag - Provider: Cheryl Singh, RN) IV, at 75 mL/hr, Continuous, Starting on Sat04/26/21 at 0030, Until Sat04/26/21 at 1305, 1,000 mL Medication Order 04/25/2021 04/26/2021 04/27/2021 diazePAM (VALIUM) tablet 2 mg 2 mg, Oral, Three times a day prn, Start ing on Sat04/26/21 at 0732, Until Discontinued, anxiety, muscle spasm hydrOXYzine pamoate (VISTARIL) capsule 25 mg 25 mg, Oral, Every six hours prn, Starti ng on Sat04/25/21 at 2222, Until Discontinued, anxiety, other (Specify), pain nalOXone (NARCAN) injection solution (vial) 0.2 mg 0.2 mg, Injection, Every two minutes prn , Starting on Sat04/25/21 at 2223, Until Discontinued, other (Specify), opioid induced respiratory depression - PARTIAL reversal, 0.5 mL, PARTIAL REVERSAL/RESPIRA TORY DEPRESSION If respiratory rate less than 8/minute - call rapid response and administer (until respiratory rate increases to 10/minute). Give IV (preferred), IM or SUBQ nalOXone (NARCAN) injection solution (vial) 0.4 mg 0.4 mg, Injection, Every two minutes prn , Starting on Sat04/25/21 at 2223, Until Discontinued, other (Specify), opioid induced respiratory arrest - FULL reversal, 1 mL, FULL REVERSAL/RESPIRATORY ARREST If patient is not breathing - call CODE BLUE and administer. Give IV (preferred), IM or SUBQ ondansetron (ZOFRAN ODT) dispersible tablet 4 mg(Linked Group 2) 4 mg, Oral, Four times a day prn, Starti ng on Sat04/25/21 at 2225, Until Discontinued, nausea, vomiting, Use FIRST for nausea / vomiting. If ineffective after 30 minutes use ondansetron IV ondansetron (ZOFRAN) injection solution 4 mg(Linked Group 2) 0426 (Given - Provider: Cheryl Singh RN) 4 mg, IV, Four times a day prn, Starting on Sat04/25/21 at 2225, Until Discontinued, nausea, vomiting, 2 mL, Use SECOND for nausea / vomiting. If ineffective after 30 minutes and ondansetron ODT used, call physician for alternative. If prefe rence is to further dilute for IV administration: First draw up patient-specific dose, then dilute to 10 mL with 0.9% sodium chloride. oxyCODONE (OXY-IR) tablet 10 mg 2312 (Given - Provider: Raquel Perdomo RN) 0837 (Given - Provider: Maggie Mckeon, MEIR)1410 (Given - Provider: Maggie Mckeon, RN)1957 (Given - Provider: Cheryl Singh RN) 0107 (Not Given - Provider: Cheryl Singh RN - Reason: Not Given)0809 (Given - Provider: Maggie Mckeon, MEIR)0938 (Canceled Entry - Provider: Maggie Mckeon RN) 10 mg, Oral, Every six hours prn, Starti ng on Sat04/25/21 at 2222, Until Discontinued, severe pain oxyCODONE (OXY-IR) tablet 5 mg 5 mg, Oral, Every six hours prn, Startin g on Sat04/26/21 at 0731, Until Discontinued, moderate pain senna-docusate sodium (SENOKOT-S;PERICOLACE) tablet 2 tablet 2 tablet, Oral, Two times a day prn, Sta rting on Sat04/25/21 at 2223, Until Discontinued, constipation Order Group 1: lidocaine (LIDODERM) 5% patchJump to med 1 patch, Apply externally, Daily, First dose on Sat04/26/21 at 0900, Until Discontinued, Administer over 12 Hours And lidocaine (LIDODERM) 5% patchJump to med 1 patch, Apply externally, Daily, First dose on Sat04/26/21 at 0900, Until Discontinued, Administer over 12 Hours And lidocaine (LIDODERM) 5% patchJump to med 1 patch, Apply externally, Daily, First dose on Sat04/26/21 at 0900, Until Discontinued, Administer over 12 Hours Group 2: ondansetron (ZOFRAN ODT) dispersible tablet 4 mgJump to med 4 mg, Oral, Four times a day prn, Starti ng on Sat04/25/21 at 2225, Until Discontinued, nausea, vomiting
Use FIRST for nausea / vomiting. If ineffective after 30 minutes use ondansetron IV
And ondansetron (ZOFRAN) injection solution 4 mgJump to med 4 mg, IV, Four times a day prn, Starting on Sat04/25/21 at 2225, Until Discontinued, nausea, vomiting, 2 mL
Use SECOND for nausea / vomiting. If ineffective after 30 minutes and ondan setron ODT used, call physician for alte rnative. If preference is to further dilute for IV administration: First draw up patient-specific dose, then dilute to 10 mL with 0.9% sodium chloride.
documented in this encounter
[2021-05-01] MEDS: atorvaSTATin 10 MG Tab PO SCH (21:04)
[2021-05-01] MEDS: Remove Patch LIDOCAINE PATCHES TRDERM SCH (21:04)
[2021-05-02] MEDS: Sodium Chloride 0.9% 10 ML Syringe FLUSH SCH ×12 (00:54→20:25)
[2021-05-02] MEDS: Oxacillin 2 GM in Sodium Chloride 0.9% 100 ML IV SCH ×6 (00:54→19:31)
[2021-05-02] MEDS: oxyCODONE 5 MG Tab PO PRN ×2 (05:43→13:28)
[2021-05-02] MEDS: Alendronate 70 MG Tab PO SCH (07:05)
[2021-05-02] MEDS: Acetaminophen 500 MG Tab PO SCH ×3 (08:19→17:00)
[2021-05-02] MEDS: Polyethylene Glycol 3350 Powder 17 GM Packet PO SCH ×2 (08:20→17:01)
[2021-05-02] MEDS: Famotidine 20 MG Tab PO SCH ×2 (08:20→17:00)
[2021-05-02] MEDS: hydrOXYzine Pamoate 25 MG Cap PO PRN (08:20)
[2021-05-02] MEDS: Gabapentin 300 MG Cap PO SCH ×3 (08:20→17:00)
[2021-05-02] MEDS: Lidocaine 4% 1 each Patch TOP SCH (08:34)
[2021-05-02] MEDS: Ascorbic Acid 500 MG Tab PO SCH (08:35)
[2021-05-02] MEDS: Calcium Carbonate/Vitamin D3 1500 MG-400 Units Tab PO SCH (08:35)
[2021-05-02] MEDS: Cholecalciferol (Vitamin D3) 25 MCG Tab PO SCH (08:35)
[2021-05-02] MEDS: Multivitamin Tab PO SCH (08:35)
[2021-05-02] MEDS ORDERED: Nitroglycerin 0.4 MG Tab.SL ONE (11:30)
[2021-05-02] MEDS ORDERED: Nitroglycerin 0.4 MG Tab.SL SL ONE (11:30)
[2021-05-02] MEDS ORDERED: GI Cocktail Oral Solution 30 ML PO ONE (11:39)
[2021-05-02] MEDS ORDERED: GI Cocktail Oral Solution 30 ML ONE (11:39)
[2021-05-02 11:51] LABS: ANION GAP 6.7 meq/L (7-15); CHLORIDE,CL 107 mmol/L (98-107); SODIUM,NA 140 mmol/L (136-145)
[2021-05-02] MEDS ORDERED: Iopamidol 755 Mg/ML 100 ML Bottle IVPUSH STA (12:12)
--- NOTE | 2021-05-02 17:02 | PCM.PN ---
- General Info Date of Service: 05/02/21 Subjective Update: I was notified by Willy Murry RN that patient had a near syncopal episode with vomiting. Placed order for basic lab as patient was not having chest pain or shortness of breath. Notified by nursing staff at [facility] of patient's vital signs. Spoke with Willy Murry who states patient was having chest pressure and I recommended the ER as I was not in town to assess patient. Labs already ordered and patient stable long enough to get EKG. Asked nurse to document recommendation for ER as patient did not want to go. Reviewed ekg and concern regarding abnormalities, ddimer positive, and lab orders. ER provider notified by nursing staff as I would not be there until noon. Arrived at noon, patient states head aches but points to neck muscles, tender on palpation, no bruits. neuro intact. Denies cp or dyspnea. States she just felt faint and saw stars before vomiting. Denies pain elsewhere. Does not want ER or to be admitted to inpatient. Assured patient I would return again at end of day. Saw patient at 5 pm. States feeling tired but not ill. Still has some neck pain in muscles, not spine. Easy to reproduce. Agrees to defer any sedating me dications so we can monitor through night. Family present and agrees. Lungs clear, hrrr. Functional Status: Reports: New Symptoms - Review of Systems General: Reports: Weakness, Fatigue HEENT: Reports: Headaches. Denies: Dysphasia, Ear Pain, Eye Pain, Sore Throat, Visual Changes Pulmonary: Denies: Shortness of Breath, Pleuritic Chest Pain, Cough, Wheezing Cardiovascular: Reports: Chest Pain (Resolved). Denies: Palpitations, Dyspnea on Exertion, Lightheadedness Gastrointestinal: Reports: Nausea (resolved after presyncope) Musculoskeletal: Reports: Back Pain (better over past 48 hours) - Patient Data Vitals - Most Recent: Last Vital Signs Temp 97.7 F 05/02/21 08:40 Pulse 66 05/02/21 13:16 Resp 16 05/02/21 13:16 BP 140/73 05/02/21 13:16 Pulse Ox 97 05/02/21 13:16 I&O - Last 24 Hours: Intake & Output 05/02/21 05/02/21 05/02/21 06:59 14:59 22:59 Intake Total 900 Balance 900 Lab Results Last 24 Hours: Laboratory Results - last 24 hr 05/02/21 05/02/21 05/02/21 Range/Units 10:22 11:15 11:15 WBC 8.5 (4.0-10.2) K/uL RBC 3.39 L (3.77-5.09) M/uL Hgb 9.9 L (11.7-15.5) g/dL Hct 31.7 L (34.0-46.0) % MCV 93.5 (84.0-98.0) fL MCH 29.2 (28.2-33.3) pg MCHC 31.2 L (31.7-36.0) g/dL RDW 14.9 H (11.2-14.1) % Plt Count 444 H (150-350) K/uL Neut % (Auto) 61.4 (45.0-80.0) % Lymph % (Auto) 29.2 (10.0-50.0) % [place] % (Auto) 6.5 (2.0-14.0) % Eos % (Auto) 2.5 (0.0-5.0) % Baso % (Auto) 0.4 (0.0-2.0) % Neut # (Auto) 5.22 (1.40-7.00) K/uL Lymph # (Auto) 2.48 (0.50-3.50) K/uL [place] # (Auto) 0.55 (0.00-1.00) K/uL Eos # (Auto) 0.21 (0.00-0.50) K/uL Baso # (Auto) 0.03 (0.00-0.20) K/uL D-Dimer, Quantitative (0-400) ng/mL Sodium 140 (136-145) mmol/L Potassium 4.1 (3.5-5.1) mmol/L Chloride 107 (98-107) mmol/L Carbon Dioxide 26.3 (21.0-32.0) mmol/L Anion Gap 6.7 L (7-15) meq/L BUN 15 (7-18) mg/dL Creatinine 0.91 (0.51-1.17) mg/dL Est Cr Clr Drug Dosing TNP Estimated GFR (MDRD) > 60 mL/min Glucose 99 (70-99) mg/dL POC Glucose 100 H (70-99) mg/dL Calcium 8.8 (8.5-10.1) mg/dL Magnesium 2.0 (1.8-2.4) mg/dL Total Bilirubin 0.3 (0.2-1.0) mg/dL AST 32 (15-37) U/L ALT 17 (12-78) U/L Alkaline Phosphatase 111 (46-116) IU/L Troponin I High Sens 5 (<=51) ng/L Total Protein 7.3 (6.4-8.2) g/dL Albumin 3.1 L (3.4-5.0) g/dL Lipase 84 (73-393) U/L 05/02/21 05/02/21 Range/Units 11:15 14:40 WBC (4.0-10.2) K/uL RBC (3.77-5.09) M/uL Hgb (11.7-15.5) g/dL Hct (34.0-46.0) % MCV (84.0-98.0) fL MCH (28.2-33.3) pg MCHC (31.7-36.0) g/dL RDW (11.2-14.1) % Plt Count (150-350) K/uL Neut % (Auto) (45.0-80.0) % Lymph % (Auto) (10.0-50.0) % [place] % (Auto) (2.0-14.0) % Eos % (Auto) (0.0-5.0) % Baso % (Auto) (0.0-2.0) % Neut # (Auto) (1.40-7.00) K/uL Lymph # (Auto) (0.50-3.50) K/uL [place] # (Auto) (0.00-1.00) K/uL Eos # (Auto) (0.00-0.50) K/uL Baso # (Auto) (0.00-0.20) K/uL D-Dimer, Quantitative 2060 H (0-400) ng/mL Sodium (136-145) mmol/L Potassium (3.5-5.1) mmol/L Chloride (98-107) mmol/L Carbon Dioxide (21.0-32.0) mmol/L Anion Gap (7-15) meq/L BUN (7-18) mg/dL Creatinine (0.51-1.17) mg/dL Est Cr Clr Drug Dosing Estimated GFR (MDRD) mL/min Glucose (70-99) mg/dL POC Glucose (70-99) mg/dL Calcium (8.5-10.1) mg/dL Magnesium (1.8-2.4) mg/dL Total Bilirubin (0.2-1.0) mg/dL AST (15-37) U/L ALT (12-78) U/L Alkaline Phosphatase (46-116) IU/L Troponin I High Sens 5 (<=51) ng/L Total Protein (6.4-8.2) g/dL Albumin (3.4-5.0) g/dL Lipase (73-393) U/L Med Orders - Current: Current Medications Acetaminophen (Acetaminophen 500 Mg Tab) 1,000 mg PO TID [facility] Last Admin: 05/02/21 13:23 Dose: 1,000 mg Documented by: Acetaminophen (Acetaminophen 500 Mg Tab) 500 mg PO BID PRN PRN Reason: Fever Alendronate Sodium (Alendronate 70 Mg Tab) 70 mg PO Q7D [facility] Last Admin: 05/02/21 07:05 Dose: 70 mg Documented by: Ascorbic Acid (Ascorbic Acid 500 Mg Tab) 500 mg PO DAILY [facility] Last Admin: 05/02/21 08:35 Dose: 500 mg Documented by: Atorvastatin Calcium (Atorvastatin 10 Mg Tab) 20 mg PO BEDTIME [facility] Last Admin: 05/01/21 21:04 Dose: 20 mg Documented by: Calcium Carbonate (Calcium Carbonate/Vitamin D3 1500 Mg-400 Units Tab) 1 tab PO DAILY [facility] Last Admin: 05/02/21 08:35 Dose: 1 tab Documented by: Cholecalciferol (Cholecalciferol (Vitamin D3) 25 Mcg Tab) 50 mcg PO DAILY [facility] Last Admin: 05/02/21 08:35 Dose: 50 mcg Documented by: Famotidine (Famotidine 20 Mg Tab) 20 mg PO BID [facility] Last Admin: 05/02/21 08:20 Dose: 20 mg Documented by: Gabapentin (Gabapentin 300 Mg Cap) 300 mg PO TID [facility] Last Admin: 05/02/21 13:23 Dose: 300 mg Documented by: Heparin Sodium (Porcine) (Heparin Sodium 100 Units/Ml 5 Ml Syringe) 300 units FLUSH Q4H [facility] Last Admin: 05/02/21 13:24 Dose: 300 units Documented by: Heparin Sodium (Porcine) (Heparin Sodium 100 Units/Ml 5 Ml Syringe) 3 units FLUSH ASDIRECTED PRN PRN Reason: PICC Hydroxyzine Pamoate (Hydroxyzine Pamoate 25 Mg Cap) 25 mg PO Q6H PRN PRN Reason: Anxiety Last Admin: 05/02/21 08:20 Dose: 25 mg Documented by: Oxacillin Sodium 2 gm/ Sodium (Chloride) 100 mls @ 100 mls/hr IV Q4H [facility] Last Admin: 05/02/21 13:19 Dose: 100 mls/hr Documented by: Lidocaine (Lidocaine 4% 1 Each Patch) 3 each TOP DAILY@0900 [facility] Last Admin: 05/02/21 08:34 Dose: 3 each Documented by: Miscellaneous Information (Remove Patch Lidocaine Patches) 1 ea TRDERM BEDTIME [facility] Last Admin: 05/01/21 21:04 Dose: 1 ea Documented by: Miscellaneous Information (Remove Patch) 1 ea TRDERM Q24H [facility] Last Admin: 05/01/21 21:04 Dose: 1 ea Documented by: Multivitamins/Minerals/Vitamin C (Multivitamin Tab) 2 tab PO DAILY [facility] Last Admin: 05/02/21 08:35 Dose: 2 tab Documented by: Oxycodone HCl (Oxycodone 5 Mg Tab) 10 mg PO Q4H PRN PRN Reason: SEVERE PAIN Last Admin: 05/02/21 13:28 Dose: 10 mg Documented by: Oxycodone HCl (Oxycodone 5 Mg Tab) 5 mg PO Q4H PRN PRN Reason: PAIN Last Admin: 05/01/21 17:23 Dose: 5 mg Documented by: Polyethylene Glycol (Polyethylene Glycol 3350 Powder 17 Gm Packet) 17 gm PO BID [facility] Last Admin: 05/02/21 08:20 Dose: Not Given Documented by: Senna/Docusate Sodium (Docusate Sodium/Sennosides 50-8.6 Mg Tab) 2 tab PO BID PRN PRN Reason: Constipation Sodium Chloride (Sodium Chloride 0.9% 10 Ml Syringe) 10 ml FLUSH Q4H [facility] Last Admin: 05/02/21 13:19 Dose: 10 ml Documented by: Sodium Chloride (Sodium Chloride 0.9% 10 Ml Syringe) 10 ml FLUSH Q4H [facility] Last Admin: 05/02/21 13:24 Dose: 10 ml Documented by: Sodium Chloride (Sodium Chloride 0.9% 10 Ml Syringe) 10 ml IV ASDIRECTED PRN PRN Reason: PICC Discontinued Medications Al Hydroxide/Mg Hydroxide (Gi Cocktail Oral Solution 30 Ml) Confirm Administered Dose 30 ml .ROUTE .STK-MED ONE Stop: 05/02/21 11:40 Last Admin: 05/02/21 13:18 Dose: Not Given Documented by: Al Hydroxide/Mg Hydroxide (Gi Cocktail Oral Solution 30 Ml) 30 ml PO ONETIME ONE Stop: 05/02/21 11:40 Last Admin: 05/02/21 11:42 Dose: 30 ml Documented by: Iopamidol (Iopamidol 755 Mg/Ml 100 Ml Bottle) 100 ml IVPUSH ONETIME STA Stop: 05/02/21 12:13 Last Admin: 05/02/21 12:39 Dose: 100 ml Documented by: Nitroglycerin (Nitroglycerin 0.4 Mg Tab.Sl) Confirm Administered Dose 0.4 mg .ROUTE .STK-MED ONE Stop: 05/02/21 11:31 Last Admin: 05/02/21 13:18 Dose: Not Given Documented by: Nitroglycerin (Nitroglycerin 0.4 Mg Tab.Sl) 0.4 mg SL ONETIME ONE Stop: 05/02/21 11:31 Last Admin: 05/02/21 11:32 Dose: 0.4 mg Documented by: Oxycodone HCl (Oxycodone 5 Mg Tab) 10 mg PO Q4H PRN PRN Reason: Pain - Exam General: Alert, Oriented, Cooperative, No Acute Distress HEENT: Pupils Equal, EOMI, Mucous Membr. Moist/[place] Neck: Supple Lungs: Clear to Auscultation Cardiovascular: Regular Rate, Regular Rhythm, No Murmurs. No: Irregular Rhythm, Tachycardia, Murmurs, Gallops GI/Abdominal Exam: Normal Bowel Sounds, Soft, Non-Tender, No Abnormal Bruit Skin: Warm Neurological: No New Focal Deficit Psy/Mental Status: Alert, Normal Affect, Normal Mood - Patient Data Lab Results Last 24 hrs: Laboratory Results - last 24 hr 05/02/21 05/02/21 05/02/21 Range/Units 10:22 11:15 11:15 WBC 8.5 (4.0-10.2) K/uL RBC 3.39 L (3.77-5.09) M/uL Hgb 9.9 L (11.7-15.5) g/dL Hct 31.7 L (34.0-46.0) % MCV 93.5 (84.0-98.0) fL MCH 29.2 (28.2-33.3) pg MCHC 31.2 L (31.7-36.0) g/dL RDW 14.9 H (11.2-14.1) % Plt Count 444 H (150-350) K/uL Neut % (Auto) 61.4 (45.0-80.0) % Lymph % (Auto) 29.2 (10.0-50.0) % [place] % (Auto) 6.5 (2.0-14.0) % Eos % (Auto) 2.5 (0.0-5.0) % Baso % (Auto) 0.4 (0.0-2.0) % Neut # (Auto) 5.22 (1.40-7.00) K/uL Lymph # (Auto) 2.48 (0.50-3.50) K/uL [place] # (Auto) 0.55 (0.00-1.00) K/uL Eos # (Auto) 0.21 (0.00-0.50) K/uL Baso # (Auto) 0.03 (0.00-0.20) K/uL D-Dimer, Quantitative (0-400) ng/mL Sodium 140 (136-145) mmol/L Potassium 4.1 (3.5-5.1) mmol/L Chloride 107 (98-107) mmol/L Carbon Dioxide 26.3 (21.0-32.0) mmol/L Anion Gap 6.7 L (7-15) meq/L BUN 15 (7-18) mg/dL Creatinine 0.91 (0.51-1.17) mg/dL Est Cr Clr Drug Dosing TNP Estimated GFR (MDRD) > 60 mL/min Glucose 99 (70-99) mg/dL POC Glucose 100 H (70-99) mg/dL Calcium 8.8 (8.5-10.1) mg/dL Magnesium 2.0 (1.8-2.4) mg/dL Total Bilirubin 0.3 (0.2-1.0) mg/dL AST 32 (15-37) U/L ALT 17 (12-78) U/L Alkaline Phosphatase 111 (46-116) IU/L Troponin I High Sens 5 (<=51) ng/L Total Protein 7.3 (6.4-8.2) g/dL Albumin 3.1 L (3.4-5.0) g/dL Lipase 84 (73-393) U/L 05/02/21 05/02/21 Range/Units 11:15 14:40 WBC (4.0-10.2) K/uL RBC (3.77-5.09) M/uL Hgb (11.7-15.5) g/dL Hct (34.0-46.0) % MCV (84.0-98.0) fL MCH (28.2-33.3) pg MCHC (31.7-36.0) g/dL RDW (11.2-14.1) % Plt Count (150-350) K/uL Neut % (Auto) (45.0-80.0) % Lymph % (Auto) (10.0-50.0) % [place] % (Auto) (2.0-14.0) % Eos % (Auto) (0.0-5.0) % Baso % (Auto) (0.0-2.0) % Neut # (Auto) (1.40-7.00) K/uL Lymph # (Auto) (0.50-3.50) K/uL [place] # (Auto) (0.00-1.00) K/uL Eos # (Auto) (0.00-0.50) K/uL Baso # (Auto) (0.00-0.20) K/uL D-Dimer, Quantitative 2060 H (0-400) ng/mL Sodium (136-145) mmol/L Potassium (3.5-5.1) mmol/L Chloride (98-107) mmol/L Carbon Dioxide (21.0-32.0) mmol/L Anion Gap (7-15) meq/L BUN (7-18) mg/dL Creatinine (0.51-1.17) mg/dL Est Cr Clr Drug Dosing Estimated GFR (MDRD) mL/min Glucose (70-99) mg/dL POC Glucose (70-99) mg/dL Calcium (8.5-10.1) mg/dL Magnesium (1.8-2.4) mg/dL Total Bilirubin (0.2-1.0) mg/dL AST (15-37) U/L ALT (12-78) U/L Alkaline Phosphatase (46-116) IU/L Troponin I High Sens 5 (<=51) ng/L Total Protein (6.4-8.2) g/dL Albumin (3.4-5.0) g/dL Lipase (73-393) U/L Result Diagrams: 05/02/21 11:15 05/02/21 11:15 Sepsis Event Note - Evaluation Sepsis Screening Result: No Definite Risk - Focused Exam Vital Signs: Vital Signs Temp Pulse Resp BP BP Pulse Ox 05/02/21 13:16 66 16 140/73 97 05/02/21 11:43 74 133/78 05/02/21 11:32 170/80 H 05/02/21 11:20 67 170/80 H 05/02/21 10:25 80 18 157/76 H 95 05/02/21 08:40 97.7 F 69 16 130/88 97 - Problem List & Annotations (1) Discitis of lumbosacral region SNOMED Code(s): 6419491 Code(s): M46.47 - DISCITIS, UNSPECIFIED, LUMBOSACRAL REGION Status: Acute Priority: High Current Visit: No Annotation/Comment:: Still having significant back pain and needing oral Oxycdone, Naproxsen, and APAP along with Diazepam and Gabpentin. Will work on pain control. Also here for PT/OT to work on strenghtening so she can get back to her own home. (2) Pre-syncope SNOMED Code(s): 605256407 Code(s): R55 - SYNCOPE AND COLLAPSE Status: Acute Current Visit: Yes Annotation/Comment:: Resolved. Will pursue head ct if no improvement, patient declined. Monitor for dizziness, chest discomfort, etc. (3) H/O dizziness SNOMED Code(s): 347531290 Code(s): Z87.898 - PERSONAL HISTORY OF OTHER SPECIFIED CONDITIONS Status: Acute Current Visit: Yes - Problem List Review Problem List Initiated/Reviewed/Updated: Yes - My Orders Last 24 Hours: My Active Orders 05/02/21 07:00 Alendronate [Fosamax] 70 mg PO Q7D 05/02/21 10:59 Hemoccult [OCCULT BLOOD DIAGNOSTIC] [OP] DAILY 05/02/21 11:00 URINALYSIS W/MICROSCOPIC [UA W/MICROSCOPIC] [URIN] Routine 05/02/21 11:08 Chest 2V [CR] Routine 05/02/21 12:10 Chest PE [Ang Chest] [CT] Stat 05/02/21 16:52 EKG Documentation Completion [RC] AMPROC 05/03/21 05:11 C-REACTIVE PROTEIN [CHEM] AM TROPONIN I HIGH SENSITIVITY [CHEM] AM UA W/MICROSCOPIC [URIN] AM EKG 12 Lead [EK] AM 05/03/21 10:59 Hemoccult [OCCULT BLOOD DIAGNOSTIC] [OP] DAILY 05/04/21 10:59 Hemoccult [OCCULT BLOOD DIAGNOSTIC] [OP] DAILY 05/08/21 10:00 Communication Order [RC] WEEKLY - Assessment Assessment:: presyncope ekg changes neg trop discitis cervical neck pain positive ddimer - Plan Plan:: Patient will be monitored through night and go to ER if symptoms of chest pain, new neuro changes occur. Declines inpatient or ER now. Iron studies and fobt ordered. Head ct discussed but appears to be muscular in nature. Follow up visit tomorrow.
[2021-05-02] MEDS: Remove Patch LIDOCAINE PATCHES TRDERM SCH (19:32)
[2021-05-02] MEDS: atorvaSTATin 10 MG Tab PO SCH (19:32)
[2021-05-03] MEDS: Oxacillin 2 GM in Sodium Chloride 0.9% 100 ML IV SCH ×6 (00:16→20:50)
[2021-05-03] MEDS: Sodium Chloride 0.9% 10 ML Syringe FLUSH SCH ×12 (00:17→20:52)
[2021-05-03] MEDS: Polyethylene Glycol 3350 Powder 17 GM Packet PO SCH ×2 (08:03→18:35)
[2021-05-03] MEDS: Multivitamin Tab PO SCH (08:05)
[2021-05-03] MEDS: Cholecalciferol (Vitamin D3) 25 MCG Tab PO SCH (08:05)
[2021-05-03] MEDS: Acetaminophen 500 MG Tab PO SCH ×3 (08:06→17:19)
[2021-05-03] MEDS: Calcium Carbonate/Vitamin D3 1500 MG-400 Units Tab PO SCH (08:06)
[2021-05-03] MEDS: Ascorbic Acid 500 MG Tab PO SCH (08:06)
[2021-05-03] MEDS: Famotidine 20 MG Tab PO SCH ×2 (08:06→17:19)
[2021-05-03] MEDS: Gabapentin 300 MG Cap PO SCH ×3 (08:06→17:18)
[2021-05-03] MEDS: Lidocaine 4% 1 each Patch TOP SCH (09:01)
[2021-05-03] MEDS: oxyCODONE 5 MG Tab PO PRN ×2 (11:49→21:06)
[2021-05-03] MEDS: atorvaSTATin 10 MG Tab PO SCH (20:49)
[2021-05-03] MEDS: Remove Patch LIDOCAINE PATCHES TRDERM SCH (20:50)
[2021-05-04] MEDS: Sodium Chloride 0.9% 10 ML Syringe FLUSH SCH ×12 (01:15→22:32)
[2021-05-04] MEDS: Oxacillin 2 GM in Sodium Chloride 0.9% 100 ML IV SCH ×6 (01:16→20:02)
[2021-05-04] MEDS: oxyCODONE 5 MG Tab PO PRN ×2 (08:36→20:00)
[2021-05-04] MEDS: Acetaminophen 500 MG Tab PO SCH ×3 (08:37→17:07)
[2021-05-04] MEDS: Calcium Carbonate/Vitamin D3 1500 MG-400 Units Tab PO SCH (08:38)
[2021-05-04] MEDS: Lidocaine 4% 1 each Patch TOP SCH (08:38)
[2021-05-04] MEDS: Cholecalciferol (Vitamin D3) 25 MCG Tab PO SCH (08:39)
[2021-05-04] MEDS: Gabapentin 300 MG Cap PO SCH ×3 (08:39→17:08)
[2021-05-04] MEDS: Polyethylene Glycol 3350 Powder 17 GM Packet PO SCH ×2 (08:39→17:09)
[2021-05-04] MEDS: Multivitamin Tab PO SCH (08:40)
[2021-05-04] MEDS: Famotidine 20 MG Tab PO SCH ×2 (08:40→17:08)
[2021-05-04] MEDS: Ascorbic Acid 500 MG Tab PO SCH (08:41)
[2021-05-04] MEDS: Ondansetron 4 MG Tab.DIS PO PRN ×2 (12:14→20:00)
[2021-05-04] MEDS: atorvaSTATin 10 MG Tab PO SCH (20:00)
[2021-05-04] MEDS: Remove Patch LIDOCAINE PATCHES TRDERM SCH (20:03)
[2021-05-05] MEDS: Oxacillin 2 GM in Sodium Chloride 0.9% 100 ML IV SCH ×6 (00:01→19:49)
[2021-05-05] MEDS: Sodium Chloride 0.9% 10 ML Syringe FLUSH SCH ×12 (00:02→20:58)
[2021-05-05] MEDS: Ondansetron 4 MG Tab.DIS PO PRN ×3 (08:04→16:45)
[2021-05-05] MEDS: Gabapentin 300 MG Cap PO SCH ×3 (08:05→19:50)
[2021-05-05] MEDS: Cholecalciferol (Vitamin D3) 25 MCG Tab PO SCH (08:05)
[2021-05-05] MEDS: Multivitamin Tab PO SCH (08:05)
[2021-05-05] MEDS: Ascorbic Acid 500 MG Tab PO SCH (08:05)
[2021-05-05] MEDS: Calcium Carbonate/Vitamin D3 1500 MG-400 Units Tab PO SCH (08:05)
[2021-05-05] MEDS: Famotidine 20 MG Tab PO SCH ×2 (08:05→17:21)
[2021-05-05] MEDS: Acetaminophen 500 MG Tab PO SCH ×3 (08:06→19:51)
[2021-05-05] MEDS: oxyCODONE 5 MG Tab PO PRN ×2 (08:06→19:51)
[2021-05-05] MEDS: Polyethylene Glycol 3350 Powder 17 GM Packet PO SCH (08:08)
[2021-05-05] MEDS: Lidocaine 4% 1 each Patch TOP SCH (08:08)
[2021-05-05] MEDS: Lactobacillus Rhamnosus GG (Probiotic) Cap PO SCH (17:21)
[2021-05-05] MEDS: hydrOXYzine Pamoate 25 MG Cap PO PRN (19:50)
[2021-05-05] MEDS: atorvaSTATin 10 MG Tab PO SCH (19:52)
[2021-05-05] MEDS: Remove Patch LIDOCAINE PATCHES TRDERM SCH (19:54)
[2021-05-06] MEDS: Sodium Chloride 0.9% 10 ML Syringe FLUSH SCH ×13 (00:17→21:19)
[2021-05-06] MEDS: Oxacillin 2 GM in Sodium Chloride 0.9% 100 ML IV SCH ×6 (00:17→20:10)
[2021-05-06] MEDS: oxyCODONE 5 MG Tab PO PRN ×4 (00:28→20:08)
[2021-05-06] MEDS: Lidocaine 4% 1 each Patch TOP SCH (08:28)
[2021-05-06] MEDS: Acetaminophen 500 MG Tab PO SCH ×3 (08:29→20:08)
[2021-05-06] MEDS: Lactobacillus Rhamnosus GG (Probiotic) Cap PO SCH ×2 (08:29→17:05)
[2021-05-06] MEDS: Polyethylene Glycol 3350 Powder 17 GM Packet PO SCH (08:29)
[2021-05-06] MEDS: Famotidine 20 MG Tab PO SCH ×2 (08:29→17:05)
[2021-05-06] MEDS: Cholecalciferol (Vitamin D3) 25 MCG Tab PO SCH (08:29)
[2021-05-06] MEDS: Ascorbic Acid 500 MG Tab PO SCH (08:30)
[2021-05-06] MEDS: Ondansetron 4 MG Tab.DIS PO PRN ×2 (08:30→20:13)
[2021-05-06] MEDS: Multivitamin Tab PO SCH (08:30)
[2021-05-06] MEDS: Gabapentin 300 MG Cap PO SCH ×3 (08:30→20:09)
[2021-05-06] MEDS: Calcium Carbonate/Vitamin D3 1500 MG-400 Units Tab PO SCH (08:30)
[2021-05-06] MEDS: atorvaSTATin 10 MG Tab PO SCH (20:08)
[2021-05-06] MEDS: Remove Patch LIDOCAINE PATCHES TRDERM SCH (20:09)
[2021-05-07] MEDS: Sodium Chloride 0.9% 10 ML Syringe FLUSH SCH ×12 (00:07→20:15)
[2021-05-07] MEDS: Oxacillin 2 GM in Sodium Chloride 0.9% 100 ML IV SCH ×6 (00:07→20:17)
[2021-05-07] MEDS: Ondansetron 4 MG Tab.DIS PO PRN (08:22)
[2021-05-07] MEDS: Acetaminophen 500 MG Tab PO SCH ×3 (08:22→20:13)
[2021-05-07] MEDS: Lactobacillus Rhamnosus GG (Probiotic) Cap PO SCH ×2 (08:22→17:52)
[2021-05-07] MEDS: Multivitamin Tab PO SCH (08:23)
[2021-05-07] MEDS: Famotidine 20 MG Tab PO SCH ×2 (08:23→17:52)
[2021-05-07] MEDS: oxyCODONE 5 MG Tab PO PRN (08:23)
[2021-05-07] MEDS: Ascorbic Acid 500 MG Tab PO SCH (08:23)
[2021-05-07] MEDS: Cholecalciferol (Vitamin D3) 25 MCG Tab PO SCH (08:23)
[2021-05-07] MEDS: Gabapentin 300 MG Cap PO SCH ×3 (08:23→20:14)
[2021-05-07] MEDS: Calcium Carbonate/Vitamin D3 1500 MG-400 Units Tab PO SCH (08:23)
[2021-05-07] MEDS: Polyethylene Glycol 3350 Powder 17 GM Packet PO SCH (08:24)
[2021-05-07] MEDS: Lidocaine 4% 1 each Patch TOP SCH (09:32)
[2021-05-07] MEDS: atorvaSTATin 10 MG Tab PO SCH (20:12)
[2021-05-07] MEDS: Remove Patch LIDOCAINE PATCHES TRDERM SCH (21:00)
[2021-05-08] MEDS: Oxacillin 2 GM in Sodium Chloride 0.9% 100 ML IV SCH ×6 (00:39→20:39)
[2021-05-08] MEDS: Sodium Chloride 0.9% 10 ML Syringe FLUSH SCH ×12 (00:39→20:45)
[2021-05-08] MEDS: oxyCODONE 5 MG Tab PO PRN ×3 (01:52→20:42)
[2021-05-08] MEDS ORDERED: Gadobenate Dimeglumine 529 MG/ML 15 ML SDV IVPUSH ONE (07:30)
[2021-05-08] MEDS: Acetaminophen 500 MG Tab PO SCH ×3 (08:00→20:41)
[2021-05-08] MEDS: Lactobacillus Rhamnosus GG (Probiotic) Cap PO SCH ×2 (08:01→17:18)
[2021-05-08] MEDS: Famotidine 20 MG Tab PO SCH ×2 (08:02→17:18)
[2021-05-08] MEDS: Gabapentin 300 MG Cap PO SCH ×3 (08:03→20:41)
[2021-05-08] MEDS: Ondansetron 4 MG Tab.DIS PO PRN (08:10)
[2021-05-08] MEDS: Lidocaine 4% 1 each Patch TOP SCH (08:11)
[2021-05-08] MEDS: Calcium Carbonate/Vitamin D3 1500 MG-400 Units Tab PO SCH (09:07)
[2021-05-08] MEDS: Ascorbic Acid 500 MG Tab PO SCH (09:07)
[2021-05-08] MEDS: Cholecalciferol (Vitamin D3) 25 MCG Tab PO SCH (09:07)
[2021-05-08] MEDS: Multivitamin Tab PO SCH (09:07)
[2021-05-08] MEDS: Polyethylene Glycol 3350 Powder 17 GM Packet PO SCH (09:07)
[2021-05-08] MEDS ORDERED: Gadobenate Dimeglumine 529 MG/ML 15 ML SDV ONE (10:20)
[2021-05-08] MEDS: atorvaSTATin 10 MG Tab PO SCH (20:40)
[2021-05-08] MEDS: hydrOXYzine Pamoate 25 MG Cap PO PRN (20:41)
[2021-05-08] MEDS: Remove Patch LIDOCAINE PATCHES TRDERM SCH (20:43)
[2021-05-09] MEDS: Oxacillin 2 GM in Sodium Chloride 0.9% 100 ML IV SCH ×6 (00:35→21:00)
[2021-05-09] MEDS: Sodium Chloride 0.9% 10 ML Syringe FLUSH SCH ×12 (00:36→21:01)
[2021-05-09] MEDS: Alendronate 70 MG Tab PO SCH (06:27)
[2021-05-09] MEDS: oxyCODONE 5 MG Tab PO PRN ×3 (06:31→22:07)
[2021-05-09] MEDS: Ondansetron 4 MG Tab.DIS PO PRN (08:01)
[2021-05-09] MEDS: Lactobacillus Rhamnosus GG (Probiotic) Cap PO SCH ×2 (08:03→17:34)
[2021-05-09] MEDS: Gabapentin 300 MG Cap PO SCH ×3 (08:04→20:58)
[2021-05-09] MEDS: Famotidine 20 MG Tab PO SCH ×2 (08:05→17:34)
[2021-05-09] MEDS: Acetaminophen 500 MG Tab PO SCH ×3 (08:05→20:59)
[2021-05-09] MEDS: Polyethylene Glycol 3350 Powder 17 GM Packet PO SCH (08:10)
[2021-05-09] MEDS: Lidocaine 4% 1 each Patch TOP SCH (09:05)
[2021-05-09] MEDS: Multivitamin Tab PO SCH (09:59)
[2021-05-09] MEDS: Ascorbic Acid 500 MG Tab PO SCH (09:59)
[2021-05-09] MEDS: Cholecalciferol (Vitamin D3) 25 MCG Tab PO SCH ×2 (09:59→11:34)
[2021-05-09] MEDS: Calcium Carbonate/Vitamin D3 1500 MG-400 Units Tab PO SCH ×2 (09:59→11:34)
--- NOTE | 2021-05-09 17:27 | PCM.PN ---
- General Info Date of Service: 05/09/21 Subjective Update: Patient is evaluated at bedside for follow up to her post op abscess of lumbar spine. Recent MRI reviewed with patient-showing improvement in abscess size. She is still using IV antibiotics and has appointment with ID Saturday. She complains of nausea with her MVI and has asked to move it to noon. She continues with urinary incontinence/dribbling but was informed that it may improve once abscess decreases in size. Aware of further bladder evaluation and therapy. Declines med changes for bladder. Continues with edema in legs. Has had us of BLE ordered but not completed-will schedule for tomorrow. Eating well, bowel ok. Patient working with PT in hopes of returning home soon. - Review of Systems General: Reports: No Symptoms HEENT: Reports: No Symptoms Pulmonary: Reports: No Symptoms Cardiovascular: Reports: No Symptoms Gastrointestinal: Reports: Nausea Genitourinary: Reports: Incontinence Musculoskeletal: Reports: Back Pain - Patient Data Vitals - Most Recent: Last Vital Signs Temp 98.2 F 05/09/21 08:00 Pulse 64 05/09/21 08:00 Resp 14 05/09/21 08:00 BP 141/73 H 05/09/21 08:00 Pulse Ox 98 05/09/21 08:00 Weight - Most Recent: 186 lb 4.8 oz I&O - Last 24 Hours: Intake & Output 05/09/21 05/09/21 05/09/21 06:59 14:59 22:59 Intake Total 400 600 Balance 400 600 Med Orders - Current: Current Medications Acetaminophen (Acetaminophen 500 Mg Tab) 500 mg PO BID PRN PRN Reason: Fever Acetaminophen (Acetaminophen 500 Mg Tab) 1,000 mg PO TID@,, [facility] Last Admin: 05/09/21 13:19 Dose: 1,000 mg Documented by: Alendronate Sodium (Alendronate 70 Mg Tab) 70 mg PO Q7D [facility] Last Admin: 05/09/21 06:27 Dose: 70 mg Documented by: Ascorbic Acid (Ascorbic Acid 500 Mg Tab) 500 mg PO DAILY [facility] Last Admin: 05/09/21 09:59 Dose: Not Given Documented by: Atorvastatin Calcium (Atorvastatin 10 Mg Tab) 20 mg PO BEDTIME [facility] Last Admin: 05/08/21 20:40 Dose: 20 mg Documented by: Calcium Carbonate (Calcium Carbonate/Vitamin D3 1500 Mg-400 Units Tab) 1 tab PO DAILY@1200 [facility] Last Admin: 05/09/21 11:34 Dose: 1 tab Documented by: Cholecalciferol (Cholecalciferol (Vitamin D3) 25 Mcg Tab) 50 mcg PO DAILY@1200 [facility] Last Admin: 05/09/21 11:34 Dose: 50 mcg Documented by: Famotidine (Famotidine 20 Mg Tab) 20 mg PO BID [facility] Last Admin: 05/09/21 08:05 Dose: 20 mg Documented by: Gabapentin (Gabapentin 300 Mg Cap) 300 mg PO TID@08,14,20 [facility] Last Admin: 05/09/21 13:19 Dose: 300 mg Documented by: Heparin Sodium (Porcine) (Heparin Sodium 100 Units/Ml 5 Ml Syringe) 300 units FLUSH Q4H [facility] Last Admin: 05/09/21 13:18 Dose: 300 units Documented by: Heparin Sodium (Porcine) (Heparin Sodium 100 Units/Ml 5 Ml Syringe) 300 units FLUSH ASDIRECTED PRN PRN Reason: PICC Hydroxyzine Pamoate (Hydroxyzine Pamoate 25 Mg Cap) 25 mg PO Q6H PRN PRN Reason: Anxiety Last Admin: 05/08/21 20:41 Dose: 25 mg Documented by: Oxacillin Sodium 2 gm/ Sodium (Chloride) 100 mls @ 100 mls/hr IV Q4H [facility] Last Admin: 05/09/21 16:32 Dose: 100 mls/hr Documented by: Lactobacillus Rhamnosus (Lactobacillus Rhamnosus Gg (Probiotic) Cap) 2 cap PO BID [facility] Last Admin: 05/09/21 08:03 Dose: 2 cap Documented by: Lidocaine (Lidocaine 4% 1 Each Patch) 3 each TOP DAILY@0900 [facility] Last Admin: 05/09/21 09:05 Dose: 3 each Documented by: Miscellaneous Information (Remove Patch Lidocaine Patches) 1 ea TRDERM BEDTIME [facility] Last Admin: 05/08/21 20:43 Dose: 1 ea Documented by: Miscellaneous Information (Remove Patch) 1 ea TRDERM Q24H [facility] Last Admin: 05/08/21 20:43 Dose: 1 ea Documented by: Multivitamins/Minerals/Vitamin C (Multivitamin Tab) 2 tab PO DAILY [facility] Last Admin: 05/09/21 09:59 Dose: Not Given Documented by: Ondansetron HCl (Ondansetron 4 Mg Tab.Dis) 4 mg PO Q4H PRN PRN Reason: Nausea/Vomiting Last Admin: 05/09/21 08:01 Dose: 4 mg Documented by: Oxycodone HCl (Oxycodone 5 Mg Tab) 10 mg PO Q4H PRN PRN Reason: PAIN OF 8-10 SCORE Last Admin: 05/09/21 06:31 Dose: 10 mg Documented by: Oxycodone HCl (Oxycodone 5 Mg Tab) 5 mg PO Q4H PRN PRN Reason: PAIN OF 4-7 SCORE Last Admin: 05/09/21 16:42 Dose: 5 mg Documented by: Polyethylene Glycol (Polyethylene Glycol 3350 Powder 17 Gm Packet) 17 gm PO DAILY [facility] Last Admin: 05/09/21 08:10 Dose: Not Given Documented by: Senna/Docusate Sodium (Docusate Sodium/Sennosides 50-8.6 Mg Tab) 2 tab PO BID PRN PRN Reason: Constipation Last Admin: 05/06/21 22:02 Dose: 2 tab Documented by: Sodium Chloride (Sodium Chloride 0.9% 10 Ml Syringe) 10 ml FLUSH Q4H [facility] Last Admin: 05/09/21 16:33 Dose: 10 ml Documented by: Sodium Chloride (Sodium Chloride 0.9% 10 Ml Syringe) 10 ml FLUSH Q4H [facility] Last Admin: 05/09/21 13:19 Dose: 10 ml Documented by: Sodium Chloride (Sodium Chloride 0.9% 10 Ml Syringe) 10 ml IV ASDIRECTED PRN PRN Reason: PICC Discontinued Medications Acetaminophen (Acetaminophen 500 Mg Tab) 1,000 mg PO TID [facility] Last Admin: 05/05/21 12:14 Dose: 1,000 mg Documented by: Al Hydroxide/Mg Hydroxide (Gi Cocktail Oral Solution 30 Ml) Confirm Administered Dose 30 ml .ROUTE .STK-MED ONE Stop: 05/02/21 11:40 Last Admin: 05/02/21 13:18 Dose: Not Given Documented by: Al Hydroxide/Mg Hydroxide (Gi Cocktail Oral Solution 30 Ml) 30 ml PO ONETIME ONE Stop: 05/02/21 11:40 Last Admin: 05/02/21 11:42 Dose: 30 ml Documented by: Calcium Carbonate (Calcium Carbonate/Vitamin D3 1500 Mg-400 Units Tab) 1 tab PO DAILY [facility] Last Admin: 05/09/21 09:59 Dose: Not Given Documented by: Cholecalciferol (Cholecalciferol (Vitamin D3) 25 Mcg Tab) 50 mcg PO DAILY [facility] Last Admin: 05/09/21 09:59 Dose: Not Given Documented by: Gabapentin (Gabapentin 300 Mg Cap) 300 mg PO TID [facility] Last Admin: 05/05/21 12:14 Dose: 300 mg Documented by: Gadobenate Dimeglumine (Gadobenate Dimeglumine 529 Mg/Ml 15 Ml Sdv) 15 ml IVPUSH ONETIME ONE Stop: 05/08/21 07:31 Last Admin: 05/08/21 20:29 Dose: Not Given Documented by: Gadobenate Dimeglumine (Gadobenate Dimeglumine 529 Mg/Ml 15 Ml Sdv) Confirm Administered Dose 15 ml .ROUTE .STK-MED ONE Stop: 05/08/21 10:21 Last Admin: 05/08/21 20:29 Dose: Not Given Documented by: Heparin Sodium (Porcine) (Heparin Sodium 100 Units/Ml 5 Ml Syringe) 3 units FLUSH ASDIRECTED PRN PRN Reason: PICC Iopamidol (Iopamidol 755 Mg/Ml 100 Ml Bottle) 100 ml IVPUSH ONETIME STA Stop: 05/02/21 12:13 Last Admin: 05/02/21 12:39 Dose: 100 ml Documented by: Nitroglycerin (Nitroglycerin 0.4 Mg Tab.Sl) Confirm Administered Dose 0.4 mg .R OUTE .STK-MED ONE Stop: 05/02/21 11:31 Last Admin: 05/02/21 13:18 Dose: Not Given Documented by: Nitroglycerin (Nitroglycerin 0.4 Mg Tab.Sl) 0.4 mg SL ONETIME ONE Stop: 05/02/21 11:31 Last Admin: 05/02/21 11:32 Dose: 0.4 mg Documented by: Oxycodone HCl (Oxycodone 5 Mg Tab) 10 mg PO Q4H PRN PRN Reason: Pain Polyethylene Glycol (Polyethylene Glycol 3350 Powder 17 Gm Packet) 17 gm PO BID [facility] Last Admin: 05/05/21 08:08 Dose: 17 gm Documented by: - Exam General: Alert, Oriented, Cooperative, No Acute Distress HEENT: EOMI Neck: Supple Lungs: Clear to Auscultation, Normal Respiratory Effort Cardiovascular: Regular Rate, Regular Rhythm GI/Abdominal Exam: Normal Bowel Sounds - Patient Data Result Diagrams: 05/08/21 07:55 05/08/21 07:55 Sepsis Event Note - Evaluation Sepsis Screening Result: No Definite Risk - Focused Exam Vital Signs: Vital Signs Temp Pulse Resp BP Pulse Ox 05/09/21 08:00 98.2 F 64 14 141/73 H 98 - Problem List & Annotations (1) Discitis of lumbosacral region SNOMED Code(s): 7095769 Code(s): M46.47 - DISCITIS, UNSPECIFIED, LUMBOSACRAL REGION Status: Acute Priority: High Current Visit: No Annotation/Comment:: Still having si gnificant back pain and needing oral Oxycdone, Naproxsen, and APAP along with Diazepam and Gabpentin. Will work on pain control. Also here for PT/OT to work on strenghtening so she can get back to her own home. (2) H/O dizziness SNOMED Code(s): 906455351 Code(s): Z87.898 - PERSONAL HISTORY OF OTHER SPECIFIED CONDITIONS Status: Acute Current Visit: Yes (3) Anemia SNOMED Code(s): 813614217 Code(s): D64.9 - ANEMIA, UNSPECIFIED Status: Acute Current Visit: Yes Qualifiers: Anemia type: iron deficiency Iron deficiency anemia type: unspecified iron deficiency Qualified Code(s): D50.9 - Iron deficiency anemia, unspecified (4) Anemia SNOMED Code(s): 092132444 Code(s): D64.9 - ANEMIA, UNSPECIFIED Status: Acute Current Visit: Yes (5) Nausea SNOMED Code(s): 365926522 Code(s): R11.0 - NAUSEA Status: Acute Priority: Medium Current Visit: Yes (6) Leg edema SNOMED Code(s): 699243976 Code(s): R60.0 - LOCALIZED EDEMA Status: Acute Current Visit: Yes (7) Leg edema SNOMED Code(s): 312581860 Code(s): R60.0 - LOCALIZED EDEMA Status: Acute Priority: High Current Visit: Yes Annotation/Comment:: Reordered BLE duplex US. Start lasix. - Problem List Review Problem List Initiated/Reviewed/Updated: Yes - My Orders Last 24 Hours: My Active Orders 05/09/21 12:00 Calcium Carbonate/Vitamin D3 [Caltrate 600+D 1500 MG-400 Units] 1 tab PO DAILY@1200 Cholecalciferol (Vitamin D3) [Vitamin D3] 50 mcg PO DAILY@1200 - Assessment Assessment:: presyncope ekg changes neg trop discitis cervical neck pain positive ddimer - Plan Plan:: Patient will be monitored through night and go to ER if symptoms of chest pain, new neuro changes occur. Declines inpatient or ER now. Iron studies and fobt ordered. Head ct discussed but appears to be muscular in nature. Follow up visit tomorrow. 05/09/2021 Plan:US lower extremities Lasix 20 mg daily Monitor labs for improvement in anemia Continue PT with plans to resume home Follow with ID for abx plans See patient again as needed.
[2021-05-09] MEDS: atorvaSTATin 10 MG Tab PO SCH (20:58)
[2021-05-09] MEDS: Remove Patch LIDOCAINE PATCHES TRDERM SCH (20:59)
[2021-05-10] MEDS: Oxacillin 2 GM in Sodium Chloride 0.9% 100 ML IV SCH ×6 (00:41→20:10)
[2021-05-10] MEDS: Sodium Chloride 0.9% 10 ML Syringe FLUSH SCH ×12 (00:41→20:11)
[2021-05-10 07:38] LABS: CHLORIDE,CL 111 mmol/L (98-107); SODIUM,NA 146 mmol/L (136-145)
[2021-05-10 07:45] LABS: ANION GAP 11.4 meq/L (7-15)
[2021-05-10] MEDS: Lidocaine 4% 1 each Patch TOP SCH (08:15)
[2021-05-10] MEDS: Lactobacillus Rhamnosus GG (Probiotic) Cap PO SCH ×2 (08:15→18:07)
[2021-05-10] MEDS: Ascorbic Acid 500 MG Tab PO SCH (08:15)
[2021-05-10] MEDS: Gabapentin 300 MG Cap PO SCH ×3 (08:16→20:07)
[2021-05-10] MEDS: oxyCODONE 5 MG Tab PO PRN ×3 (08:16→22:11)
[2021-05-10] MEDS: Polyethylene Glycol 3350 Powder 17 GM Packet PO SCH (08:16)
[2021-05-10] MEDS: Famotidine 20 MG Tab PO SCH ×2 (08:16→18:07)
[2021-05-10] MEDS: Acetaminophen 500 MG Tab PO SCH ×3 (08:16→20:06)
[2021-05-10] MEDS: Furosemide 20 MG Tab PO SCH (08:16)
[2021-05-10] MEDS: Multivitamin Tab PO SCH (08:20)
[2021-05-10] MEDS: Cholecalciferol (Vitamin D3) 25 MCG Tab PO SCH (12:01)
[2021-05-10] MEDS: Calcium Carbonate/Vitamin D3 1500 MG-400 Units Tab PO SCH (12:01)
[2021-05-10] MEDS: atorvaSTATin 10 MG Tab PO SCH (20:07)
[2021-05-10] MEDS: Remove Patch LIDOCAINE PATCHES TRDERM SCH (20:10)
[2021-05-11] MEDS: Oxacillin 2 GM in Sodium Chloride 0.9% 100 ML IV SCH ×6 (00:14→20:17)
[2021-05-11] MEDS: Sodium Chloride 0.9% 10 ML Syringe FLUSH SCH ×12 (00:15→20:19)
[2021-05-11] MEDS: Lactobacillus Rhamnosus GG (Probiotic) Cap PO SCH ×2 (08:15→17:42)
[2021-05-11] MEDS: Famotidine 20 MG Tab PO SCH ×2 (08:16→17:42)
[2021-05-11] MEDS: Gabapentin 300 MG Cap PO SCH ×3 (08:17→20:16)
[2021-05-11] MEDS: Acetaminophen 500 MG Tab PO SCH ×3 (08:17→20:16)
[2021-05-11] MEDS: Furosemide 20 MG Tab PO SCH (08:17)
[2021-05-11] MEDS: Polyethylene Glycol 3350 Powder 17 GM Packet PO SCH (08:19)
[2021-05-11] MEDS: Ascorbic Acid 500 MG Tab PO SCH (08:43)
[2021-05-11] MEDS: Multivitamin Tab PO SCH (08:43)
[2021-05-11] MEDS: oxyCODONE 5 MG Tab PO PRN ×3 (08:44→22:17)
[2021-05-11] MEDS: Lidocaine 4% 1 each Patch TOP SCH (09:33)
[2021-05-11] MEDS: Calcium Carbonate/Vitamin D3 1500 MG-400 Units Tab PO SCH (12:15)
[2021-05-11] MEDS: Cholecalciferol (Vitamin D3) 25 MCG Tab PO SCH (12:15)
[2021-05-11] MEDS: atorvaSTATin 10 MG Tab PO SCH (20:15)
[2021-05-11] MEDS: Remove Patch LIDOCAINE PATCHES TRDERM SCH (20:16)
[2021-05-12] MEDS: Sodium Chloride 0.9% 10 ML Syringe FLUSH SCH ×12 (00:10→20:47)
[2021-05-12] MEDS: Oxacillin 2 GM in Sodium Chloride 0.9% 100 ML IV SCH ×6 (00:11→20:49)
[2021-05-12] MEDS: oxyCODONE 5 MG Tab PO PRN ×3 (06:15→21:48)
[2021-05-12] MEDS: Lactobacillus Rhamnosus GG (Probiotic) Cap PO SCH ×2 (09:57→17:23)
[2021-05-12] MEDS: Acetaminophen 500 MG Tab PO SCH ×3 (09:58→20:49)
[2021-05-12] MEDS: Gabapentin 300 MG Cap PO SCH ×3 (09:58→20:49)
[2021-05-12] MEDS: Famotidine 20 MG Tab PO SCH ×2 (09:58→17:23)
[2021-05-12] MEDS: Furosemide 20 MG Tab PO SCH (09:58)
[2021-05-12] MEDS: Polyethylene Glycol 3350 Powder 17 GM Packet PO SCH (09:59)
[2021-05-12] MEDS: Lidocaine 4% 1 each Patch TOP SCH (10:07)
[2021-05-12] MEDS: Calcium Carbonate/Vitamin D3 1500 MG-400 Units Tab PO SCH (11:23)
[2021-05-12] MEDS: Cholecalciferol (Vitamin D3) 25 MCG Tab PO SCH (11:24)
[2021-05-12] MEDS: hydrOXYzine Pamoate 25 MG Cap PO PRN (17:28)
[2021-05-12] MEDS: atorvaSTATin 10 MG Tab PO SCH (20:49)
[2021-05-12] MEDS: Remove Patch LIDOCAINE PATCHES TRDERM SCH (20:50)
[2021-05-13] MEDS: Sodium Chloride 0.9% 10 ML Syringe FLUSH SCH ×12 (00:43→20:19)
[2021-05-13] MEDS: Oxacillin 2 GM in Sodium Chloride 0.9% 100 ML IV SCH ×6 (00:44→20:20)
[2021-05-13] MEDS: Lactobacillus Rhamnosus GG (Probiotic) Cap PO SCH ×2 (08:37→17:12)
[2021-05-13] MEDS: Acetaminophen 500 MG Tab PO SCH ×3 (08:38→20:19)
[2021-05-13] MEDS: oxyCODONE 5 MG Tab PO PRN ×3 (08:38→22:23)
[2021-05-13] MEDS: Famotidine 20 MG Tab PO SCH ×2 (08:39→17:11)
[2021-05-13] MEDS: Gabapentin 300 MG Cap PO SCH ×3 (08:39→20:19)
[2021-05-13] MEDS: Polyethylene Glycol 3350 Powder 17 GM Packet PO SCH (08:39)
[2021-05-13] MEDS: Furosemide 20 MG Tab PO SCH (08:39)
[2021-05-13] MEDS: Lidocaine 4% 1 each Patch TOP SCH (08:42)
[2021-05-13] MEDS: Calcium Carbonate/Vitamin D3 1500 MG-400 Units Tab PO SCH (12:11)
[2021-05-13] MEDS: Cholecalciferol (Vitamin D3) 25 MCG Tab PO SCH (12:12)
[2021-05-13] MEDS: hydrOXYzine Pamoate 25 MG Cap PO PRN (16:45)
[2021-05-13] MEDS: atorvaSTATin 10 MG Tab PO SCH (20:19)
[2021-05-13] MEDS: Remove Patch LIDOCAINE PATCHES TRDERM SCH (20:20)
[2021-05-14] MEDS: Sodium Chloride 0.9% 10 ML Syringe FLUSH SCH ×12 (00:25→21:02)
[2021-05-14] MEDS: Oxacillin 2 GM in Sodium Chloride 0.9% 100 ML IV SCH ×6 (00:26→21:03)
[2021-05-14] MEDS: Polyethylene Glycol 3350 Powder 17 GM Packet PO SCH (08:42)
[2021-05-14] MEDS: Acetaminophen 500 MG Tab PO SCH ×3 (08:42→21:00)
[2021-05-14] MEDS: Famotidine 20 MG Tab PO SCH ×2 (08:43→16:59)
[2021-05-14] MEDS: Gabapentin 300 MG Cap PO SCH ×3 (08:43→21:00)
[2021-05-14] MEDS: Furosemide 20 MG Tab PO SCH (08:43)
[2021-05-14] MEDS: Lactobacillus Rhamnosus GG (Probiotic) Cap PO SCH ×2 (08:43→16:59)
[2021-05-14] MEDS: Lidocaine 4% 1 each Patch TOP SCH (08:44)
[2021-05-14] MEDS: oxyCODONE 5 MG Tab PO PRN ×3 (08:45→22:07)
[2021-05-14] MEDS: Cholecalciferol (Vitamin D3) 25 MCG Tab PO SCH (12:45)
[2021-05-14] MEDS: Calcium Carbonate/Vitamin D3 1500 MG-400 Units Tab PO SCH (12:45)
[2021-05-14] MEDS: hydrOXYzine Pamoate 25 MG Cap PO PRN (16:56)
[2021-05-14] MEDS: atorvaSTATin 10 MG Tab PO SCH (21:01)
[2021-05-14] MEDS: Remove Patch LIDOCAINE PATCHES TRDERM SCH (21:03)
[2021-05-15] MEDS: Sodium Chloride 0.9% 10 ML Syringe FLUSH SCH ×12 (00:38→20:05)
[2021-05-15] MEDS: Oxacillin 2 GM in Sodium Chloride 0.9% 100 ML IV SCH ×6 (00:39→20:04)
[2021-05-15] MEDS: oxyCODONE 5 MG Tab PO PRN ×3 (07:28→18:57)
[2021-05-15] MEDS: Gabapentin 300 MG Cap PO SCH ×3 (07:29→20:03)
[2021-05-15] MEDS: Lactobacillus Rhamnosus GG (Probiotic) Cap PO SCH ×2 (07:29→18:57)
[2021-05-15] MEDS: Furosemide 20 MG Tab PO SCH (07:30)
[2021-05-15] MEDS: Acetaminophen 500 MG Tab PO SCH ×3 (07:30→20:03)
[2021-05-15] MEDS: Famotidine 20 MG Tab PO SCH ×2 (07:31→18:56)
[2021-05-15] MEDS: Polyethylene Glycol 3350 Powder 17 GM Packet PO SCH (07:32)
[2021-05-15] MEDS: Lidocaine 4% 1 each Patch TOP SCH (08:45)
[2021-05-15] MEDS: hydrOXYzine Pamoate 25 MG Cap PO PRN (11:11)
[2021-05-15] MEDS: Cholecalciferol (Vitamin D3) 25 MCG Tab PO SCH (11:11)
[2021-05-15] MEDS: Calcium Carbonate/Vitamin D3 1500 MG-400 Units Tab PO SCH (11:11)
[2021-05-15] MEDS: atorvaSTATin 10 MG Tab PO SCH (20:02)
[2021-05-15] MEDS: Remove Patch LIDOCAINE PATCHES TRDERM SCH (20:04)
[2021-05-16] MEDS: Sodium Chloride 0.9% 10 ML Syringe FLUSH SCH ×12 (00:05→20:46)
[2021-05-16] MEDS: Oxacillin 2 GM in Sodium Chloride 0.9% 100 ML IV SCH ×6 (00:05→20:46)
[2021-05-16] MEDS: oxyCODONE 5 MG Tab PO PRN ×3 (05:16→22:34)
[2021-05-16] MEDS: Alendronate 70 MG Tab PO SCH (06:58)
[2021-05-16] MEDS: Acetaminophen 500 MG Tab PO SCH ×3 (08:15→20:49)
[2021-05-16] MEDS: Gabapentin 300 MG Cap PO SCH ×3 (08:16→20:47)
[2021-05-16] MEDS: Famotidine 20 MG Tab PO SCH ×2 (08:16→17:34)
[2021-05-16] MEDS: Furosemide 20 MG Tab PO SCH (08:16)
[2021-05-16] MEDS: Lidocaine 4% 1 each Patch TOP SCH (08:21)
[2021-05-16] MEDS: Polyethylene Glycol 3350 Powder 17 GM Packet PO SCH (08:22)
[2021-05-16] MEDS: Lactobacillus Rhamnosus GG (Probiotic) Cap PO SCH ×2 (08:29→17:34)
[2021-05-16] MEDS: Calcium Carbonate/Vitamin D3 1500 MG-400 Units Tab PO SCH (12:11)
[2021-05-16] MEDS: Cholecalciferol (Vitamin D3) 25 MCG Tab PO SCH (12:11)
[2021-05-16] MEDS: atorvaSTATin 10 MG Tab PO SCH (20:48)
[2021-05-16] MEDS: Remove Patch LIDOCAINE PATCHES TRDERM SCH (20:49)
[2021-05-17] MEDS: Sodium Chloride 0.9% 10 ML Syringe FLUSH SCH ×13 (00:08→20:20)
[2021-05-17] MEDS: Oxacillin 2 GM in Sodium Chloride 0.9% 100 ML IV SCH ×6 (00:08→19:19)
[2021-05-17] MEDS: Furosemide 20 MG Tab PO SCH (08:00)
[2021-05-17] MEDS: Lactobacillus Rhamnosus GG (Probiotic) Cap PO SCH ×2 (08:00→17:18)
[2021-05-17] MEDS: Famotidine 20 MG Tab PO SCH ×2 (08:01→17:18)
[2021-05-17] MEDS: Acetaminophen 500 MG Tab PO SCH ×3 (08:01→19:18)
[2021-05-17] MEDS: Gabapentin 300 MG Cap PO SCH ×3 (08:01→19:17)
[2021-05-17] MEDS: Polyethylene Glycol 3350 Powder 17 GM Packet PO SCH (08:03)
[2021-05-17] MEDS: Lidocaine 4% 1 each Patch TOP SCH (08:04)
[2021-05-17] MEDS: oxyCODONE 5 MG Tab PO PRN ×2 (08:10→22:41)
[2021-05-17] MEDS: Calcium Carbonate/Vitamin D3 1500 MG-400 Units Tab PO SCH (11:50)
[2021-05-17] MEDS: Cholecalciferol (Vitamin D3) 25 MCG Tab PO SCH (11:50)
[2021-05-17] MEDS: atorvaSTATin 10 MG Tab PO SCH (19:18)
[2021-05-17] MEDS: Remove Patch LIDOCAINE PATCHES TRDERM SCH (19:20)
[2021-05-18] MEDS: Oxacillin 2 GM in Sodium Chloride 0.9% 100 ML IV SCH ×6 (00:37→20:26)
[2021-05-18] MEDS: Sodium Chloride 0.9% 10 ML Syringe FLUSH SCH ×12 (00:37→21:32)
[2021-05-18] MEDS: Gabapentin 100 MG Cap PO SCH ×3 (07:25→20:35)
[2021-05-18] MEDS: Acetaminophen 500 MG Tab PO SCH ×3 (07:26→20:24)
[2021-05-18] MEDS: Famotidine 20 MG Tab PO SCH ×2 (07:26→17:26)
[2021-05-18] MEDS: Lactobacillus Rhamnosus GG (Probiotic) Cap PO SCH ×2 (07:27→17:26)
[2021-05-18] MEDS: oxyCODONE 5 MG Tab PO PRN ×4 (07:27→20:35)
[2021-05-18] MEDS: Furosemide 20 MG Tab PO SCH (07:27)
[2021-05-18] MEDS: Polyethylene Glycol 3350 Powder 17 GM Packet PO SCH (07:28)
[2021-05-18] MEDS: Lidocaine 4% 1 each Patch TOP SCH (08:35)
[2021-05-18] MEDS: Cholecalciferol (Vitamin D3) 25 MCG Tab PO SCH (12:03)
[2021-05-18] MEDS: hydrOXYzine Pamoate 25 MG Cap PO PRN (12:04)
[2021-05-18] MEDS: Calcium Carbonate/Vitamin D3 1500 MG-400 Units Tab PO SCH (12:04)
[2021-05-18] MEDS: atorvaSTATin 10 MG Tab PO SCH (20:24)
[2021-05-18] MEDS: Remove Patch LIDOCAINE PATCHES TRDERM SCH (20:29)
[2021-05-19] MEDS: oxyCODONE 5 MG Tab PO PRN ×3 (00:41→09:37)
[2021-05-19] MEDS: Sodium Chloride 0.9% 10 ML Syringe FLUSH SCH ×6 (00:41→11:20)
[2021-05-19] MEDS: Oxacillin 2 GM in Sodium Chloride 0.9% 100 ML IV SCH ×3 (00:42→10:09)
[2021-05-19] MEDS: Lactobacillus Rhamnosus GG (Probiotic) Cap PO SCH (07:42)
[2021-05-19] MEDS: Furosemide 20 MG Tab PO SCH (07:42)
[2021-05-19] MEDS: Acetaminophen 500 MG Tab PO SCH (07:43)
[2021-05-19] MEDS: Famotidine 20 MG Tab PO SCH (07:43)
[2021-05-19] MEDS: Gabapentin 100 MG Cap PO SCH (07:44)
[2021-05-19] MEDS: Polyethylene Glycol 3350 Powder 17 GM Packet PO SCH (07:46)
[2021-05-19 07:51] VITALS: BP 134/77; PULSE 63
[2021-05-19] MEDS: Lidocaine 4% 1 each Patch TOP SCH (09:37)
[2021-05-19] MEDS: Calcium Carbonate/Vitamin D3 1500 MG-400 Units Tab PO SCH (11:22)
[2021-05-19] MEDS: Cholecalciferol (Vitamin D3) 25 MCG Tab PO SCH (11:22)
--- NOTE | 2021-05-19 16:43 | PCM.PN ---
- General Info Date of Service: 05/17/21 Subjective Update: Patient is a pleasant 66 year old female evaluated for possible discharge next week. She has been on antibiotic therapy and working on getting IV therapy for home. Doing PT, getting stronger. Discussed medications with Keely, Pharmacist, and developed a plan to decrease medications for pain prior to discharge. Patient states he pain is not completely controlled but tolerable. Continues to have bladder weakness and was told to give it time for her back to hear. We discussed seeing urology. Denies dysuria or flank pain. Feels like she is getting stronger and has adapted the home with hand rails. Denies fever or chills. Appetite has been good. Functional Status: Reports: Tolerating Diet, Urinating - Review of Systems General: Reports: Weakness HEENT: Reports: No Symptoms Pulmonary: Reports: No Symptoms Cardiovascular: Reports: No Symptoms Gastrointestinal: Reports: No Symptoms Genitourinary: Reports: Incontinence Musculoskeletal: Reports: Back Pain Skin: Reports: No Symptoms Neurological: Reports: Weakness Psychiatric: Reports: No Symptoms - Patient Data Vitals - Most Recent: Last Vital Signs Temp 98.0 F 05/19/21 07:47 Pulse 63 05/19/21 07:47 Resp 18 05/19/21 07:47 BP 134/77 05/19/21 07:47 Pulse Ox 98 05/19/21 07:47 Weight - Most Recent: 184 lb 11.2 oz I&O - Last 24 Hours: Intake & Output 05/19/21 05/19/21 05/19/21 06:59 14:59 22:59 Intake Total 300 600 Balance 300 600 Med Orders - Current: Current Medications Acetaminophen (Acetaminophen 500 Mg Tab) 500 mg PO BID PRN PRN Reason: Fever Acetaminophen (Acetaminophen 500 Mg Tab) 1,000 mg PO TID@,,20 [facility] Last Admin: 05/19/21 07:43 Dose: 1,000 mg Documented by: Alendronate Sodium (Alendronate 70 Mg Tab) 70 mg PO Q7D [facility] Last Admin: 05/16/21 06:58 Dose: 70 mg Documented by: Atorvastatin Calcium (Atorvastatin 10 Mg Tab) 20 mg PO BEDTIME [facility] Last Admin: 05/18/21 20:24 Dose: 20 mg Documented by: Calcium Carbonate (Calcium Carbonate/Vitamin D3 1500 Mg-400 Units Tab) 1 tab PO DAILY@1200 [facility] Last Admin: 05/19/21 11:22 Dose: 1 tab Documented by: Cholecalciferol (Cholecalciferol (Vitamin D3) 25 Mcg Tab) 50 mcg PO DAILY@1200 [facility] Last Admin: 05/19/21 11:22 Dose: 50 mcg Documented by: Famotidine (Famotidine 20 Mg Tab) 20 mg PO BID [facility] Last Admin: 05/19/21 07:43 Dose: 20 mg Documented by: Furosemide (Furosemide 20 Mg Tab) 20 mg PO DAILY [facility] Last Admin: 05/19/21 07:42 Dose: 20 mg Documented by: Gabapentin (Gabapentin 100 Mg Cap) 200 mg PO TID@0800,1400,1999 [facility] Last Admin: 05/19/21 07:44 Dose: 200 mg Documented by: Gabapentin (Gabapentin 100 Mg Cap) 100 mg PO TID@0800,1400,1999 [facility] Heparin Sodium (Porcine) (Heparin Sodium 100 Units/Ml 5 Ml Syringe) 300 units FLUSH Q4H [facility] Last Admin: 05/19/21 11:20 Dose: 300 units Documented by: Heparin Sodium (Porcine) (Heparin Sodium 100 Units/Ml 5 Ml Syringe) 300 units FLUSH ASDIRECTED PRN PRN Reason: PICC Hydroxyzine Pamoate (Hydroxyzine Pamoate 25 Mg Cap) 25 mg PO Q6H PRN PRN Reason: Anxiety Last Admin: 05/18/21 12:04 Dose: 25 mg Documented by: Oxacillin Sodium 2 gm/ Sodium (Chloride) 100 mls @ 100 mls/hr IV Q4H [facility] Last Admin: 05/19/21 10:09 Dose: 100 mls/hr Documented by: Lactobacillus Rhamnosus (Lactobacillus Rhamnosus Gg (Probiotic) Cap) 2 cap PO BID [facility] Last Admin: 05/19/21 07:42 Dose: 2 cap Documented by: Lidocaine (Lidocaine 4% 1 Each Patch) 3 each TOP DAILY@0900 [facility] Last Admin: 05/19/21 09:37 Dose: 3 each Documented by: Miscellaneous Information (Remove Patch Lidocaine Patches) 1 ea TRDERM BEDTIME [facility] Last Admin: 05/18/21 20:29 Dose: 1 ea Documented by: Miscellaneous Information (Remove Patch) 1 ea TRDERM Q24H [facility] Last Admin: 05/18/21 20:28 Dose: 1 ea Documented by: Ondansetron HCl (Ondansetron 4 Mg Tab.Dis) 4 mg PO Q4H PRN PRN Reason: Nausea/Vomiting Last Admin: 05/09/21 08:01 Dose: 4 mg Documented by: Oxycodone HCl (Oxycodone 5 Mg Tab) 5 mg PO Q4H PRN PRN Reason: PAIN OF 4-7 SCORE Last Admin: 05/19/21 09:37 Dose: 5 mg Documented by: Polyethylene Glycol (Polyethylene Glycol 3350 Powder 17 Gm Packet) 17 gm PO DAILY [facility] Last Admin: 05/19/21 07:46 Dose: 17 gm Documented by: Senna/Docusate Sodium (Docusate Sodium/Sennosides 50-8.6 Mg Tab) 2 tab PO BID PRN PRN Reason: Constipation Last Admin: 05/06/21 22:02 Dose: 2 tab Documented by: Sodium Chloride (Sodium Chloride 0.9% 10 Ml Syringe) 10 ml FLUSH Q4H [facility] Last Admin: 05/19/21 10:10 Dose: 10 ml Documented by: Sodium Chloride (Sodium Chloride 0.9% 10 Ml Syringe) 10 ml FLUSH Q4H [facility] Last Admin: 05/19/21 11:20 Dose: 10 ml Documented by: Sodium Chloride (Sodium Chloride 0.9% 10 Ml Syringe) 10 ml IV ASDIRECTED PRN PRN Reason: PICC Discontinued Medications Acetaminophen (Acetaminophen 500 Mg Tab) 1,000 mg PO TID [facility] Last Admin: 05/05/21 12:14 Dose: 1,000 mg Documented by: Al Hydroxide/Mg Hydroxide (Gi Cocktail Oral Solution 30 Ml) Confirm Administered Dose 30 ml .ROUTE .STK-MED ONE Stop: 05/02/21 11:40 Last Admin: 05/02/21 13:18 Dose: Not Given Documented by: Al Hydroxide/Mg Hydroxide (Gi Cocktail Oral Solution 30 Ml) 30 ml PO ONETIME ONE Stop: 05/02/21 11:40 Last Admin: 05/02/21 11:42 Dose: 30 ml Documented by: Ascorbic Acid (Ascorbic Acid 500 Mg Tab) 500 mg PO DAILY [facility] Last Admin: 05/11/21 08:43 Dose: Not Given Documented by: Calcium Carbonate (Calcium Carbonate/Vitamin D3 1500 Mg-400 Units Tab) 1 tab PO DAILY [facility] Last Admin: 05/09/21 09:59 Dose: Not Given Documented by: Cholecalciferol (Cholecalciferol (Vitamin D3) 25 Mcg Tab) 50 mcg PO DAILY [facility] Last Admin: 05/09/21 09:59 Dose: Not Given Documented by: Gabapentin (Gabapentin 300 Mg Cap) 300 mg PO TID [facility] Last Admin: 05/05/21 12:14 Dose: 300 mg Documented by: Gabapentin (Gabapentin 300 Mg Cap) 300 mg PO TID@08,14,20 [facility] Stop: 05/17/21 20:01 Last Admin: 05/17/21 19:17 Dose: 300 mg Documented by: Gadobenate Dimeglumine (Gadobenate Dimeglumine 529 Mg/Ml 15 Ml Sdv) 15 ml IVPUSH ONETIME ONE Stop: 05/08/21 07:31 Last Admin: 05/08/21 20:29 Dose: Not Given Documented by: Gadobenate Dimeglumine (Gadobenate Dimeglumine 529 Mg/Ml 15 Ml Sdv) Confirm Administered Dose 15 ml .ROUTE .STK-MED ONE Stop: 05/08/21 10:21 Last Admin: 05/08/21 20:29 Dose: Not Given Documented by: Heparin Sodium (Porcine) (Heparin Sodium 100 Units/Ml 5 Ml Syringe) 3 units FLUSH ASDIRECTED PRN PRN Reason: PICC Iopamidol (Iopamidol 755 Mg/Ml 100 Ml Bottle) 100 ml IVPUSH ONETIME STA Stop: 05/02/21 12:13 Last Admin: 05/02/21 12:39 Dose: 100 ml Documented by: Multivitamins/Minerals/Vitamin C (Multivitamin Tab) 2 tab PO DAILY [facility] Last Admin: 05/11/21 08:43 Dose: Not Given Documented by: Nitroglycerin (Nitroglycerin 0.4 Mg Tab.Sl) Confirm Administered Dose 0.4 mg .ROUTE .STK-MED ONE Stop: 05/02/21 11:31 Last Admin: 05/02/21 13:18 Dose: Not Given Documented by: Nitroglycerin (Nitroglycerin 0.4 Mg Tab.Sl) 0.4 mg SL ONETIME ONE Stop: 05/02/21 11:31 Last Admin: 05/02/21 11:32 Dose: 0.4 mg Documented by: Oxycodone HCl (Oxycodone 5 Mg Tab) 10 mg PO Q4H PRN PRN Reason: PAIN OF 8-10 SCORE Stop: 05/18/21 01:00 Last Admin: 05/17/21 08:10 Dose: 10 mg Documented by: Oxycodone HCl (Oxycodone 5 Mg Tab) 10 mg PO Q4H PRN PRN Reason: Pain Polyethylene Glycol (Polyethylene Glycol 3350 Powder 17 Gm Packet) 17 gm PO BID [facility] Last Admin: 05/05/21 08:08 Dose: 17 gm Documented by: - Exam General: Alert, Oriented Neck: Supple Lungs: Clear to Auscultation, Normal Respiratory Effort Cardiovascular: Regular Rate, Regular Rhythm GI/Abdominal Exam: Normal Bowel Sounds, Soft, Non-Tender, No Organomegaly, No Distention, No Abnormal Bruit Extremities: Pedal Edema - Patient Data Result Diagrams: 05/15/21 07:40 05/15/21 07:40 Sepsis Event Note - Evaluation Sepsis Screening Result: No Definite Risk - Focused Exam Vital Signs: Vital Signs Temp Pulse Resp BP Pulse Ox 05/19/21 07:47 98.0 F 63 18 134/77 98 - Problem List & Annotations (1) Discitis of lumbosacral region SNOMED Code(s): 5301569 Code(s): M46.47 - DISCITIS, UNSPECIFIED, LUMBOSACRAL REGION Status: Acute Priority: High Current Visit: No Annotation/Comment:: stable on outpt abx (2) H/O dizziness SNOMED Code(s): 198190648 Code(s): Z87.898 - PERSONAL HISTORY OF OTHER SPECIFIED CONDITIONS Status: Acute Current Visit: Yes (3) Anemia SNOMED Code(s): 551823272 Code(s): D64.9 - ANEMIA, UNSPECIFIED Status: Acute Current Visit: Yes Qualifiers: Anemia type: iron deficiency Iron deficiency anemia type: unspecified iron deficiency Qualified Code(s): D50.9 - Iron deficiency anemia, unspecified (4) Anemia SNOMED Code(s): 597850802 Code(s): D64.9 - ANEMIA, UNSPECIFIED Status: Acute Current Visit: Yes (5) Nausea SNOMED Code(s): 467693607 Code(s): R11.0 - NAUSEA Status: Resolved Priority: Medium Current Visit: Yes (6) Leg edema SNOMED Code(s): 368319684 Code(s): R60.0 - LOCALIZED EDEMA Status: Chronic Current Visit: Yes (7) Leg edema SNOMED Code(s): 438631147 Code(s): R60.0 - LOCALIZED EDEMA Status: Acute Priority: High Current Visit: Yes Annotation/Comment:: Reordered BLE duplex US. Start lasix. (8) Incontinence SNOMED Code(s): 91354596 Code(s): R32 - UNSPECIFIED URINARY INCONTINENCE Status: Acute Current Visit: Yes Qualifiers: Urinary Incontinence type: functional incontinence - Problem List Review Problem List Initiated/Reviewed/Updated: Yes - My Orders Last 24 Hours: My Active Orders 05/19/21 08:47 Renew/Continue Central Line Access [OM.PC] Routine 05/19/21 12:30 Ready for Discharge [RC] PER UNIT ROUTINE 05/25/21 08:00 Gabapentin [Neurontin] 100 mg PO TID@0800,1400,1999 - Assessment Assessment:: presyncope ekg changes neg trop discitis cervical neck pain positive ddimer pedal edema - Plan Plan:: Patient will be monitored through night and go to ER if symptoms of chest pain, new neuro changes occur. Declines inpatient or ER now. Iron studies and fobt ordered. Head ct discussed but appears to be muscular in nature. Follow up visit tomorrow. 05/09/2021 Plan:US lower extremities Lasix 20 mg daily Monitor labs for improvement in anemia Continue PT with plans to resume home Follow with ID for abx plans See patient again as needed. 05/17/2021 Plan: decrease oxycodone as discussed with pharmacist. Decrease gabapentin. Discussed side effects of overmedication with the patient. Pursue orders for home antibiotic therapy. Continue PT. Follow up one week post discharge. Monitor pain for the next 48 hours to determine if discharge is appropriate. Follow with neurosurgery and ID as scheduled. Follow up on Saturday.
--- NOTE | 2021-05-19 16:51 | PCM.PN ---
- General Info Date of Service: 05/19/21 Subjective Update: Patient had her pain medications reduced and is tolerating it fine. Denies worrisome s/s. Feels stronger and ready to go home. Has considered cymbalta for pain as previously discussed. Willing to try a low dose cymbalta and follow up in one week. Discussed [facility] goal of getting off the gabapentin and oxycodone if possible. She continues to have some leg edema but less than previously . Outpatient antibiotics via has been set up and arrived today. Patient training scheduled for this afternoon. Denies new symptoms. Bladder unchanged, may need urology consult in future. Excited to go home. - Review of Systems General: Reports: Weakness HEENT: Reports: No Symptoms Pulmonary: Reports: No Symptoms Cardiovascular: Reports: No Symptoms Gastrointestinal: Reports: No Symptoms Genitourinary: Reports: Incontinence Musculoskeletal: Reports: Back Pain Neurological: Reports: No Symptoms - Patient Data Vitals - Most Recent: Last Vital Signs Temp 98.0 F 05/19/21 07:47 Pulse 63 05/19/21 07:47 Resp 18 05/19/21 07:47 BP 134/77 05/19/21 07:47 Pulse Ox 98 05/19/21 07:47 Weight - Most Recent: 184 lb 11.2 oz I&O - Last 24 Hours: Intake & Output 05/19/21 05/19/21 05/19/21 06:59 14:59 22:59 Intake Total 300 600 Balance 300 600 Med Orders - Current: Current Medications Acetaminophen (Acetaminophen 500 Mg Tab) 500 mg PO BID PRN PRN Reason: Fever Acetaminophen (Acetaminophen 500 Mg Tab) 1,000 mg PO TID@,, [facility] Last Admin: 05/19/21 07:43 Dose: 1,000 mg Documented by: Alendronate Sodium (Alendronate 70 Mg Tab) 70 mg PO Q7D [facility] Last Admin: 05/16/21 06:58 Dose: 70 mg Documented by: Atorvastatin Calcium (Atorvastatin 10 Mg Tab) 20 mg PO BEDTIME [facility] Last Admin: 05/18/21 20:24 Dose: 20 mg Documented by: Calcium Carbonate (Calcium Carbonate/Vitamin D3 1500 Mg-400 Units Tab) 1 tab PO DAILY@1200 [facility] Last Admin: 05/19/21 11:22 Dose: 1 tab Documented by: Cholecalciferol (Cholecalciferol (Vitamin D3) 25 Mcg Tab) 50 mcg PO DAILY@1200 [facility] Last Admin: 05/19/21 11:22 Dose: 50 mcg Documented by: Famotidine (Famotidine 20 Mg Tab) 20 mg PO BID [facility] Last Admin: 05/19/21 07:43 Dose: 20 mg Documented by: Furosemide (Furosemide 20 Mg Tab) 20 mg PO DAILY [facility] Last Admin: 05/19/21 07:42 Dose: 20 mg Documented by: Gabapentin (Gabapentin 100 Mg Cap) 200 mg PO TID@0800,1400,1999 [facility] Last Admin: 05/19/21 07:44 Dose: 200 mg Documented by: Gabapentin (Gabapentin 100 Mg Cap) 100 mg PO TID@0800,1400,1999 [facility] Heparin Sodium (Porcine) (Heparin Sodium 100 Units/Ml 5 Ml Syringe) 300 units FLUSH Q4H [facility] Last Admin: 05/19/21 11:20 Dose: 300 units Documented by: Heparin Sodium (Porcine) (Heparin Sodium 100 Units/Ml 5 Ml Syringe) 300 units FLUSH ASDIRECTED PRN PRN Reason: PICC Hydroxyzine Pamoate (Hydroxyzine Pamoate 25 Mg Cap) 25 mg PO Q6H PRN PRN Reason: Anxiety Last Admin: 05/18/21 12:04 Dose: 25 mg Documented by: Oxacillin Sodium 2 gm/ Sodium (Chloride) 100 mls @ 100 mls/hr IV Q4H [facility] Last Admin: 05/19/21 10:09 Dose: 100 mls/hr Documented by: Lactobacillus Rhamnosus (Lactobacillus Rhamnosus Gg (Probiotic) Cap) 2 cap PO BID [facility] Last Admin: 05/19/21 07:42 Dose: 2 cap Documented by: Lidocaine (Lidocaine 4% 1 Each Patch) 3 each TOP DAILY@0900 [facility] Last Admin: 05/19/21 09:37 Dose: 3 each Documented by: Miscellaneous Information (Remove Patch Lidocaine Patches) 1 ea TRDERM BEDTIME [facility] Last Admin: 05/18/21 20:29 Dose: 1 ea Documented by: Miscellaneous Information (Remove Patch) 1 ea TRDERM Q24H [facility] Last Admin: 05/18/21 20:28 Dose: 1 ea Documented by: Ondansetron HCl (Ondansetron 4 Mg Tab.Dis) 4 mg PO Q4H PRN PRN Reason: Nausea/Vomiting Last Admin: 05/09/21 08:01 Dose: 4 mg Documented by: Oxycodone HCl (Oxycodone 5 Mg Tab) 5 mg PO Q4H PRN PRN Reason: PAIN OF 4-7 SCORE Last Admin: 05/19/21 09:37 Dose: 5 mg Documented by: Polyethylene Glycol (Polyethylene Glycol 3350 Powder 17 Gm Packet) 17 gm PO DAILY [facility] Last Admin: 05/19/21 07:46 Dose: 17 gm Documented by: Senna/Docusate Sodium (Docusate Sodium/Sennosides 50-8.6 Mg Tab) 2 tab PO BID PRN PRN Reason: Constipation Last Admin: 05/06/21 22:02 Dose: 2 tab Documented by: Sodium Chloride (Sodium Chloride 0.9% 10 Ml Syringe) 10 ml FLUSH Q4H [facility] Last Admin: 05/19/21 10:10 Dose: 10 ml Documented by: Sodium Chloride (Sodium Chloride 0.9% 10 Ml Syringe) 10 ml FLUSH Q4H [facility] Last Admin: 05/19/21 11:20 Dose: 10 ml Documented by: Sodium Chloride (Sodium Chloride 0.9% 10 Ml Syringe) 10 ml IV ASDIRECTED PRN PRN Reason: PICC Discontinued Medications Acetaminophen (Acetaminophen 500 Mg Tab) 1,000 mg PO TID [facility] Last Admin: 05/05/21 12:14 Dose: 1,000 mg Documented by: Al Hydroxide/Mg Hydroxide (Gi Cocktail Oral Solution 30 Ml) Confirm Administered Dose 30 ml .ROUTE .STK-MED ONE Stop: 05/02/21 11:40 Last Admin: 05/02/21 13:18 Dose: Not Given Documented by: Al Hydroxide/Mg Hydroxide (Gi Cocktail Oral Solution 30 Ml) 30 ml PO ONETIME ONE Stop: 05/02/21 11:40 Last Admin: 05/02/21 11:42 Dose: 30 ml Documented by: Ascorbic Acid (Ascorbic Acid 500 Mg Tab) 500 mg PO DAILY [facility] Last Admin: 05/11/21 08:43 Dose: Not Given Documented by: Calcium Carbonate (Calcium Carbonate/Vitamin D3 1500 Mg-400 Units Tab) 1 tab PO DAILY [facility] Last Admin: 05/09/21 09:59 Dose: Not Given Documented by: Cholecalciferol (Cholecalciferol (Vitamin D3) 25 Mcg Tab) 50 mcg PO DAILY [facility] Last Admin: 05/09/21 09:59 Dose: Not Given Documented by: Gabapentin (Gabapentin 300 Mg Cap) 300 mg PO TID [facility] Last Admin: 05/05/21 12:14 Dose: 300 mg Documented by: Gabapentin (Gabapentin 300 Mg Cap) 300 mg PO TID@08,14,20 [facility] Stop: 05/17/21 20:01 Last Admin: 05/17/21 19:17 Dose: 300 mg Documented by: Gadobenate Dimeglumine (Gadobenate Dimeglumine 529 Mg/Ml 15 Ml Sdv) 15 ml IVPUSH ONETIME ONE Stop: 05/08/21 07:31 Last Admin: 05/08/21 20:29 Dose: Not Given Documented by: Gadobenate Dimeglumine (Gadobenate Dimeglumine 529 Mg/Ml 15 Ml Sdv) Confirm Administered Dose 15 ml .ROUTE .STK-MED ONE Stop: 05/08/21 10:21 Last Admin: 05/08/21 20:29 Dose: Not Given Documented by: Heparin Sodium (Porcine) (Heparin Sodium 100 Units/Ml 5 Ml Syringe) 3 units FLUSH ASDIRECTED PRN PRN Reason: PICC Iopamidol (Iopamidol 755 Mg/Ml 100 Ml Bottle) 100 ml IVPUSH ONETIME STA Stop: 05/02/21 12:13 Last Admin: 05/02/21 12:39 Dose: 100 ml Documented by: Multivitamins/Minerals/Vitamin C (Multivitamin Tab) 2 tab PO DAILY [facility] Last Admin: 05/11/21 08:43 Dose: Not Given Documented by: Nitroglycerin (Nitroglycerin 0.4 Mg Tab.Sl) Confirm Administered Dose 0.4 mg .ROUTE .STK-MED ONE Stop: 05/02/21 11:31 Last Admin: 05/02/21 13:18 Dose: Not Given Documented by: Nitroglycerin (Nitroglycerin 0.4 Mg Tab.Sl) 0.4 mg SL ONETIME ONE Stop: 05/02/21 11:31 Last Admin: 05/02/21 11:32 Dose: 0.4 mg Documented by: Oxycodone HCl (Oxycodone 5 Mg Tab) 10 mg PO Q4H PRN PRN Reason: PAIN OF 8-10 SCORE Stop: 05/18/21 01:00 Last Admin: 05/17/21 08:10 Dose: 10 mg Documented by: Oxycodone HCl (Oxycodone 5 Mg Tab) 10 mg PO Q4H PRN PRN Reason: Pain Polyethylene Glycol (Polyethylene Glycol 3350 Powder 17 Gm Packet) 17 gm PO BID [facility] Last Admin: 05/05/21 08:08 Dose: 17 gm Documented by: - Exam General: Alert, Oriented, Cooperative, No Acute Distress Neck: Supple Lungs: Clear to Auscultation, Normal Respiratory Effort Cardiovascular: Regular Rate, Regular Rhythm GI/Abdominal Exam: Normal Bowel Sounds, Soft, Non-Tender Extremities: Pedal Edema - Patient Data Result Diagrams: 05/15/21 07:40 05/15/21 07:40 Sepsis Event Note - Evaluation Sepsis Screening Result: No Definite Risk - Focused Exam Vital Signs: Vital Signs Temp Pulse Resp BP Pulse Ox 05/19/21 07:47 98.0 F 63 18 134/77 98 - Problem List & Annotations (1) Discitis of lumbosacral region SNOMED Code(s): 0898046 Code(s): M46.47 - DISCITIS, UNSPECIFIED, LUMBOSACRAL REGION Status: Acute Priority: High Current Visit: No Annotation/Comment:: stable on outpt abx (2) H/O dizziness SNOMED Code(s): 325495269 Code(s): Z87.898 - PERSONAL HISTORY OF OTHER SPECIFIED CONDITIONS Status: Acute Current Visit: Yes (3) Anemia SNOMED Code(s): 442685692 Code(s): D64.9 - ANEMIA, UNSPECIFIED Status: Acute Current Visit: Yes Qualifiers: Anemia type: iron deficiency Iron deficiency anemia type: unspecified iron deficiency Qualified Code(s): D50.9 - Iron deficiency anemia, unspecified (4) Anemia SNOMED Code(s): 779210578 Code(s): D64.9 - ANEMIA, UNSPECIFIED Status: Acute Current Visit: Yes (5) Nausea SNOMED Code(s): 632549128 Code(s): R11.0 - NAUSEA Status: Resolved Priority: Medium Current Visit: Yes (6) Leg edema SNOMED Code(s): 920915916 Code(s): R60.0 - LOCALIZED EDEMA Status: Chronic Current Visit: Yes (7) Leg edema SNOMED Code(s): 428571915 Code(s): R60.0 - LOCALIZED EDEMA Status: Acute Priority: High Current Visit: Yes Annotation/Comment:: Reordered BLE duplex US. Start lasix. (8) Incontinence SNOMED Code(s): 33223355 Code(s): R32 - UNSPECIFIED URINARY INCONTINENCE Status: Acute Current Visit: Yes Qualifiers: Urinary Incontinence type: functional incontinence - Problem List Review Problem List Initiated/Reviewed/Updated: Yes - My Orders Last 24 Hours: My Active Orders 05/19/21 08:47 Renew/Continue Central Line Access [OM.PC] Routine 05/19/21 12:30 Ready for Discharge [RC] PER UNIT ROUTINE 05/25/21 08:00 Gabapentin [Neurontin] 100 mg PO TID@0800,1400,1999 - Assessment Assessment:: presyncope ekg changes neg trop discitis cervical neck pain positive ddimer pedal edema - Plan Plan:: Patient will be monitored through night and go to ER if symptoms of chest pain, new neuro changes occur. Declines inpatient or ER now. Iron studies and fobt ordered. Head ct discussed but appears to be muscular in nature. Follow up visit tomorrow. 05/09/2021 Plan:US lower extremities Lasix 20 mg daily Monitor labs for improvement in anemia Continue PT with plans to resume home Follow with ID for abx plans See patient again as needed. 05/17/2021 Plan: decrease oxycodone as discussed with pharmacist. Decrease gabapentin. Discussed side effects of overmedication with the patient. Pursue orders for home antibiotic therapy. Continue PT. Follow up one week post discharge. Monitor pain for the next 48 hours to determine if discharge is appropriate. Follow with neurosurgery and ID as scheduled. Follow up on Saturday. 05/19/2021 Plan: Discharge to home with C Start cymbalta 30 mg daily and decrease gabapentin. Discussed side effects of medications and potential interaction. Patient education provided. Follow up in clinic in one week to assess labs and discuss PICC line removal. Patient and pleasant and reliable.
[2021-05-25] MEDS ORDERED: Gabapentin 100 MG Cap PO SCH (08:00)
== END 2021-05-19 13:05 | disposition home health service (06) | DRG 561 ==
LOC: LL.MS 13:20
PROVIDERS: ADMIT Physician Assistant; ATTEND Physician Assistant
DX: Z47.89 Encounter for other orthopedic aftercare (principal); E78.5 Hyperlipidemia, unspecified; H54.7 Unspecified visual loss; Z20.822 Contact with and (suspected) exposure to COVID-19; D50.9 Iron deficiency anemia, unspecified; M46.47 Discitis, unspecified, lumbosacral region; E66.9 Obesity, unspecified; Z68.29 Body mass index [BMI] 29.0-29.9, adult; R60.0 Localized edema; R32 Unspecified urinary incontinence; R11.0 Nausea; Z90.49 Acquired absence of other specified parts of digestive tract; Z90.710 Acquired absence of both cervix and uterus; Z98.51 Tubal ligation status; Z98.890 Other specified postprocedural states; Z90.89 Acquired absence of other organs
CPT/HCPCS: 36415; 71046; 71275; 72158; 80053; 81001; 82272; 82565; 82728; 82947; 83540; 83550; 83690; 83735; 84460; 84484; 85025; 85379; 85652; 86140; 87804; 93005; 93970; 97162-GP; 97165-GO; 97530-GP; 97535-GO; A9270-GY; A9577; J1642; J2700; Q0177; Q9967; U0002